=== PATIENT | female | born 1960 | race Caucasian/White ===

== ENCOUNTER → 2023-11-24 12:13 | Outpatient (REF) | payer BC, SELFPAY | LOC: WDC 12:13 | PROVIDERS: ATTENDING PHYSICIAN Family Medicine | DX: Z12.31 Encounter for screening mammogram for malignant neoplasm of breast (principal) | CPT/HCPCS: 77063; 77067 ==

== ENCOUNTER → 2023-12-28 12:03 | Outpatient (REF) | payer BC, SELFPAY | LOC: MRI 3T 12:03 | PROVIDERS: ATTENDING PHYSICIAN Family Medicine | DX: G43.809 Other migraine, not intractable, without status migrainosus (principal) | CPT/HCPCS: 70551 ==

== ENCOUNTER 2024-01-07 00:26 | Inpatient (IN) | payer BC, SELFPAY ==
[2024-01-06 19:11] VITALS: BP 122/72
--- NOTE | 2024-01-06 19:59 | ED.GENMED ---
History of Present Illness
General
Chief Complaint: Abdominal Symptoms
Source: patient
Exam Limitations: none
Time Seen by Provider: 01/06/24 19:34
History of Present Illness
History of Present Illness:
This is a 63 year old female that comes in with c/o diarrhea and abd pain. States that she started last night with diarrhea. States that she know thinks she has a UTI. States that she has abd pain and a migraine. States that she did take some
Pyridium. States that she has her normal migraine headache and feels lightheaded. States that she has urinary burning and frequency. staets that she was constipated and they gave her an emema and since that time she has had diarrhea. Denies
any fever, chills, chest pain, SOB, nausea, vomiting.
Past History
Past History
ED Past Medical History: HTN, Hypercholesterolemia, Psychiatric (Anxiety, depression) and Other (Kidney stones, Migraines, UTI, )
ED Past Surgical History: Gynecological (Hysterectomy), Orthopedic (Knee arthroscopies, Left ankle plates and screws), Urological (Lithotripsy with stent) and Other (Gastric band surgery 10/31, Rhizotomy, )
Social History
Tobacco: Non-smoker
Alcohol: None
Personal:
Living: with family
Employment: Employed
Family History
Family History: Other (Noncontributory)
Review of Systems
Review of Systems
All Other Systems: ROS reviewed and negative except as documented in HPI and ROS
Constitutional: Reports no symptoms; Denies fever or chills
EENT: Reports no symptoms
Respiratory: Reports no symptoms; Denies cough or trouble breathing
Cardiac: Reports no symptoms; Denies chest pain
ABD/GI: Reports abdominal pain and diarrhea; Denies nausea or vomiting
: Reports dysuria, frequency and urgency
Musculoskeletal: Reports no symptoms
Skin: Reports no symptoms
Neurological: Reports headache; Denies dizzy
Psychiatric: Reports no symptoms
Phy Exam
General Physical Exam
General Presentation: mild distress
General age: appears stated age
General Skin: warm and dry
General Habitus: normal
General Mental: alert
General Hydration: appears well hydrated
ENT Exam
ENT Exam: TM's normal, pharynx normal and neck supple
Eye Exam
Eye Exam: EOMI
Cardiovascular Exam
Cardiovascular Exam: regular rate/rhythm, no edema, no murmur and normal peripheral pulses
Pulmonary Exam
Pulmonary Exam: lungs clear, no respiratory distress, no rales, chest non tender, no crackles, no rhonchi, no wheezing and no cough
Gastrointestinal Exam
Gastrointestinal Exam: normal bowel sounds, soft, no organomegaly, no pulsatile mass, non distended and tender (Generalized tenderness with palpation)
Musculoskeletal Exam
Musculoskeletal Exam: full ROM and no edema
Skin Exam
Skin Exam: normal color, warm/dry, no rash and no petechia
Psychiatric Exam
Psychiatric Exam: normal mood/affect
Course
Orders/Labs/Results
Orders:
Orders
01/06/24 19:58
STOOL [C difficile Antigen & Toxins] Urgent
JANE Source: Feces/Stool
Specimen Description:
Stool Culture Urgent
JANE Source: Feces/Stool
Specimen Description:
Stool For WBC Urgent
JANE Source: Feces/Stool
Specimen Description:
0.9% Sodium Chloride 1000 ml [Nss] 1,000 ml IV BOLUS
Ketorolac [Toradol] 30 mg IV NOW STA
01/06/24 20:02
Acetaminophen 1000MG/100Ml [Ofirmev] 1,000 mg in 100 ml IV ONCE
Acetaminophen IV Indication:: ED Narcotic Naive Pt-ONCE
01/06/24 20:26
Complete Blood Count/With Diff Urgent
Comprehensive Metabolic Panel Urgent
01/06/24 20:33
Ondansetron Injectable [Zofran] 4 mg .ROUTE .[facility]
01/06/24 20:36
Ondansetron Injectable [Zofran] 4 mg IV NOW STA
01/06/24 21:07
CT Abd/pel (oral only)-[facility] Only Urgent
Comment:
Reason For Exam: Generalized abd pain
Iohexol [Omnipaque] See Protocol PO NOW STA
01/06/24 21:45
HYDROmorphone [Dilaudid] 0.5 mg IV NOW STA
01/06/24 22:06
Urinalysis Reflex To Culture Urgent
Date Specimen was Collected: 01/06/24
Time Specimen was Collected: 22:03
Urine Microscopic Reflex Cult Urgent
Urine Culture Urgent
JANE Source: U
Specimen Description:
Date Specimen was Collected: 01/06/24
Time Specimen was Collected: 22:03
Abnormal Lab Results
01/06/24 01/06/24
20:26 22:06
MCH 31.9 H pg
(27.0-31.0)
Absolute Neuts (auto) 7.9 H 10^3/uL
(1.4-6.5)
Absolute Lymphs (auto) 0.6 L 10^3/uL
(1.2-3.4)
Absolute Monos (auto) 0.8 H 10^3/uL
(0.1-0.6)
Neutrophils % 82.7 H %
(42.2-75.2)
Lymphocytes % 6.6 L %
(20.5-51.1)
Sodium 130 L mmol/L
(135-145)
Potassium 5.3 H mmol/L
(3.5-5.1)
Chloride 96 L mmol/L
(98-107)
Carbon Dioxide 21 L mmol/L
(22-30)
BUN 34 H mg/dl
(7-17)
Creatinine 2.1 H mg/dL
(0.6-1.0)
Glucose 147 H mg/dl
(70-99)
Calcium 10.8 H mg/dl
(8.4-10.2)
AST 37 H U/L
(14-36)
Alkaline Phosphatase 131 H U/L
(38-126)
Urine Nitrite (Reflex) Positive A
(Negative)
Urine Bilirubin 2+ A
(Negative)
Urine Urobilinogen 2+ A
(Neg - 1+)
Urine Bacteria (Reflex) Many A
(Negative)
01/06/24 20:26
01/06/24 20:26
Sodium slightly low. hyperkalemia, Chloride low. carbon dioxide low. acute renal insufficiency, Hyperglycemia, Calcium slightly elevated. Alk phos elevated, Urine positive for infection.
Vital Signs
Initial and Last Documented VS:
Initial Vital Signs
Temp Pulse Resp BP Pulse Ox
98.2 F 118 22 122/72 97
01/06/24 19:11 01/06/24 19:11 01/06/24 19:11 01/06/24 19:11 01/06/24 19:11
Last Documented Vital Signs
Temp Pulse Resp BP Pulse Ox
98.2 F 108 20 145/71 94
01/06/24 19:11 01/06/24 22:40 01/06/24 22:40 01/06/24 22:40 01/06/24 22:40
MDM/Problems Addressed
Differential Diagnosis Includes:
Colitis,
MDM/Problems Addressed:
This is a 63 year old female that comes in with c/o diarrhea and UTI. States that she started with diarrhea last night after she had an Enema and she has not stopped. States that she also feels she has a UTI from the diarrhea. States that she has a
migraine.
Will check labs, Give IV fluids, CT abd and medicate for pain.
Back into see patient. Explained that her Blood work shows acute renal insufficiency and that her CT shows she has colitis. Urine is most likely also showing infection. Patient states that she is still having abd pain. Will start on IV antibiotics
and admit patient. Hospitalist notified.
Chronic conditions affecting care:
NA
Acute Exacerbation and/or Progression of Chronic Illness:
NA
*Radiology
Radiology exam reviewed: radiology read reviewed (CT Night hawk- Diffuse colonic wall thickening, compatible with Underlying colitis. NO bowel obstruction. Distended gallbladder without secondary signs of choleystitis. Incidentals. Small ascites.
Gastric banding which appears in appropriate position. NO obstrauctive uropathy. No hepatic or ) and all reviewed NAD by ED Provider (CT cont- or pancreatic mass. No abdominal aortic aneurysm. No acute osseous abnormality. NO acute abnormality
within the visualized lungs. Mild distal esophageal wall thickening. )
*Pulse Oximetry
Patient hypoxic: no
*EKG
Interpreted by ED Provider?: NA
Rate: EKG- N/A
*Stallion Keeper Interpretation
Rate: Stallion Keeper- N/A
*Critical Care Note
Total Time (30-74mins, 75-104mins- exclusive of procedures): Not Applicable
ED Attending Note
-
Portions of this chart may have been created with voice recognition software.� Occasional wrong word or��sound alike� substitutions may have occurred due to the inherent limitations of voice recognition software.
Discharge Plan
Departure
Patient Disposition: Admit
Date of Disposition: 01/06/24
Time of Disposition: 23:58
Admit to: Med/Surg
Presentation/result/management discussed w/ accepting MD/DO: Hospitalist
Patient with high blood pressure during this ER visit?: Yes
Condition: Good
Covid-19: Not Applicable
Discharge Problem:
Abdominal pain, Colitis, Possible UTI
Prescriptions:
No Action
tizanidine 4 MG tablet
16 mg PO HS
risperidone 1 MG tablet
2 mg PO DAILY
amlodipine 5 MG tablet
5 mg PO DAILY
diphenhydramine HCl [Banophen] 25 MG capsule
50 mg PO HS
mirabegron [Myrbetriq] 50 MG tablet extended release 24 hr
50 mg PO DAILY
lamotrigine [Lamictal] 150 MG tablet
150 mg PO DAILY
risperidone 2 MG tablet
4 mg PO HS
lorazepam 0.5 MG tablet
1 mg PO HS
Patient Comments:
patient picked up on 12/25/20 #90
zolpidem 5 MG tablet
5 mg PO HS
Patient Comments:
pdmp picked up on 01/08/21 #30 for 30 days
lamotrigine 100 MG tablet
100 mg PO DAILY
venlafaxine 225 MG tablet extended release 24hr
225 mg PO DAILY
Demerol 100 MG tablet
50 mg PO Q6HPRN PRN (Reason: migraines)
Patient Comments:
pdmp picked on 12/20/2020# 68 for 17 days
zaleplon 10 MG capsule
10 mg PO HS
Patient Comments:
pdmp hop picker on 01/15/2021# 30 for 30 days
metaxalone [Skelaxin] 800 MG tablet
800 mg PO TIDPRN PRN (Reason: muscle pain)
Emgality Syringe
1 dose IM MONTHLY
hydrocodone-acetaminophen 1 TABLET tablet
1 tab PO Q4HPRN PRN (Reason: pain)
Rx Instructions:
5mg tab
Referrals:
UNKNOWN - PT DOES,NOT KNOW [Unknown Provider] -
Interventions
Interventions:
*Risk Screen - Suicide Last Done: 01/06/24 19:11
*General Assessment Last Done: 01/06/24 20:11
*Neglect/Abuse Screening Last Done: 01/06/24 19:11
*ED COVID-19 Vaccine History Last Done: 01/06/24 20:11
IE-Ptrase-Tsohwmrclt Assessment Last Done: 01/06/24 20:13
ED-Female Genitourinary Assessment Last Done: 01/06/24 20:13
ED- Neurological Assessment Last Done: 01/06/24 20:13
Discharge Date and Time
Print Language: GABONESE
[2024-01-06 20:10] VITALS: BMI 24.7
[2024-01-06] MEDS: NSS 1000 IV (20:34)
[2024-01-06 20:35] LABS: Hematocrit 39.3 % (37.0-47.0); Hemoglobin 13.8 g/dL (12.0-16.0); Mean Corp Hgb Conc. 35.1 g/dL (33.0-37.0); Mean Corpuscular Hgb 31.9 pg (27.0-31.0); Mean Corpuscular Volume 90.8 fL (81.0-99.0); Mean Platelet Volume 9.7 fL (7.4-10.4); Platelet Count 286 10^3/uL (130-400); Red Blood Cell Count 4.33 10^6/uL (4.20-5.40); Red Cell Dist. Width 13.1 % (11.5-14.5); White Blood Cell Count 9.5 10^3/uL (4.8-10.8)
[2024-01-06] MEDS: TORADOL 30 MG IV (20:35)
[2024-01-06] MEDS: OFIRMEV 100 IV (20:35)
[2024-01-06] MEDS: ZOFRAN 4 MG IV (20:36)
[2024-01-06 20:53] LABS: % Basophils 0.6 % (0-2); % Eosinophils 1.4 % (0-6); % Immature Granulocytes 0.2 % (0-0.5); % Lymphocytes 6.6 % (20.5-51.1); % Monocytes 8.5 % (1.7-9.3); % Neutrophils 82.7 % (42.2-75.2); Absolute Basophils 0.1 10^3/uL (0-0.2); Absolute Eosinophils 0.1 10^3/uL (0-0.7); Absolute Lymphocytes 0.6 10^3/uL (1.2-3.4); Absolute Monocytes 0.8 10^3/uL (0.1-0.6); Absolute Neutrophils 7.9 10^3/uL (1.4-6.5); Nucleated Red Blood Cells % 0 %
[2024-01-06 20:54] LABS: ALT (SGPT) 23 U/L (0-35); AST (SGOT) 37 U/L (14-36); Albumin 4.3 g/dl (3.5-5.0); Alkaline Phosphatase 131 U/L (38-126); Blood Urea Nitrogen 34 mg/dl (7-17); Calcium 10.8 mg/dl (8.4-10.2); Carbon Dioxide 21 mmol/L (22-30); Chloride 96 mmol/L (98-107); Estimated Creatinine Clearance 25 ml/min; Glucose 147 mg/dl (70-99); Potassium 5.3 mmol/L (3.5-5.1); Sodium 130 mmol/L (135-145); Total Bilirubin 0.7 mg/dl (0.2-1.3); Total Protein 6.7 g/dl (6.3-8.2); eGFR 26.31
[2024-01-06] MEDS: OMNIPAQUE 50 ML PO (21:19)
[2024-01-06 21:22] VITALS: BP 145/71
[2024-01-06] MEDS: DILAUDID 0.5 MG IV (21:56)
[2024-01-06 22:03] VITALS: BP 145/71
[2024-01-06 22:13] LABS: Urine Albumin Trace (Neg - Trace); Urine Bilirubin 2+ (Negative); Urine Character Clear (Clear); Urine Color Orange; Urine Glucose Negative (Negative); Urine Ketone Negative (Negative); Urine Leukocyte Negative (Negative); Urine Nitrite Positive (Negative); Urine Occult Blood Negative (Negative); Urine Urobilinogen 2+ (Neg - 1+)
[2024-01-06 22:22] LABS: Urine Bacteria Many (Negative); Urine Red Blood Cell 0-2 /HPF (0-2)
[2024-01-06 22:23] LABS: Urine Hyaline Cast 0-2 /LPF (0-2)
[2024-01-06 22:40] VITALS: BP 145/71
[2024-01-07] MEDS: DILAUDID 1 MG IV ×6 (00:04→19:27)
[2024-01-07] MEDS: ZOSYN 50 IV ×5 (00:05→23:58)
[2024-01-07 00:17] VITALS: BP 106/68
--- NOTE | 2024-01-07 00:22 | HPS.HSE ---
Family Physician
-
Family Physician: Karan Menjivar Jr.
Chief Complaint
-
abdominal pain, Urinary sxa, dirrhea
History of Present Illness
63F HX HX HTN, CKD pw diarrhea and abd pain associated with migraine
Associated urinary Sx with dysuria
ROS
constipated and they gave her an emema and since that time she has had diarrhea.
Denies any fever, chills, chest pain, SOB, nausea, vomiting.
Medical History
Past Medical History
Past Medical History: Reports Other
Additional Past Medical History:
HTN, Hypercholesterolemia, Psychiatric (Anxiety, depression) and Other (Kidney stones, Migraines, UTI, ) CKD3
Past Surgical History: Reports Other
Additional Past Surgical History:
Gynecological (Hysterectomy), Orthopedic (Knee arthroscopies, Left ankle plates and screws), Urological (Lithotripsy with stent) and Other (Gastric band surgery 10/31, Rhizotomy, )
Social History
Tobacco: Non-smoker
Drug: None
Family History
Family History: Not pertinent
Allergies / Home Medications
Allergies reflects when Allergies were last updated in [facility].
Home Medications with original date entered in [facility]
Allergy/Medication List:
Allergies
Allergy/AdvReac Type Severity Reaction Status Date / Time
CAIO Inhibitors Allergy Anaphylaxis Verified 01/06/24 19:14
latex Allergy WELTS Verified 01/06/24 19:14
Home Medications
risperidone 1 mg tablet 2 mg PO DAILY 06/28/14
tizanidine 4 mg tablet 16 mg PO HS 06/28/14
amlodipine 5 mg tablet 5 mg PO DAILY 10/06/17
diphenhydramine HCl 25 mg capsule (Banophen) 50 mg PO HS 10/06/17
mirabegron 50 mg tablet,extended release 24 hr (Myrbetriq) 50 mg PO DAILY 10/06/17
lamotrigine 100 mg tablet 100 mg PO DAILY 10/27/19
lamotrigine 150 mg tablet (Lamictal) 150 mg PO DAILY 10/27/19
lorazepam 0.5 mg tablet 1 mg PO HS anxiety 10/27/19
meperidine 100 mg tablet (Demerol) 50 mg PO Q6HPRN PRN migraines 10/27/19
metaxalone 800 mg tablet (Skelaxin) 800 mg PO TIDPRN PRN muscle pain 10/27/19
risperidone 2 mg tablet 4 mg PO HS 10/27/19
venlafaxine 225 mg tablet,extended release 24 hr 225 mg PO DAILY 10/27/19
zaleplon 10 mg capsule 10 mg PO HS Sleep 10/27/19
zolpidem 5 mg tablet 5 mg PO HS Sleep 10/27/19
Emgality Syringe 1 dose IM MONTHLY 01/06/24
hydrocodone 5 mg-acetaminophen 325 mg tablet 1 tab PO Q4HPRN PRN pain 01/06/24
Review of Systems
-
Constitutional: Reports No Symptoms
EENT: Reports No Symptoms
Respiratory: Reports No Symptoms
Cardiac: Reports No Symptoms
Abdomen/GI: Reports See HPI, Abdominal Pain and Diarrhea
: Reports No Symptoms
Musculoskeletal: Reports No Symptoms
Skin: Reports No Symptoms
Neurological: Reports No Symptoms
Endocrine: Reports No Symptoms
Hematologic/Lymphatic: Reports No Symptoms
Psych: Reports No Symptoms
Physical Exam
Vital Signs
Vital Signs
Temp Pulse Resp BP Pulse Ox
98.2 F 105 20 106/68 96
01/06/24 19:11 01/07/24 00:17 01/07/24 00:17 01/07/24 00:17 01/07/24 00:17
Physical Exam
General: Well Developed, Well Nourished and No Apparent Distress
HEENT: NormoCephalic, Moist mucous membranes and Atraumatic
Respiratory: Clear
Cardiac: S1/S2 and Regular Rhythm; No Murmur or Rub
GI: Soft, Non Distended, Normal Bowel Sounds and Tender (diffusely tender , Non guarded ); No Organomegaly
Rectal: Deferred by Provider
Musculoskeletal: No Clubbing, No Cyanosis and No Edema
Skin: No Rash
Neuro: Nonfocal/grossly intact
Psych: Calm and Intact Judgment/Insight
Laboratory Results
-
01/06/24 20:26
01/06/24 20:26
Laboratory Results
Total Bilirubin 0.7 mg/dl (0.2-1.3) 01/06/24 20:26
AST 37 U/L (14-36) H 01/06/24 20:26
ALT 23 U/L (0-35) 01/06/24 20:26
Alkaline Phosphatase 131 U/L (38-126) H 01/06/24 20:26
Data Reviewed
-
CT Scan: Report Reviewed by me
Lab Data: Labs Reviewed by me
Impression/Plan
-
Reviewed VS: ST 108 BP 145/71
Data
unremarkable CBC
Na 130
K 5.3
Cl 96
BUN 21
Cr 2.1 - baseline 0.9
CT AP:
- Diffuse colonic wall thickening, compatible with Underlying colitis.
- NO bowel obstruction.
- Distended gallbladder without secondary signs of choleystitis.
- Incidentals. Small ascites. Gastric banding which appears in appropriate position.
- NO obstructive uropathy.
- No hepatic or pancreatic mass.
- No abdominal aortic aneurysm.
- No acute osseous abnormality.
- NO acute abnormality within the visualized lungs. Mild distal esophageal wall thickening. )
ASSESSMENT AND PLAN:
CT POS for Colitis NOS
Acute abdominal pain with diarrhea s/p Enema
HX Hemmorhoids
- IVF
- Empiric Zosyn
- stool Cx
- Narcotic Analgesia PRN
TORY on CKD stage 3, unclear etiology of the CKD
Hyperkalemia
- IVF and trend Cr and K
Chr Dx
Essential Hypertension.
Hyperlipidemia.
Anxiety and depression.
Insomnia
- cont all OP med Pending Rx reconciliation
DVT Px: SQH
Code: Full
IP MS
[2024-01-07 01:40] VITALS: BP 110/67; BMI 24.0
[2024-01-07] MEDS: NSS 1000 IV ×3 (02:00→20:55)
[2024-01-07] MEDS: ZOFRAN 4 MG IV (02:30)
[2024-01-07] MEDS: DILAUDID 0.5 MG IV ×2 (02:30→12:15)
--- NOTE | 2024-01-07 02:59 | DOWNTIME ---
There was a [employer] Client Building Maintenance Supervisor Downtime on 01/07/2024 from 0100 to 01/07/2024 at 0252. Downtime documentation of patient's care, including medication administrations, has been reconciled in the electronic record per guidelines. Refer to the
patient's paper chart under the miscellaneous tab to see printed paper medication records and downtime forms.
[2024-01-07] MEDS: NSS IV (03:12)
--- NOTE | 2024-01-07 03:16 | DOWNTIME ---
There was a [employer] Client Brake Operator Heavy Duty Downtime on 01/07/2024 from 0100 to 01/07/2024 at 0252. Downtime documentation of patient's care, including medication administrations, has been reconciled in the electronic record per guidelines. Refer to the
patient's paper chart under the miscellaneous tab to see printed paper medication records and downtime forms.
--- NOTE | 2024-01-07 03:51 | PTCARENOTE ---
Patient arrived via stretcher around 01:45 with dx of Colitis, NOS. AAOx3. Pleasant and cooperative with care. Oriented to unit. [facility] [place] within reach. Educated that she must use [place] for assistance. Patient acknowledged and agreed on using
call [place] for assistance.
[2024-01-07 07:30] VITALS: BP 81/52
[2024-01-07] MEDS: RISPERDAL 2 MG PO (09:08)
[2024-01-07] MEDS: LAMICTAL 150 MG PO (09:08)
[2024-01-07] MEDS: LAMICTAL 100 MG PO (09:11)
[2024-01-07] MEDS: DETROL LA 4 MG PO (09:12)
[2024-01-07] MEDS: EFFEXOR XR 225 MG PO (09:12)
[2024-01-07] MEDS: HEPARIN 5000 UNITS SC ×2 (09:13→19:25)
[2024-01-07 09:16] LABS: Hematocrit 32.8 % (37.0-47.0); Hemoglobin 11.2 g/dL (12.0-16.0); Mean Corp Hgb Conc. 34.1 g/dL (33.0-37.0); Mean Corpuscular Hgb 32.5 pg (27.0-31.0); Mean Corpuscular Volume 95.1 fL (81.0-99.0); Mean Platelet Volume 9.8 fL (7.4-10.4); Platelet Count 235 10^3/uL (130-400); Red Blood Cell Count 3.45 10^6/uL (4.20-5.40); Red Cell Dist. Width 13.2 % (11.5-14.5); White Blood Cell Count 5.3 10^3/uL (4.8-10.8)
--- NOTE | 2024-01-07 09:29 | CON.GI ---
Addendum entered and electronically signed by Kolton Orona MD 01/07/24 12:11:
I saw and examined the patient.
The ECOLOGY PROFESSOR or PA's note was reviewed and I agree with the note.
Comment: 63yo female presents with sudden onset severe abd pain x 1 day. She was constipated and took enema resulting in diarrhea with some blood She has been on ozempic but held it for the last 5 weeks while travelling to [place]. CT shows
pancolitis. WBC normal but Cr elevated 2.1 and lactate 2.4.
On exam she is diffusely tender with guarding
REC:
NPO
Cont IV abx- zosyn
Recheck BMP and lactate this PM to trend
If she worsens, would consult Surgery
Ischemic bowel is a possibility, but unusual to cause pancolitis. Will follow closely
Original Note:
Consultation
-
Date/Time Consultation Requested: 01/07/24 003
Date/Time Consultation Performed: 01/07/24929
Requesting Provider: Hao Fuentes MD
Performing Provider: CALLIE Leahy, Kolton Orona MD
Reason for Consultation: abdominal pain/pancolitis
Medical History
Chief Complaint / HPI
Chief Complaint: abdominal pain, diarrhea, rectal bleeding
History of Present Illness:
Pt is a 63yo with hx HTN, anxiety, depression, gastric lap band surgery, hysterectomy, renal stones, migraines with new Emgality, wt loss with recent Ozempic use now presents with abdominal pain. On admission Ct with oral contrast only with
concern for colonic wall thickening-pancolitis and noted distended GB without stones. Labs stable with some drop of hbg 13.8 to 11.2 after admission and Na 130, K 5.3, creat 2.1, calcium 10.8, bili 0.7, AST 37, ALT 23, alk phos 131. She was also
noted with tachycardia and hypotension on admission. In reviewing with patient noted with travel to [place] December 07 til December 21. She was find on return but admits to onset of abdominal pain 2 days prior to admission. Pain was severe and
constant 10/10 with noted diarrhea and red blood in stools. She denies any recent abx but started Ozempic 3 months ago and Emgality 4 months ago. She also admits to frequent NSAID use for migraines.
Pt denies hx colitis in past. Usual stool patern with BM every several days. She denies dysphagia, GERD, vomiting, or black stools. hx colonoscopy [address] Kan non bleeding internal hemorrhoids colon normal.
Past Medical History
Past Medical History: HTN, Psychiatric (anxiety/depression) and Other (renal stones, migraines, UTI)
Past Surgical History: Gynecological (hysterectomy), Urological (lithotripsy and stent ) and Other (gastric band surgery , Rhizotomy)
Social History
Tobacco: Non-Smoker
Alcohol: None
Drug: None
Personal:
Living: With Family
Employment: Employed
Family History
Family History: Other (no family hx colon CA or polyps, no family hx IBD)
Allergies / Home Medications
Allergy/AdvReac Type Severity Reaction Status Date / Time
CAIO Inhibitors Allergy Anaphylaxis Verified 01/06/24 19:14
latex Allergy WELTS Verified 01/06/24 19:14
�Medication �Instructions �Recorded
risperidone 1 mg tablet 2 mg PO DAILY Mental Health/Anxiety 06/28/14
tizanidine 4 mg tablet 16 mg PO HS Muscle Spasms 06/28/14
amlodipine 5 mg tablet 5 mg PO DAILY Blood Pressure 10/06/17
diphenhydramine HCl 25 mg capsule 50 mg PO HS anti-histamine 10/06/17
(Banophen)
mirabegron 50 mg tablet,extended 50 mg PO DAILY Urinary Issue 10/06/17
release 24 hr (Myrbetriq)
lamotrigine 100 mg tablet 100 mg PO DAILY Seizures 10/27/19
lamotrigine 150 mg tablet 150 mg PO DAILY Seizures 10/27/19
(Lamictal)
lorazepam 0.5 mg tablet 1 mg PO HS anxiety 10/27/19
meperidine 100 mg tablet (Demerol) 50 mg PO Q6HPRN PRN migraines 10/27/19
metaxalone 800 mg tablet (Skelaxin) 800 mg PO TIDPRN PRN muscle pain 10/27/19
risperidone 2 mg tablet 4 mg PO HS Mental Health/Anxiety 10/27/19
venlafaxine 225 mg tablet,extended 225 mg PO DAILY Depression 10/27/19
release 24 hr
zaleplon 10 mg capsule 10 mg PO HS Sleep 10/27/19
zolpidem 5 mg tablet 5 mg PO HS Sleep 10/27/19
Emgality Syringe 1 dose IM MONTHLY MIGRAINE 01/06/24
hydrocodone 5 mg-acetaminophen 325 1 tab PO Q4HPRN PRN pain 01/06/24
mg tablet
Review of Systems
-
History Source: Patient
Constitutional: Reports Weight Loss ( 20 lb with Ozempic use)
EENT: Reports No Symptoms
Respiratory: Reports No Symptoms
Cardiac: Reports No Symptoms
Abdomen/GI: Reports Abdominal Pain, Diarrhea and Bloody Stools
: Reports Other (? current UTI)
Musculoskeletal: Reports No Symptoms
Skin: Reports No Symptoms
Neurological: Reports Weakness
Endocrine: Reports No Symptoms
Hematologic/Lymphatic: Reports Bleeding
Vital Signs
Temp Pulse Resp BP Pulse Ox
98.4 F 100 16 92/57 92
01/07/24 07:30 01/07/24 09:19 01/07/24 07:30 01/07/24 09:19 01/07/24 07:30
Physical Exam
Exam
General: Well Developed, Well Nourished and No Apparent Distress
HEENT: Normocephalic, Anicteric and Moist Mucous Membranes
Respiratory: Clear
Cardiac: Other (tachy)
GI: Soft, Tender (diffuse with some guarding) and Distended
Musculoskeletal: No Clubbing and No Cyanosis
Skin: Warm and Dry
Neuro: Awake, Alert and AO x 3
Psych: Calm
Results
WBC 5.3 10^3/uL (4.8-10.8) 01/07/24 08:44
Hgb 11.2 g/dL (12.0-16.0) L 01/07/24 08:44
Hct 32.8 % (37.0-47.0) L 01/07/24 08:44
MCV 95.1 fL (81.0-99.0) 01/07/24 08:44
Plt Count 235 10^3/uL (130-400) 01/07/24 08:44
Absolute Neuts (auto) 7.9 10^3/uL (1.4-6.5) H 01/06/24 20:26
Sodium 130 mmol/L (135-145) L 01/06/24 20:26
Potassium 5.3 mmol/L (3.5-5.1) H 01/06/24 20:26
Chloride 96 mmol/L (98-107) L 01/06/24 20:26
Carbon Dioxide 21 mmol/L (22-30) L 01/06/24 20:26
BUN 34 mg/dl (7-17) H 01/06/24 20:26
Creatinine 2.1 mg/dL (0.6-1.0) H 01/06/24 20:26
Calcium 10.8 mg/dl (8.4-10.2) H 01/06/24 20:26
Total Bilirubin 0.7 mg/dl (0.2-1.3) 01/06/24 20:26
AST 37 U/L (14-36) H 01/06/24 20:26
ALT 23 U/L (0-35) 01/06/24 20:26
Alkaline Phosphatase 131 U/L (38-126) H 01/06/24 20:26
Diagnostic Image Results:
CT A/P oral only
1. Diffuse colonic wall thickening likely related to an infectious or inflammatory pancolitis. Overall somewhat limited evaluation in the absence of intravenous contrast.
2. Distended gallbladder without radiopaque gallstones by CT. A follow-up abdominal ultrasound could be considered if clinically indicated.
Prior GI Procedures:
EGD: none
Colonoscopy: 2016 [facility], otherwise normal
Assessment / Plan
-
Pt is a 63yo with hx HTN, anxiety, depression, gastric lap band surgery, hysterectomy, renal stones, migraines with new Emgality, wt loss with recent Ozempic use now presents with abdominal pain. On admission Ct with oral contrast only with
concern for colonic wall thickening-pancolitis and noted distended GB without stones. Labs stable with some drop of hbg 13.8 to 11.2 after admission and Na 130, K 5.3, creat 2.1, calcium 10.8, bili 0.7, AST 37, ALT 23, alk phos 131. She was also
noted with tachycardia and hypotension on admission. In reviewing with patient noted with travel to [place] December 07 til December 21. She was find on return but admits to onset of abdominal pain 2 days prior to admission. Pain was severe and
constant 10/10 with noted diarrhea and red blood in stools. She denies any recent abx but started Ozempic 3 months ago and Emgality 4 months ago. She also admits to frequent NSAID use for migraines.
-abdominal pain/diarrhea/rectal bleeding with pancolitis
-tachycardia/hypotension on admission
-TORY
-hyponatremia
-recent travel to [place] December 07- December 21
-recent wt loss with Ozempic use
-migraine with new Emgality 4month ago and frequent NSAID use
-hx renal stones
-gastric lap band
-hysterectomy
-HTN
-anxiety/depression
PLAN:
Etiology of pancolitis unclear -- infectious, ischemic, vs other - no colitis listed with side effects with newly started Ozempic or Emgality but Ozempic noted with TORY
concern with worsening TORY after admission with tachycardia and hypotension
add lactic acid level
NPO
serial exams
maintain perfusion
await stool studies with diarrhea add giardia/cypto
if not improving consider colorectal surgical evaluation with degree of pain on exam, tachycardia, hypotension
cont abx
consider renal eval with worsening TORY
discussed NSAID avoidance with risk of kidney issue and PUD
-
-
Thank you for consultation and allowing me to participate in the patient's care. Please call the reduction plant supervisor GI physician during the after hours with any questions or concerns.
[2024-01-07 09:54] LABS: Blood Urea Nitrogen 45 mg/dl (7-17); Carbon Dioxide 21 mmol/L (22-30); Chloride 100 mmol/L (98-107); Estimated Creatinine Clearance 20 ml/min; Glucose 99 mg/dl (70-99); Potassium 4.1 mmol/L (3.5-5.1); Sodium 130 mmol/L (135-145); eGFR 20.36
[2024-01-07 11:42] LABS: Lactic Acid 2.4 mmol/L (0.7-2.0)
[2024-01-07 15:06] VITALS: BP 93/58
--- NOTE | 2024-01-07 16:09 | W.PN.HOSP.TC ---
Today's Communication/Plan
-
All discussed with the patient and her at bedside and expressed understanding
CODE STATUS full code
DVT prophylaxis heparin subcu will monitor for bleeding closely
Discussed with the nurse
Assessment / Plan
Assessment / Plan
Physical exam:
General: Awake, alert and oriented x3, not in distress and holds appropriate conversation.
HEENT: No active discharge, ecchymosis or bruising, moist lips, tongue and mucous membrane.
Eyes: No discharge or red conjunctiva, no nystagmus, pupils are reactive and equal
Neck:Supple, no JVD no bruit no goiter.
Respiratory: Normal AP contour and diameter, normal chest wall movement, normal respiratory effort, no respiratory distress,
Lungs: Good air entry bilaterally, no wheezing or rhonchi, no rales or crackles
Heart: S1, S2 regular, normal rate, no added sound.
Gastrointestinal: Positive bowel sounds, soft, distended and tympanic, mild generalized tenderness with guarding but no rigidity or organomegaly
Extremities: No pitting edema, good peripheral pulses, good range of motion
Skin: Warm and dry, no ulceration, normal color.
Neurological: Awake, alert and oriented x3, no facial droop and moves extremities for speech clear and comprehensive, good muscle tone,
Psychiatric: Normal mood, normal thought and judgment, normal affect,
63-year-old female with history of hypertension, been taking Ozempic lately presented to the hospital with abdominal pain with diarrhea, CT scan showed colitis, infectious versus other causes need to be considered, doubt or ischemic colitis but need
to be considered.
Generalized abdominal pain: Possibly related to colitis, infectious versus other cause like inflammatory or ischemic need to be considered.
As discussed with GI. Keep n.p.o. since abdominal still distended had diarrhea
Increase IV fluid to 125 mL/h
Lactic acid check was 2.4 repeat is pending
Check lipase
Continue Zosyn
Pain and nausea medication.
Stool for C. difficile and cultures been negative so far.
Schedule GI if not improving will consider colorectal surgery eval.
Low threshold to upgrade to higher level of care
Acute kidney injury: Multifactorial including dehydration, hypotension, NSAID intake.
Worsening, Initially was 2.1 and this morning is 2.6
Repeat is pending if continued to get worse we will consult nephrology as discussed with the patient
Hyponatremia: Likely secondary to recurrent diarrhea and poor oral intake, present on admission
Recheck
IV fluid
Hyperkalemia: Potassium on admission was 5.3
Improved
Recheck
Hypertension:
Pressure on the low side, hold amlodipine
Crease IV fluid
Continue to monitor
Hemoglobin dropped, on admission was 13.8 and today is 11.2 baseline is around 11-12. Likely hemodilution versus hemoconcentration earlier.
Migraine: Continue lamotrigine.
Anxiety: Stable continue lorazepam at bedtime.
Anticipated Discharge: > 48 hours
Subjective/Interval History
-
Date of Service: January 07, 2024
Seen and examined, awake and alert, at the bedside, still complaining of abdominal pain emesis feels bloated and had 3-4 episodes of diarrhea with occasionally a red tinge, denies any clots in the stool or any hematemesis or nausea or
vomiting, no fever or chills or cough or congestion, still NPO. Abdominal distended. Passes gas,
Denies sick contact or recent travel or antibiotic intake.
Objective Data
-
Labs:
Laboratory Results
01/07/24 01/07/24
08:44 17:00
WBC 5.3
Hgb 11.2 L
Hct 32.8 L
Plt Count 235
Sodium 130 L Pending
Potassium 4.1 Pending
Chloride 100 Pending
Carbon Dioxide 21 L Pending
BUN 45 H Pending
Creatinine 2.6 H Pending
Glucose 99 Pending
Calcium 9.0 D Pending
Vital Signs:
Vital Signs
Temp Pulse Resp BP Pulse Ox
98.9 F 105 16 93/58 94
01/07/24 15:06 01/07/24 15:06 01/07/24 15:06 01/07/24 15:06 01/07/24 15:06
I&O
01/06/24 01/07/24 01/08/24
07:59 07:59 07:59
Intake Total 240 / 240
Balance 240 / 240
Review of Systems
-
All other systems: Reviewed and negative
--- NOTE | 2024-01-07 16:38 | CM ---
discovery manager reviewed patient's chart and met with patient and patient lives with spouse in a 2 story home, patient is independent with adl's and ambulation, no dme, patient drives.
Pharmacy: [facility]
PCP: Dr. Menjivar
Plan; Home when stable, no needs.
[2024-01-07 17:48] LABS: Lactic Acid 1.7 mmol/L (0.7-2.0)
[2024-01-07 17:52] LABS: Blood Urea Nitrogen 46 mg/dl (7-17); Calcium 8.5 mg/dl (8.4-10.2); Carbon Dioxide 19 mmol/L (22-30); Chloride 101 mmol/L (98-107); Estimated Creatinine Clearance 23 ml/min; Glucose 87 mg/dl (70-99); Lipase 32 U/L (23-300); Potassium 5.1 mmol/L (3.5-5.1); Sodium 132 mmol/L (135-145); eGFR 23.59
[2024-01-07] MEDS: ATIVAN 1 MG PO (21:02)
[2024-01-07] MEDS: AMBIEN 5 MG PO (21:02)
[2024-01-07] MEDS: ZANAFLEX 16 MG PO (21:03)
[2024-01-07] MEDS: RISPERDAL 4 MG PO (21:03)
[2024-01-07] MEDS: NON-FORMULARY ITEM 10 MG PO (21:03)
[2024-01-07 23:02] VITALS: BP 101/63
--- NOTE | 2024-01-08 00:10 | PTCARENOTE ---
Patient AAOX3. Patient had recent fall at home due to lightheadedness with no loss of consciousness and no injury per patient. Patient educated by RN on fall prevention and recommendation of bed alarm for safety. Patient refused bed alarm despite
education. Patient agreed to and as of current time has been ringing for assistance. With every round, when patient is awake, RN and PCT reinforce how she must use call [place] for assistance. Patient has made no attempts to get up on own.
[2024-01-08] MEDS: DILAUDID 1 MG IV ×3 (01:50→21:02)
[2024-01-08] MEDS: NSS 1000 IV ×3 (05:19→23:17)
[2024-01-08] MEDS: ZOSYN 50 IV ×4 (05:19→23:16)
[2024-01-08 07:30] VITALS: BP 90/52
[2024-01-08] MEDS: EFFEXOR XR 225 MG PO (07:57)
[2024-01-08] MEDS: DETROL LA 4 MG PO (07:58)
[2024-01-08] MEDS: RISPERDAL 2 MG PO (07:58)
[2024-01-08] MEDS: LAMICTAL 150 MG PO (07:59)
[2024-01-08] MEDS: HEPARIN 5000 UNITS SC (08:04)
[2024-01-08] MEDS: LAMICTAL 100 MG PO (08:04)
[2024-01-08 08:09] LABS: Hematocrit 27.2 % (37.0-47.0); Hemoglobin 9.3 g/dL (12.0-16.0); Mean Corp Hgb Conc. 34.2 g/dL (33.0-37.0); Mean Corpuscular Hgb 32.7 pg (27.0-31.0); Mean Corpuscular Volume 95.8 fL (81.0-99.0); Mean Platelet Volume 9.6 fL (7.4-10.4); Platelet Count 193 10^3/uL (130-400); Red Blood Cell Count 2.84 10^6/uL (4.20-5.40); Red Cell Dist. Width 13.3 % (11.5-14.5)
[2024-01-08 08:18] LABS: Lactic Acid 0.8 mmol/L (0.7-2.0)
[2024-01-08 08:50] LABS: ALT (SGPT) 14 U/L (0-35); AST (SGOT) 31 U/L (14-36); Albumin 2.4 g/dl (3.5-5.0); Alkaline Phosphatase 81 U/L (38-126); Blood Urea Nitrogen 43 mg/dl (7-17); Calcium 7.8 mg/dl (8.4-10.2); Carbon Dioxide 17 mmol/L (22-30); Chloride 107 mmol/L (98-107); Estimated Creatinine Clearance 27 ml/min; Glucose 57 mg/dl (70-99); Magnesium 3.4 mg/dl (1.6-2.3); Sodium 132 mmol/L (135-145); Total Bilirubin 0.5 mg/dl (0.2-1.3); Total Protein 4.6 g/dl (6.3-8.2)
[2024-01-08 08:59] LABS: Absolute Neutrophils -Man Diff 5.3 10^3/uL (1.4-6.5); Band Neutrophils 17 % (0-3); Lymphocytes 16 % (20-51); Monocytes 8 % (2-9); Platelets Checked Yes; Segmented Neutrophils 59 % (42-75)
[2024-01-08 09:00] LABS: Anisocytosis Slight; Normal RBC Morphology No; Ovalocytes Slight; Total Cells Counted 100
--- NOTE | 2024-01-08 09:45 | W.PN.GI.CBS2 ---
Addendum entered and electronically signed by Kolton Orona MD 01/08/24 14:17:
I saw and examined the patient.
The ENVIRONMENTAL OFFICER or PA's note was reviewed and I agree with the note.
Comment: Pt feeling better this afternoon. Asking to start clears
ABD soft, much less tender, no guarding
REC:
OK to try clears
Follow CBC, BMP closely
Lactate improved
C diff negative. E coli negative. Await rest of stool cultures
Probable infectious colitis, ischemia less likely. Recent ozempic may be contributing
Original Note:
Today's Communication / Plan
-
Continue abx. NPO with ice chips. Serial abdominal exams. Monitor for fevers. Ensure adequate perfusion. Monitor BP closely.
Assessment / Plan
-
The pt is a pleasant 63yo female with a PMH significant for HTN, anxiety, depression, prior gastric lap band surgery, hysterectomy, renal stones, migraines with new Emgality, wt loss with recent Ozempic use, who presented to the ER with complaints
of abdominal pain and diarrhea with blood. CT imaging with oral contrast only showed findings consistent with pancolitis and noted distended GB without stones. Labs stable with some drop of hbg 13.8 to 11.2 after admission and Na 130, K 5.3, creat
2.1, calcium 10.8, bili 0.7, AST 37, ALT 23, alk phos 131. She had subsequent tachycardia and hypotension on admission. Lactic acid elevated initially but normalized. She was placed on IV Zosyn and IV fluids and made NPO for GI evaluation. Prior
colon[place] [address] Kan which was normal aside from hemorrhoids. She had recent travel to [place] December 07 til December 21 but without symptoms after return. On admission she admitted to frequent NSAID use for migraines.
Problem list:
-abdominal pain/diarrhea/rectal bleeding with pancolitis
-tachycardia/hypotension on admission
-TORY
-hyponatremia
-recent travel to [place] December 07- December 21
-mild acidosis
-lactic acidosis, resolved
Other pertinent medical hx:
-recent wt loss with Ozempic use
-migraine with new Emgality 4month ago and frequent NSAID use
-hx renal stones
-gastric lap band
-hysterectomy
-HTN
-anxiety/depression
Recommendations:
-Etiology of pancolitis unclear. Possibly infectious v ischemic v inflammatory v other. She has been hypotensive here, may favor ischemic nature v infection (many WBC seen in stool).
---CT imaging show pancolitis. Started on IV zosyn. Very tender on exam with slight improvement per pt.
-For now follow stool studies (Cdiff, giardia, crypto negative, Many WBC seen, culture is pending)
-Continue NPO for now, OK for ice chips, if improving advance to clear liquids
-IV Abx with Zosyn
-Monitor for fevers
-Ensure adequate perfusion. Monitor BP closely
-Continue with serial abdominal exams
-Consider CRS evaluation if she is worsening (stable for now)
-Monitor renal function, defer to hospitalist
-Further management pending clinical course
Subjective
Subjective
Date of Service: January 08, 2024
The pt was seen and examined at the bedside. She continues with significant abdominal tenderness in the lower abdomen. She feels somewhat improved from yesterday in regards to the pain. She feels more distended today. Labs reviewed, improved Cr to
2.0 but with slightly worsening acidosis (Bicarb 17, lactic acid normal). No BM today. She is not passing gas. Her BP was mildly low this am 90/52.
Objective
Data Reviewed
Laboratory Data:
Laboratory Results
01/08/24 07:55
01/08/24 07:55
Laboratory Results
Magnesium 3.4 mg/dl (1.6-2.3) H 01/08/24 07:55
Total Bilirubin 0.5 mg/dl (0.2-1.3) 01/08/24 07:55
AST 31 U/L (14-36) 01/08/24 07:55
ALT 14 U/L (0-35) 01/08/24 07:55
Alkaline Phosphatase 81 U/L (38-126) 01/08/24 07:55
Lipase 32 U/L (23-300) 01/07/24 17:29
Vital Signs and I&O:
Vital Signs
Temp Pulse Resp BP Pulse Ox
98.6 F 92 14 90/52 97
01/08/24 07:30 01/08/24 07:30 01/08/24 07:30 01/08/24 07:30 01/08/24 07:55
I&O
01/07/24 01/08/24 01/09/24
06:59 06:59 06:59
Intake Total 240 / 240 1959
Balance 240 / 240 1959
Physical Exam
Physical Exam
HEENT: Anicteric
Cardiology: S1 and S2 (RRR)
Pulmonary: Clear
GI: Distended, Tender (diffusely tender) and Other (soft bowel sounds)
Neuro: Non Focal
Pale appearing
--- NOTE | 2024-01-08 11:58 | CM ---
Chart reviewed and plan is to home when stable, no needs.
Plan; Home when stable.
[2024-01-08] MEDS: DILAUDID 0.5 MG IV (12:59)
[2024-01-08 14:05] VITALS: BP 87/57
--- NOTE | 2024-01-08 14:20 | W.PN.HOSP.TC ---
Today's Communication/Plan
-
All discussed with the patient and the at the bedside
Discussed with the nurse
Assessment / Plan
Assessment / Plan
Physical exam:
General: Awake, alert and oriented x3, not in distress and holds appropriate conversation.
HEENT: No active discharge, ecchymosis or bruising, moist lips, tongue and mucous membrane.
Eyes: No discharge or red conjunctiva, no nystagmus, pupils are reactive and equal
Neck:Supple, no JVD no bruit no goiter.
Respiratory: Normal AP contour and diameter, normal chest wall movement, normal respiratory effort, no respiratory distress,
Lungs: Good air entry bilaterally, no wheezing or rhonchi, no rales or crackles
Heart: S1, S2 regular, normal rate, no added sound.
Gastrointestinal: Positive bowel sounds, soft, distended and tympanic, generalized tenderness with simple palpation with guarding but no rigidity or organomegaly
Extremities: No pitting edema, good peripheral pulses, good range of motion
Skin: Warm and dry, no ulceration, normal color.
63-year-old female with history of hypertension, been taking Ozempic lately presented to the hospital with abdominal pain with diarrhea, CT scan showed colitis, infectious versus other causes need to be considered, doubt or ischemic colitis but need
to be considered.
Generalized abdominal pain: Possibly related to colitis, infectious versus other cause like inflammatory or ischemic need to be considered.
Stool workup so far negative
-Multiple white BC in the stool
Look like GI started on a clear liquid diet
Continue IV fluid to 125 mL/h specially leukocytosis
Lactic acid check was 2.4 repeat improved and this morning was 0.8
Lipase has been
Continue Zosyn
Pain and nausea medication.
Stool for C. difficile and cultures been negative so far.
Schedule GI if not improving will consider colorectal surgery eval.
Acute kidney injury: Multifactorial including dehydration, hypotension, NSAID intake.
Worsening, Initially was 2.1 and then 2.6 yesterday and back to 2 today
Repeat is pending if continued to get worse we will consult nephrology as discussed with the patient
Continue IV
Hyponatremia: Likely secondary to recurrent diarrhea and poor oral intake, present on admission
Stable 132 yesterday and today
Recheck
IV fluid
Hyperkalemia: Potassium on admission was 5.3
Improved
Recheck
Hypertension:
Pressure on the low side, hold amlodipine
Crease IV fluid
Continue to monitor
Hemoglobin dropped, on admission was 13.8 and today is 11.2 baseline is around 11-12. Continue to drop from 9.3 today so, no evidence of overt bleeding
Hold anticoagulation and started on SCD
Continue to monitor
May need workup for anemia as an outpatient
Migraine: Continue lamotrigine.
Anxiety: Stable continue lorazepam at bedtime.
Anticipated Discharge: > 48 hours
Subjective/Interval History
-
Date of Service: January 08, 2024
Seen and examined earlier, awake and alert, feels some improvement denies abdominal pain today but is internal grinder tender, no more diarrhea, Denies any rectal bleeding or any nausea or vomiting or fever or chill, no urinary symptoms, no chest pain or
shortness of breath.
Her at the bedside.
Objective Data
-
Labs:
Laboratory Results
01/08/24
07:55
WBC 7.0
Hgb 9.3 L
Hct 27.2 L
Plt Count 193
Sodium 132 L
Potassium 5.0
Chloride 107
Carbon Dioxide 17 L
BUN 43 H
Creatinine 2.0 H
Glucose 57 L
Calcium 7.8 L
Total Bilirubin 0.5
AST 31
ALT 14
Alkaline Phosphatase 81
Vital Signs:
Vital Signs
Temp Pulse Resp BP Pulse Ox
98.6 F 87 16 87/57 99
01/08/24 07:30 01/08/24 14:05 01/08/24 14:05 01/08/24 14:05 01/08/24 14:05
I&O
01/07/24 01/08/24 01/09/24
07:59 07:59 07:59
Intake Total 240 / 240 1959
Balance 240 / 240 1959
Review of Systems
-
All other systems: Reviewed and negative
[2024-01-08 15:41] VITALS: BP 97/57
[2024-01-08] MEDS: NON-FORMULARY ITEM 10 MG PO (21:01)
[2024-01-08] MEDS: ZANAFLEX 16 MG PO (21:02)
[2024-01-08] MEDS: ATIVAN 1 MG PO (21:02)
[2024-01-08] MEDS: RISPERDAL 4 MG PO (21:02)
[2024-01-08] MEDS: AMBIEN 5 MG PO (21:02)
[2024-01-08 23:03] VITALS: BP 109/80
[2024-01-09 01:42] VITALS: BP 107/77
--- NOTE | 2024-01-09 01:42 | PTCARENOTE ---
Patient wandering in hallway with confused conversation and slurred speech. Patient assisted back into bed, vital signs taken and as followed; Temp 98.4 orally HR 78 BP 107/77 respirations 18 O2 saturation 94%. BG resulted at 118. NIHSS performed,
score of 0. BAR BACK made aware - orders for telemetry placed, labs sent, and frequency of PRN Dilaudid changed. Bed alarm placed for safety.
~310 Patient shouting in room, upon assessment patient resting in bed but confused on whereabouts. Provided reorientation, patient denied recollection of wandering the hallways earlier but now able to answer orientation questions appropriately.
Requested more pain medication at this time.
[2024-01-09 01:53] LABS: Glucose - Point of Care 118 mg/dl (70-99)
[2024-01-09 03:09] LABS: Hematocrit 23.3 % (37.0-47.0); Hemoglobin 8.1 g/dL (12.0-16.0); Mean Corp Hgb Conc. 34.8 g/dL (33.0-37.0); Mean Corpuscular Hgb 32.1 pg (27.0-31.0); Mean Corpuscular Volume 92.5 fL (81.0-99.0); Mean Platelet Volume 9.6 fL (7.4-10.4); Platelet Count 237 10^3/uL (130-400); Red Blood Cell Count 2.52 10^6/uL (4.20-5.40); Red Cell Dist. Width 13.6 % (11.5-14.5); White Blood Cell Count 8.8 10^3/uL (4.8-10.8)
[2024-01-09 03:12] LABS: Blood Urea Nitrogen 34 mg/dl (7-17); Carbon Dioxide 16 mmol/L (22-30); Chloride 108 mmol/L (98-107); Estimated Creatinine Clearance 33 ml/min; Glucose 107 mg/dl (70-99); Magnesium 3.2 mg/dl (1.6-2.3); Potassium 4.4 mmol/L (3.5-5.1); Sodium 136 mmol/L (135-145); eGFR 36.47
[2024-01-09 05:04] LABS: Absolute Neutrophils -Man Diff 7.2 10^3/uL (1.4-6.5); Atypical Lymphocytes 1 %; Band Neutrophils 13 % (0-3); Lymphocytes 10 % (20-51); Metamyelocytes 1 % (-); Monocytes 6 % (2-9); Segmented Neutrophils 69 % (42-75)
[2024-01-09 05:05] LABS: Ovalocytes 1+; Total Cells Counted 100; Toxic Granulation 1+
[2024-01-09 05:06] LABS: Polychromasia Occasional; Tear Drop Red Blood Cells Occasional
[2024-01-09 05:07] LABS: Target Cells Occasional
[2024-01-09] MEDS: ZOSYN 50 IV ×4 (05:32→23:30)
[2024-01-09 06:39] LABS: Normal RBC Morphology No; Platelets Checked Yes
[2024-01-09 07:00] VITALS: BP 107/66
[2024-01-09] MEDS: DILAUDID 1 MG IV ×5 (07:57→22:22)
[2024-01-09] MEDS: EFFEXOR XR 225 MG PO (07:58)
[2024-01-09] MEDS: DETROL LA 4 MG PO (07:58)
[2024-01-09] MEDS: RISPERDAL 2 MG PO (07:58)
[2024-01-09] MEDS: LAMICTAL 100 MG PO (08:00)
[2024-01-09] MEDS: LAMICTAL 150 MG PO (08:00)
[2024-01-09 11:13] VITALS: BP 115/63
--- NOTE | 2024-01-09 11:27 | CM ---
Chart reviewed and plan is to home with spouse when stable.
Plan; Home with spouse when stable.
--- NOTE | 2024-01-09 11:34 | W.PN.GI.CBS2 ---
Addendum entered and electronically signed by CALLIE Babb 01/09/24 16:55:
abd film with ileus small and large bowel, developing obstruction not excluded decrease to sips clears and monitor series exams.
Addendum entered and electronically signed by Anupama Raphael MD 01/09/24 12:29:
I saw and examined the patient.
The OWNER SPA DIRECTOR or PA's note was reviewed and I agree with the note.
Comment:
Pt with some pain but overall stated to me she was better. noted that she had change in MS last night
abd: soft, tender
impression:
colitis with negative stool studies
abd pain with lactate normalized with improving renal function
continue antibiotics
monitor mental status and abd exam
consider surgery if worsens
Original Note:
Today's Communication / Plan
-
-Etiology of pancolitis unclear. Possibly infectious v ischemic v inflammatory v other. She has been hypotensive here, may favor ischemic nature v infection (many WBC seen in stool).
some confusion overnight ? medication related with multiple meds at night including Dilaudid
still with increased pain, distention and some high pitched Bowel sound
will check follow up obstruction series
repeat CBC, chemistry pending
-stool studies neg, Many WBC's
-clears -- with distention would not advance further
-IV Abx with Zosyn
-Monitor for fevers
-Ensure adequate perfusion. Monitor BP closely
-Continue with serial abdominal exams
-Consider CRS evaluation if worsening status
-Monitor renal function, defer to hospitalist-- slow improvement
-Further management pending clinical course
reviewed with nursing staff
Assessment / Plan
-
The pt is a pleasant 63yo female with a PMH significant for HTN, anxiety, depression, prior gastric lap band surgery, hysterectomy, renal stones, migraines with new Emgality, wt loss with recent Ozempic use, who presented to the ER with complaints
of abdominal pain and diarrhea with blood. CT imaging with oral contrast only showed findings consistent with pancolitis and noted distended GB without stones. Labs stable with some drop of hbg 13.8 to 11.2 after admission and Na 130, K 5.3, creat
2.1, calcium 10.8, bili 0.7, AST 37, ALT 23, alk phos 131. She had subsequent tachycardia and hypotension on admission. Lactic acid elevated initially but normalized. She was placed on IV Zosyn and IV fluids and made NPO for GI evaluation. Prior
colonoscopy [place] [address] Kan which was normal aside from hemorrhoids. She had recent travel to [place] December 07 til December 21 but without symptoms after return. On admission she admitted to frequent NSAID use for migraines.
Problem list:
-abdominal pain/diarrhea/rectal bleeding with pancolitis
-tachycardia/hypotension on admission
-ecoli UTI
-confusion
-TORY on admission
-hyponatremia
-recent travel to [place] December 07- December 21
-mild acidosis
-lactic acidosis, resolved
Other pertinent medical hx:
-recent wt loss with Ozempic use
-migraine with new Emgality 4month ago and frequent NSAID use
-hx renal stones
-gastric lap band
-hysterectomy
-HTN
-anxiety/depression
Recommendations:
-Etiology of pancolitis unclear. Possibly infectious v ischemic v inflammatory v other. She has been hypotensive here, may favor ischemic nature v infection (many WBC seen in stool).
some confusion overnight ? medication related with multiple meds at night including Dilaudid
still with increased pain, distention and some high pitched Bowel sound
will check follow up obstruction series
repeat CBC, chemistry pending
-stool studies neg, Many WBC's
-clears -- with distention would not advance further
-IV Abx with Zosyn
-Monitor for fevers
-Ensure adequate perfusion. Monitor BP closely
-Continue with serial abdominal exams
-Consider CRS evaluation if worsening status
-Monitor renal function, defer to hospitalist-- slow improvement
-Further management pending clinical course
reviewed with nursing staff
Subjective
Subjective
Date of Service: January 09, 2024
on clear diet, 01/07 brown loose stool, still with abdominal pain was 10/10 on admission down to 8/10 yesterday and now 9/10, some confusion overnight
Objective
Data Reviewed
Laboratory Data:
Laboratory Results
Magnesium 3.2 mg/dl (1.6-2.3) H 01/09/24 02:45
Total Bilirubin 0.5 mg/dl (0.2-1.3) 01/08/24 07:55
AST 31 U/L (14-36) 01/08/24 07:55
ALT 14 U/L (0-35) 01/08/24 07:55
Alkaline Phosphatase 81 U/L (38-126) 01/08/24 07:55
Lipase 32 U/L (23-300) 01/07/24 17:29
Vital Signs and I&O:
Vital Signs
Temp Pulse Resp BP Pulse Ox
98.2 F 90 18 115/63 95
01/09/24 11:13 01/09/24 11:13 01/09/24 11:13 01/09/24 11:13 01/09/24 11:13
I&O
01/08/24 01/09/24 01/10/24
06:59 06:59 06:59
Intake Total 1959 720 / 720
Balance 1959 720 / 720
Physical Exam
Physical Exam
HEENT: Anicteric and Moist mucous membranes
Cardiology: Normal Sinus Rhythm
Pulmonary: Clear
GI: Soft, Distended and Tender (diffuse with some high pitched Bowel sounds and guarding on exam )
Extremities: No Edema
Neuro: Non Focal
[2024-01-09] MEDS: NSS IV (11:36)
--- NOTE | 2024-01-09 12:24 | W.PN.HOSP.TC ---
Today's Communication/Plan
-
All discussed with the patient and her at the bedside
Discussed with the nurse
Assessment / Plan
Assessment / Plan
Physical exam:
General: Awake, alert and oriented x3, not in distress and holds appropriate conversation.
HEENT: No active discharge, ecchymosis or bruising, moist lips, tongue and mucous membrane.
Eyes: No discharge or red conjunctiva, no nystagmus, pupils are reactive and equal
Neck:Supple, no JVD no bruit no goiter.
Respiratory: Normal AP contour and diameter, normal chest wall movement, normal respiratory effort, no respiratory distress,
Lungs: Good air entry bilaterally, no wheezing or rhonchi, no rales or crackles
Heart: S1, S2 regular, normal rate, no added sound.
Gastrointestinal: Positive bowel sounds, soft, distended and tympanic, generalized tenderness with simple palpation but better than before, with guarding but no rigidity or organomegaly
Extremities: No pitting edema, good peripheral pulses, good range of motion
Skin: Warm and dry, no ulceration, normal color.
63-year-old female with history of hypertension, been taking Ozempic lately presented to the hospital with abdominal pain with diarrhea, CT scan showed colitis, infectious versus other causes need to be considered, doubt or ischemic colitis but need
to be considered.
Generalized abdominal pain: Possibly related to colitis, infectious versus other cause like inflammatory or ischemic need to be considered.
Stool workup so far negative
-Multiple wBC in the stool
Tolerating clear liquid diet, advance as tolerated
Decrease IV fluids to 80 mL/h for next 24 hours
Lactic acid check was 2.4 repeat improved and this morning was 0.8
Lipase is normal
Obstructive series order by GI, as abdomin still distended and tympanic
Continue Zosyn
Pain and nausea medication.
Stool for C. difficile and cultures been negative so far.
if not improving will consider colorectal surgery eval.
Acute kidney injury: Multifactorial including dehydration, hypotension, NSAID intake.
Worsening, Initially was 2.1 and then 2.6 yesterday and back to 2 yesterday and today is 1.6
Repeat is pending if continued to get worse we will consult nephrology as discussed with the patient
Continue IV fluid
Hyponatremia: Likely secondary to recurrent diarrhea and poor oral intake, present on admission
Stable 132 yesterday and today
Recheck
IV fluid
Hyperkalemia: Potassium on admission was 5.3
Improved
Recheck
Hypertension:
Pressure on the low side, hold amlodipine
Crease IV fluid
Continue to monitor
Hemoglobin dropped, on admission was 13.8 and today is 11.2 baseline is around 11-12. Continue to drop from 9.3 yesterday then today is 8.1 and been rechecked, no evidence of overt bleeding
Hold anticoagulation and SCD
Continue to monitor
May need workup for anemia as an outpatient
Diet and abdominal bleed,
Migraine: Continue lamotrigine.
Anxiety: Stable continue lorazepam at bedtime.
Still symptomatic and not ready for discharge
Anticipated Discharge: > 48 hours
Subjective/Interval History
-
Date of Service: January 09, 2024
Seen and examined earlier, at the bedside, she is awake, alert and oriented x 3, feels better and abdominal pain especially when she is at rest only 3 producible or she started walking around on her palpation, passes gas without any nausea
or vomiting, did not move her bowel yet today.
Last night had some confusion episode like she had diarrhea and have some sleepwalking, she takes multiple psych medication also given Dilaudid prior to the event.
No bleeding event, denied dysuria or hematuria fresh rectal bleeding send hemoglobin is trending down.
Pression renal function is improving
Objective Data
-
Labs:
Laboratory Results
01/09/24 01/09/24
02:45 12:00
WBC 8.8 Pending
Hgb 8.1 L Pending
Hct 23.3 L Pending
Plt Count 237 D Pending
Sodium 136 Pending
Potassium 4.4 Pending
Chloride 108 H Pending
Carbon Dioxide 16 L Pending
BUN 34 H Pending
Creatinine 1.6 H Pending
Glucose 107 H Pending
Calcium 8.0 L Pending
Vital Signs:
Vital Signs
Temp Pulse Resp BP Pulse Ox
98.2 F 90 18 115/63 96
01/09/24 11:13 01/09/24 11:13 01/09/24 11:13 01/09/24 11:13 01/09/24 11:31
I&O
01/08/24 01/09/24 01/10/24
07:59 07:59 07:59
Intake Total 1959 720 / 720
Balance 1959 720 / 720
Review of Systems
-
All other systems: Reviewed and negative
[2024-01-09 13:28] LABS: Hematocrit 26.7 % (37.0-47.0); Hemoglobin 9.3 g/dL (12.0-16.0); Mean Corp Hgb Conc. 34.8 g/dL (33.0-37.0); Mean Corpuscular Hgb 32.7 pg (27.0-31.0); Mean Platelet Volume 9.7 fL (7.4-10.4); Platelet Count 239 10^3/uL (130-400); Red Blood Cell Count 2.84 10^6/uL (4.20-5.40); Red Cell Dist. Width 13.6 % (11.5-14.5); White Blood Cell Count 9.8 10^3/uL (4.8-10.8)
[2024-01-09 14:05] LABS: Blood Urea Nitrogen 28 mg/dl (7-17); Calcium 8.4 mg/dl (8.4-10.2); Carbon Dioxide 17 mmol/L (22-30); Chloride 107 mmol/L (98-107); Estimated Creatinine Clearance 38 ml/min; Glucose 110 mg/dl (70-99); Potassium 4.1 mmol/L (3.5-5.1); Sodium 135 mmol/L (135-145)
[2024-01-09 15:37] VITALS: BP 141/77
[2024-01-09] MEDS: NSS 1000 IV (15:38)
--- NOTE | 2024-01-09 17:30 | PTCARENOTE ---
1715 Pt transferred from room 433 via bed. Pt alert and oriented x 3. IV fluids infusing. Noted orders, continue to monitor pt.
[2024-01-09 19:00] VITALS: BP 157/91
[2024-01-09] MEDS: NON-FORMULARY ITEM 10 MG PO (20:57)
[2024-01-09] MEDS: ATIVAN 1 MG PO (20:57)
[2024-01-09] MEDS: RISPERDAL 4 MG PO (22:25)
[2024-01-09 23:00] VITALS: BP 153/92
[2024-01-09] MEDS: AMBIEN 5 MG PO (23:28)
[2024-01-09] MEDS: ZANAFLEX 16 MG PO (23:28)
[2024-01-10 03:00] VITALS: BP 115/71
[2024-01-10] MEDS: ZOSYN 50 IV ×3 (05:08→17:13)
[2024-01-10] MEDS: NSS 1000 IV (05:12)
[2024-01-10 07:00] VITALS: BP 119/68
[2024-01-10 07:39] LABS: Blood Urea Nitrogen 17 mg/dl (7-17); Calcium 8.4 mg/dl (8.4-10.2); Carbon Dioxide 23 mmol/L (22-30); Chloride 107 mmol/L (98-107); Estimated Creatinine Clearance 44 ml/min; Glucose 124 mg/dl (70-99); Potassium 4.2 mmol/L (3.5-5.1); Sodium 138 mmol/L (135-145)
[2024-01-10] MEDS: DILAUDID 1 MG IV ×5 (07:59→20:19)
[2024-01-10 08:00] LABS: Hematocrit 25.5 % (37.0-47.0); Hemoglobin 8.8 g/dL (12.0-16.0); Mean Corp Hgb Conc. 34.5 g/dL (33.0-37.0); Mean Corpuscular Hgb 32.1 pg (27.0-31.0); Mean Corpuscular Volume 93.1 fL (81.0-99.0); Mean Platelet Volume 9.4 fL (7.4-10.4); Platelet Count 246 10^3/uL (130-400); Red Blood Cell Count 2.74 10^6/uL (4.20-5.40); Red Cell Dist. Width 14.1 % (11.5-14.5); White Blood Cell Count 9.3 10^3/uL (4.8-10.8)
[2024-01-10 09:23] LABS: % Basophils 0.9 % (0-2); % Eosinophils 1.4 % (0-6); % Immature Granulocytes 1.4 % (0-0.5); % Monocytes 12.5 % (1.7-9.3); % Neutrophils 68.8 % (42.2-75.2); Absolute Basophils 0.1 10^3/uL (0-0.2); Absolute Eosinophils 0.1 10^3/uL (0-0.7); Absolute Immature Granulocytes 0.1 10^3/uL (0-0.05); Absolute Lymphocytes 1.4 10^3/uL (1.2-3.4); Absolute Monocytes 1.2 10^3/uL (0.1-0.6); Absolute Neutrophils 6.4 10^3/uL (1.4-6.5); Nucleated Red Blood Cells % 0.2 %
[2024-01-10] MEDS: EFFEXOR XR 225 MG PO (10:42)
[2024-01-10] MEDS: DETROL LA 4 MG PO (10:42)
[2024-01-10] MEDS: LAMICTAL 100 MG PO (10:43)
[2024-01-10] MEDS: RISPERDAL 2 MG PO (10:43)
[2024-01-10] MEDS: LAMICTAL 150 MG PO (10:43)
[2024-01-10 11:00] VITALS: BP 119/69
--- NOTE | 2024-01-10 14:14 | W.PN.HOSP.TC ---
Addendum entered and electronically signed by Tavares Rothman MD 01/10/24 16:17:
Discussed with the surgery recommends a repeat CT abdomen pelvis better with the contrast to understand the process better.
Patient came in with TORY but creatinine recovered well ; improved 1.2.
Feel benefit of CT with IV contrast more than risk. Will add HCO3 fluid pre and post CT study.
Original Note:
Today's Communication/Plan
-
Repeat abdominal x-ray .
Consult surgery
Assessment / Plan
Assessment / Plan
63-year-old female with history of hypertension, been taking Ozempic lately presented to the hospital with abdominal pain with diarrhea, CT scan showed colitis, infectious versus other causes need to be considered, doubt or ischemic colitis but need
to be considered.
Generalized abdominal pain: related to colitis
Acute pancolitis- infectious versus other cause like inflammatory or ischemic need to be considered.
Stool workup so far negative
-Multiple WBC in the stool
Lactic acid check was 2.4 repeat improved and was 0.8
Lipase is normal
Continue Zosyn
Pain and nausea medication.
Remains symptomatic with abdominal pain and distention but no diarrhea.
GI following.
Abdominal distension -suspected sec to ileus . Remains distended. Suspect possible colitis . Doubt obstruction -Will consult surgery. Rpt abdo xray.
Acute kidney injury: Multifactorial including dehydration, hypotension, NSAID intake.
Worsening, Initially was 2.1 and then 2.6 yesterday and back to 2 yesterday and today is 1.2
Continue IV fluid
Hyponatremia: Likely secondary to recurrent diarrhea and poor oral intake, present on admission
Normalized
Hyperkalemia: Potassium on admission was 5.3
Resolved.
Recheck
Hypertension:
Pressure on the low side, hold amlodipine
Continue to monitor
Hemoglobin dropped, on admission was 13.8 and today is 11.2 baseline is around 11-12. Continue to drop from 9.3 yesterday then today is 8.8 , no evidence of overt bleeding
Hold anticoagulation and SCD
Continue to monitor
Migraine: Continue lamotrigine.
Anxiety: Stable continue lorazepam at bedtime.
DW at bedside.
DW RN.
Total time spent on today's encounter was 52 minutes which included time spent in counseling the patient/family regarding diagnosis and treatment plan as listed above, goals of care, and symptom management. Case was discussed with nursing staff,
specialists . All labs and imaging personally reviewed by me. Remainder the time spent in detailed review of previous records, lab data, imaging, and other medical provider documentation.
Anticipated Discharge: > 48 hours
Subjective/Interval History
-
Date of Service: January 10, 2024
Worsening abdominal pain.
Abdomen remains distended.
Passing gas but no bowel movements.
No appetite.
Objective Data
-
Labs:
Laboratory Results
01/10/24
06:34
WBC 9.3
Hgb 8.8 L
Hct 25.5 L
Plt Count 246
Sodium 138
Potassium 4.2
Chloride 107
Carbon Dioxide 23
BUN 17
Creatinine 1.2 H
Glucose 124 H
Calcium 8.4
Vital Signs:
Vital Signs
Temp Pulse Resp BP Pulse Ox
97.8 F 87 18 119/69 97
01/10/24 11:00 01/10/24 11:00 01/10/24 11:00 01/10/24 11:00 01/10/24 07:00
I&O
01/09/24 01/10/24 01/11/24
06:59 06:59 06:59
Intake Total 720 / 720 1450 / 1450 900 / 900
Balance 720 / 720 1450 / 1450 900 / 900
Review of Systems
-
Constitutional: Denies Fever
EENT: Denies Sore Throat
Respiratory: Denies Trouble Breathing
Cardiac: Denies Chest Pain
Neuro: Denies Dizzy
Physical Exam
-
General: No Apparent Distress
HEENT: Moist Mucous Membranes
Cardiac: Regular Rhythm and S1/S2
GI: Soft, Tender (all quadrants ; no guarding) and Distended; Negative Normal Bowel Sounds (hypoactive)
Neuro: AO x 3
Psych: Calm
Data Reviewed
-
Labs: Labs Reviewed by me
--- NOTE | 2024-01-10 15:22 | W.PN.GI.CBS2 ---
Today's Communication / Plan
-
ruq u/s
Assessment / Plan
-
The pt is a pleasant 63yo female with a PMH significant for HTN, anxiety, depression, prior gastric lap band surgery, hysterectomy, renal stones, migraines with new Emgality, wt loss with recent Ozempic use, who presented to the ER with complaints
of abdominal pain and diarrhea with blood. CT imaging with oral contrast only showed findings consistent with pancolitis and noted distended GB without stones. Labs stable with some drop of hbg 13.8 to 11.2 after admission and Na 130, K 5.3, creat
2.1, calcium 10.8, bili 0.7, AST 37, ALT 23, alk phos 131. She had subsequent tachycardia and hypotension on admission. Lactic acid elevated initially but normalized. She was placed on IV Zosyn and IV fluids and made NPO for GI evaluation. Prior
colonoscopy [place] [address] Kan which was normal aside from hemorrhoids. She had recent travel to [place] December 07 til December 21 but without symptoms after return. On admission she admitted to frequent NSAID use for migraines.
Problem list:
-abdominal pain/diarrhea/rectal bleeding with pancolitis
-tachycardia/hypotension on admission
-ecoli UTI
-confusion
-TORY on admission
-hyponatremia
-recent travel to [place] December 07- December 21
-mild acidosis
-lactic acidosis, resolved
Other pertinent medical hx:
-recent wt loss with Ozempic use
-migraine with new Emgality 4month ago and frequent NSAID use
-hx renal stones
-gastric lap band
-hysterectomy
-HTN
-anxiety/depression
Recommendations:
-continue antibiotics
- NPO
- source of ileus both sb/colon unclear but would get ruq u/s as gallbladder distended on initial ct
- renal function improving
- encouraged the patient to ambulate
Subjective
Subjective
Date of Service: January 10, 2024
Pt with improvement in abd pain. still distended. no vomiting. has been npo because of diffuse ileus
Objective
Data Reviewed
Laboratory Data:
Laboratory Results
01/10/24 06:34
01/10/24 06:34
Laboratory Results
Magnesium 3.2 mg/dl (1.6-2.3) H 01/09/24 02:45
Total Bilirubin 0.5 mg/dl (0.2-1.3) 01/08/24 07:55
AST 31 U/L (14-36) 01/08/24 07:55
ALT 14 U/L (0-35) 01/08/24 07:55
Alkaline Phosphatase 81 U/L (38-126) 01/08/24 07:55
Lipase 32 U/L (23-300) 01/07/24 17:29
Vital Signs and I&O:
Vital Signs
Temp Pulse Resp BP Pulse Ox
97.8 F 87 18 119/69 94
01/10/24 11:00 01/10/24 11:00 01/10/24 11:00 01/10/24 11:00 01/10/24 09:30
I&O
01/09/24 01/10/24 01/11/24
06:59 06:59 06:59
Intake Total 720 / 720 1450 / 1450 900 / 900
Balance 720 / 720 1450 / 1450 900 / 900
Physical Exam
Physical Exam
GI: Distended, Tender (mild tenderness) and Other (decreased bowel sounds, )
--- NOTE | 2024-01-10 15:26 | CM ---
CM reviewed chart, per chart, plan for repeat abdominal x-ray, surgery consult. CM will continue to follow for all discharge planning needs.
Plan; home no needs, when medically stable.
--- NOTE | 2024-01-10 16:01 | CON.GS ---
Addendum entered and electronically signed by Chin Kathleen MD 01/10/24 19:08:
I saw and examined the patient independently.
The Insulation Foreman's note was reviewed and I agree with the note, assessment and plan except where noted below.
Comment: This is a 63-year-old female with a history of a vaginal hysterectomy, lap band (deflated, but still in place) procedure with some weight recidivism now on Ozempic for about 6 weeks with about 40 pound weight loss, recent travel from [place]
who presented 4 days ago with severe abdominal pain, bloating and bloody diarrhea. Initial scans concerning for small and large bowel ileus as well as pancolitis. Stool studies negative positive UTI, TROY improved still significant abdominal pain
and significantly tender to palpation particularly in the right upper quadrant but fairly diffusely as well.
Unclear etiology of her abdominal pain. Ischemic versus infectious colitis versus ileus secondary to other infection
Recommend a CT abdomen pelvis with p.o. and IV contrast.
N.p.o., IV fluids
Continue antibiotics
Blood cultures
Will continue to follow with serial abdominal exams
Original Note:
Medical History
-
Chief Complaint: abdominal pain
History of Present Illness:
63 yo female with a h/o migraines, hysterectomy, lap band with initial weight loss then regain of 40lbs (band currently deflated) who was on Ozempic for about 6 weeks with weight loss of [id number], now off this medication for the past 5 weeks with
recent travel to [place] with return 12/22/23 who presented 4 days ago after she developed severe abdominal pain with bloating and bloody diarrhea. She notes pain was 10/10 at that time which has lessened to a 9/10 but is still quite severe. She has
been passing some flatus and has had intermittent diarrhea with blood noted. She denies nausea or vomiting. She felt chills at home but has not had a fever. The abdomen is quite tender to all 4 quadrants on exam with distention present. The right
side is slightly more tender than the left. She notes no improvement in bloating/distention since presentation.
Past Medical History
Past Medical History: HTN, Psychiatric (anxiety/depression) and Other (migraines)
Past Surgical History: Bariatric (Lap band 15 years ago, subsequently deflated), Gynecological (Hysterectomy BSO ), Urological (ureteroscopy for stones) and Other (rhizotomy)
Social History
Tobacco: Non-Smoker
Alcohol: None
Drug: None
Personal:
Living: With Family
Family History
Family History: Reviewed & Not Pertinent
Allergies / Home Medications
Allergy/AdvReac Type Severity Reaction Status Date / Time
CAIO Inhibitors Allergy Anaphylaxis Verified 01/06/24 19:14
latex Allergy WELTS Verified 01/06/24 19:14
�Medication �Instructions �Recorded �Confirmed �Type
risperidone 1 mg tablet 2 mg PO DAILY Mental Health/Anxiety 06/28/14 01/06/24 History
tizanidine 4 mg tablet 16 mg PO HS Muscle Spasms 06/28/14 01/06/24 History
amlodipine 5 mg tablet 5 mg PO DAILY Blood Pressure 10/06/17 01/06/24 History
diphenhydramine HCl 25 mg capsule 50 mg PO HS anti-histamine 10/06/17 01/06/24 History
(Banophen)
mirabegron 50 mg tablet,extended 50 mg PO DAILY Urinary Issue 10/06/17 01/06/24 History
release 24 hr (Myrbetriq)
lamotrigine 100 mg tablet 100 mg PO DAILY Seizures 10/27/19 01/06/24 History
lamotrigine 150 mg tablet 150 mg PO DAILY Seizures 10/27/19 01/06/24 History
(Lamictal)
lorazepam 0.5 mg tablet 1 mg PO HS anxiety 10/27/19 01/06/24 History
meperidine 100 mg tablet (Demerol) 50 mg PO Q6HPRN PRN migraines 10/27/19 01/06/24 History
metaxalone 800 mg tablet (Skelaxin) 800 mg PO TIDPRN PRN muscle pain 10/27/19 01/06/24 History
risperidone 2 mg tablet 4 mg PO HS Mental Health/Anxiety 10/27/19 01/06/24 History
venlafaxine 225 mg tablet,extended 225 mg PO DAILY Depression 10/27/19 01/06/24 History
release 24 hr
zaleplon 10 mg capsule 10 mg PO HS Sleep 10/27/19 01/06/24 History
zolpidem 5 mg tablet 5 mg PO HS Sleep 10/27/19 01/06/24 History
Emgality Syringe 1 dose IM MONTHLY MIGRAINE 01/06/24 01/06/24 History
hydrocodone 5 mg-acetaminophen 325 1 tab PO Q4HPRN PRN pain 01/06/24 01/06/24 History
mg tablet
Review of Systems
-
History Source: Patient
All other systems: Negative unless noted
A 10 point review of systems was completed, and was negative except as per HPI.
Physical Exam
Vital Signs
Temp Pulse Resp BP Pulse Ox
99.5 F 87 18 119/69 94
01/10/24 15:00 01/10/24 11:00 01/10/24 11:00 01/10/24 11:00 01/10/24 09:30
Body Mass Index (BMI) 24.0
Lab Results
01/10/24 06:34
01/10/24 06:34
WBC 9.3 10^3/uL (4.8-10.8) 01/10/24 06:34
Hgb 8.8 g/dL (12.0-16.0) L 01/10/24 06:34
Hct 25.5 % (37.0-47.0) L 01/10/24 06:34
Plt Count 246 10^3/uL (130-400) 01/10/24 06:34
Abs Immat Gran (auto) 0.1 10^3/uL (0-0.05) H 01/10/24 06:34
Neutrophils % 68.8 % (42.2-75.2) 01/10/24 06:34
Physical Exam
General: Well Developed and Well Nourished
HEENT: Moist Mucous Membranes
Respiratory: Non Labored Respirations
GI: Soft, Tender (throughout r>L), Distended and Other (involuntary guarding)
Skin: Warm and Dry
Neuro: Awake, Alert and AO x 3
Psych: Calm
Data Reviewed
-
Radiology: Image Personally Visualized and interpreted, Report Reviewed by me, Discussed with Physician and Discussed with Patient
CT Scan: Image Personally Visualized and interpreted, Report Reviewed by me, Discussed with Physician and Discussed with Patient
Labs: Labs Reviewed by me, Discussed with Physician and Discussed with Patient
Old Records: Reviewed
Assessment / Plan
-
63 yo female with a h/o migraines, hysterectomy, lap band with initial weight loss then regain of 40lbs. was on Ozempic for about 6 weeks with loss of 40lbs, now off this medication for the past 5 weeks who presented 4 days ago after she developed
severe abdominal pain with bloating and bloody diarrhea. Pain and distention persist. Initial CT with oral contrast only demonstrating pancolitis of unclear etiology with f/u XR today demonstrating small and large bowel distention. Not obstructed as
she has had +flatus and some diarrhea, ?reactive ileus.
Stool studies thus far negative. +Ecoli UTI noted and on antibiotics. No leukocytosis or fevers.
TORY present on admission with improvement with IVF hydration. Currently NPO.
AFVSS.
--Would check CT with IV and PO contrast
--Continue NPO until improvement
--Trend labs/exams
--Check blood cultures
--Gastroenterology following as well for management
[2024-01-10] MEDS: OMNIPAQUE 50 ML PO (17:08)
[2024-01-10] MEDS: SODIUM BICARBONATE 1150 MEQ IV (17:54)
[2024-01-10 19:00] VITALS: BP 156/93
[2024-01-10] MEDS: ATIVAN 1 MG PO (20:17)
[2024-01-10] MEDS: NON-FORMULARY ITEM 10 MG PO (22:28)
[2024-01-10] MEDS: RISPERDAL 4 MG PO (22:28)
[2024-01-10 23:00] VITALS: BP 164/91
[2024-01-11] MEDS: ZANAFLEX 16 MG PO ×2 (00:07→22:20)
[2024-01-11] MEDS: AMBIEN 5 MG PO ×2 (00:07→22:21)
[2024-01-11] MEDS: ZOSYN 50 IV ×5 (00:08→23:58)
[2024-01-11] MEDS: NSS 1000 IV ×2 (01:44→15:42)
[2024-01-11 03:00] VITALS: BP 148/85
[2024-01-11] MEDS: DILAUDID 1 MG IV ×6 (03:41→21:10)
[2024-01-11] MEDS: SODIUM BICARBONATE IV (07:08)
[2024-01-11 07:15] VITALS: BP 133/76
[2024-01-11] MEDS: DETROL LA 4 MG PO (08:21)
[2024-01-11] MEDS: EFFEXOR XR 225 MG PO (08:21)
[2024-01-11] MEDS: LAMICTAL 100 MG PO (08:22)
[2024-01-11] MEDS: LAMICTAL 150 MG PO (08:22)
[2024-01-11] MEDS: RISPERDAL 2 MG PO (08:23)
[2024-01-11 10:30] LABS: Hematocrit 24.8 % (37.0-47.0); Hemoglobin 8.7 g/dL (12.0-16.0); Mean Corp Hgb Conc. 35.1 g/dL (33.0-37.0); Mean Corpuscular Hgb 31.9 pg (27.0-31.0); Mean Corpuscular Volume 90.8 fL (81.0-99.0); Mean Platelet Volume 9.4 fL (7.4-10.4); Platelet Count 270 10^3/uL (130-400); Red Blood Cell Count 2.73 10^6/uL (4.20-5.40); Red Cell Dist. Width 14.3 % (11.5-14.5); White Blood Cell Count 8.7 10^3/uL (4.8-10.8)
[2024-01-11 10:40] LABS: ALT (SGPT) 10 U/L (0-35); AST (SGOT) 23 U/L (14-36); Albumin 2.4 g/dl (3.5-5.0); Alkaline Phosphatase 88 U/L (38-126); Blood Urea Nitrogen 9 mg/dl (7-17); Calcium 8.3 mg/dl (8.4-10.2); Carbon Dioxide 23 mmol/L (22-30); Chloride 105 mmol/L (98-107); Direct Bilirubin 0.3 mg/dl (0.0-0.4); Estimated Creatinine Clearance 53 ml/min; Glucose 89 mg/dl (70-99); Potassium 3.7 mmol/L (3.5-5.1); Sodium 139 mmol/L (135-145); Total Bilirubin 0.5 mg/dl (0.2-1.3); Total Protein 4.6 g/dl (6.3-8.2); eGFR > 60.00
[2024-01-11 11:20] VITALS: BP 140/75
--- NOTE | 2024-01-11 11:42 | W.PN.GS2 ---
Today's Communication / Plan
-
Continue expectant management for now.
Assessment / Plan
-
This is a 63-year-old female with a surgical history of a vaginal hysterectomy, lap band procedure who presented with abdominal pain of unclear etiology. CT scan concerning for colitis of again unclear etiology.
Repeat CT scan from yesterday shows a dilated transverse colon and descending colon up to the level of the sigmoid where it somewhat decompressed over the pelvic brim however contrast gets through this area easily into the rectum effectively ruling
out obstruction.
N.p.o., IV fluids, IV antibiotics
Will discuss with GI possible flexible sigmoidoscopy and rectal tube decompression as this might be an [place]'s/large bowel ileus picture.
Colorectal surgery will follow starting Friday.
Time Spent
Total Time Spent with Patient (in minutes): 20
Subjective Data
-
Date of Service: January 11, 2024
Interval Events:
No acute events overnight. Pain slightly improved. Denies Nausea/Vomiting, +bowel function. Tolerating diet.
Objective Data
-
Intake and Output
01/10/24 01/11/24 01/12/24
06:59 06:59 06:59
Intake Total 1450 / 1450 1900 / 1900 1040 / 1040
Balance 1450 / 1450 1900 / 1900 1040 / 1040
Intake:
Oral fluids 1200 / 1200 240 / 240
IV fluids (Total) 200 / 200 1700 / 1700 800 / 800
IV piggybacks 50 / 50 200 / 200
Other:
Number of approximated MODERATE 3 2 2
amounts of urine
Vital Signs
Temp Pulse Resp BP Pulse Ox
97.9 F 81 16 140/75 96
01/11/24 11:20 01/11/24 11:20 01/11/24 11:20 01/11/24 11:20 01/11/24 11:20
Lab Results
01/11/24 09:33
01/11/24 09:
Calcium 8.3 mg/dl (8.4-10.2) L 01/11/24 09:
Magnesium 3.2 mg/dl (1.6-2.3) H 01/09/24 02:45
Total Bilirubin 0.5 mg/dl (0.2-1.3) 01/11/24:
Direct Bilirubin 0.3 mg/dl (0.0-0.4) 01/11/24:
AST 23 U/L (14-36) 01/11/24 09:33
ALT 10 U/L (0-35) 01/11/24 09:33
Alkaline Phosphatase 88 U/L (38-126) 01/11/24 09:33
Total Protein 4.6 g/dl (6.3-8.2) L 01/11/24 09:33
Albumin 2.4 g/dl (3.5-5.0) L 01/11/24 09:33
Physical Exam
-
GENERAL/NEURO: Awake, Alert, no distress
CHEST: Unlabored breathing on RA
ABDOMEN: Soft, somewhat diffusely tender, distended
[2024-01-11] MEDS: ROXICODONE 5 MG PO ×2 (13:19→19:33)
--- NOTE | 2024-01-11 13:32 | W.PN.HOSP.TC ---
Today's Communication/Plan
-
Continue with n.p.o. and IV fluids. Continue with antibiotics.
Continue with pain medication.
ICS.
Assessment / Plan
Assessment / Plan
63-year-old female with history of hypertension, been taking Ozempic lately presented to the hospital with abdominal pain with diarrhea, CT scan showed colitis, infectious versus other causes need to be considered, doubt or ischemic colitis but need
to be considered.
Generalized abdominal pain: related to colitis
Acute pancolitis- infectious versus other cause like inflammatory or ischemic need to be considered.
Stool workup so far negative
-Multiple WBC in the stool
Lactic acid check was 2.4 repeat improved and was 0.8
Lipase is normal
Continue Zosyn
cw Pain and nausea medication.
Remains symptomatic with abdominal pain and distention but no diarrhea.
GI following.
Abdominal distension -suspected sec to ileus . Suspect possible colitis . Doubt obstruction . Appt surgery input . Repeat CT A/P with contrast shows Findings compatible with colitis, contiguous involvement from the superior right colon through the
rectum. There is interval increase in gaseous distention of the colon, particularly the transverse colon, measurements given above. No evidence for free intraperitoneal air. No evidence for pneumatosis.
Dilated air and fluid-filled loops of small bowel, most likely an adynamic ileus. No pneumoatosis coli. No free air/obstruction.
US shows distended gallbladder without stones or biliary obstruction.
CW symptomatic tx.
NPO
Acute kidney injury: Multifactorial including dehydration, hypotension, NSAID intake.
Worsening, Initially was 2.1 and then 2.6 yesterday and back to 2 yesterday and today is 1.0
Continue IV fluid
Hyponatremia: Likely secondary to recurrent diarrhea and poor oral intake, present on admission
Normalized
Hyperkalemia: Potassium on admission was 5.3
Resolved.
Hypertension:
Pressure on the low side, hold amlodipine
Continue to monitor
Hemoglobin dropped, on admission was 13.8 and today is 11.2 baseline is around 11-12. Continue to drop from 9.3 yesterday then today is 8.7 , no evidence of overt bleeding
Hold anticoagulation and SCD
Continue to monitor
Migraine: Continue lamotrigine.
Anxiety: Stable continue lorazepam at bedtime.
DW at bedside.
DW RN.
Anticipated Discharge: > 48 hours
Subjective/Interval History
-
Date of Service: January 11, 2024
Pt with continued abdo pain needing IV pain meds.
No N/V .
Feels bloated.
Passing gas and had BM apparently.
No fever or chills.
Objective Data
-
Labs:
Laboratory Results
01/11/24
09:33
WBC 8.7
Hgb 8.7 L
Hct 24.8 L
Plt Count 270
Sodium 139
Potassium 3.7
Chloride 105
Carbon Dioxide 23
BUN 9
Creatinine 1.0
Glucose 89
Calcium 8.3 L
Total Bilirubin 0.5
AST 23
ALT 10
Alkaline Phosphatase 88
Vital Signs:
Vital Signs
Temp Pulse Resp BP Pulse Ox
97.9 F 81 16 140/75 96
01/11/24 11:20 01/11/24 11:20 01/11/24 11:20 01/11/24 11:20 01/11/24 11:20
I&O
01/10/24 01/11/24 01/12/24
06:59 06:59 06:59
Intake Total 1450 / 1450 1900 / 1900 1040 / 1040
Balance 1450 / 1450 1900 / 1900 1040 / 1040
Review of Systems
-
Constitutional: Denies Fever
Respiratory: Denies Trouble Breathing
Cardiac: Denies Chest Pain
Neuro: Denies Dizzy
Physical Exam
-
General: No Apparent Distress
HEENT: Moist Mucous Membranes
Respiratory: Clear to Auscultation
Cardiac: Regular Rhythm and S1/S2
GI: Soft, Normal Bowel Sounds, Tender (but no rebound or guarding; in all quadrants) and Distended (mild - no worse than yesterday)
Neuro: AO x 3
Psych: Calm; Negative Confused
Data Reviewed
-
CT Scan: Report Reviewed by me (ct a/p with contrast)
Labs: Labs Reviewed by me
--- NOTE | 2024-01-11 14:02 | W.PN.GI.CBS2 ---
Today's Communication / Plan
-
xray tomorrow am and possible flex sig
Assessment / Plan
-
The pt is a pleasant 63yo female with a PMH significant for HTN, anxiety, depression, prior gastric lap band surgery, hysterectomy, renal stones, migraines with new Emgality, wt loss with recent Ozempic use, who presented to the ER with complaints
of abdominal pain and diarrhea with blood. CT imaging with oral contrast only showed findings consistent with pancolitis and noted distended GB without stones. Labs stable with some drop of hbg 13.8 to 11.2 after admission and Na 130, K 5.3, creat
2.1, calcium 10.8, bili 0.7, AST 37, ALT 23, alk phos 131. She had subsequent tachycardia and hypotension on admission. Lactic acid elevated initially but normalized. She was placed on IV Zosyn and IV fluids and made NPO for GI evaluation. Prior
colonoscopy [place] [address] Kan which was normal aside from hemorrhoids. She had recent travel to [place] December 07 til December 21 but without symptoms after return. On admission she admitted to frequent NSAID use for migraines.
Problem list:
-abdominal pain/diarrhea/rectal bleeding with pancolitis
-tachycardia/hypotension on admission
-ecoli UTI
-confusion
-TORY on admission
-hyponatremia
-recent travel to [place] December 07- December 21
-mild acidosis
-lactic acidosis, resolved
Other pertinent medical hx:
-recent wt loss with Ozempic use
-migraine with new Emgality 4month ago and frequent NSAID use
-hx renal stones
-gastric lap band
-hysterectomy
-HTN
-anxiety/depression
Recommendations:
-continue antibiotics
- NPO
- diffuse colitis with on going SB ileus without marked improvement, will get xray in the am and if not improved will do flex sig (can do unprepped)
d/w pt and who agree
- ruq u/s without cholecystitis to explaiin ileus
- renal function improving
- encouraged the patient to ambulate
Subjective
Subjective
Date of Service: January 11, 2024
Pt with more pain in the morning and then felt somewhat better after having some loose bms. No vomiting
Objective
Data Reviewed
Laboratory Data:
Laboratory Results
01/11/24 09:33
01/11/24 09:33
Laboratory Results
Magnesium 3.2 mg/dl (1.6-2.3) H 01/09/24 02:45
Total Bilirubin 0.5 mg/dl (0.2-1.3) 01/11/24 09:33
AST 23 U/L (14-36) 01/11/24 09:33
ALT 10 U/L (0-35) 01/11/24 09:33
Alkaline Phosphatase 88 U/L (38-126) 01/11/24 09:33
Lipase 32 U/L (23-300) 01/07/24 17:29
Vital Signs and I&O:
Vital Signs
Temp Pulse Resp BP Pulse Ox
97.9 F 81 16 140/75 96
01/11/24 11:20 01/11/24 11:20 01/11/24 11:20 01/11/24 11:20 01/11/24 11:20
I&O
01/10/24 01/11/24 01/12/24
06:59 06:59 06:59
Intake Total 1450 / 1450 1900 / 1900 1040 / 1040
Balance 1450 / 1450 1900 / 1900 1040 / 1040
Physical Exam
Physical Exam
GI: Distended and Tender (not severe)
Neuro: Non Focal
[2024-01-11 15:10] VITALS: BP 147/77
[2024-01-11] MEDS: TYLENOL 650 MG PO (15:41)
[2024-01-11 19:59] VITALS: BP 143/70
[2024-01-11] MEDS: ATIVAN 1 MG PO (22:20)
[2024-01-11] MEDS: RISPERDAL 4 MG PO (22:21)
[2024-01-11] MEDS: NON-FORMULARY ITEM 1 MG PO (22:26)
[2024-01-11 23:00] VITALS: BP 151/87
[2024-01-12] VITALS (7 sets, daily range): BP systolic 127–148; BP diastolic 51–90; BMI 24.0
[2024-01-12] MEDS: NSS 1000 IV ×3 (03:43→11:55)
[2024-01-12] MEDS: DILAUDID 1 MG IV ×4 (05:14→20:38)
[2024-01-12] MEDS: ZOSYN 50 IV ×4 (05:14→23:39)
--- NOTE | 2024-01-12 07:31 | W.PN.GI.CBS2 ---
Addendum entered and electronically signed by Anupama Raphael MD 01/12/24 13:36:
I saw and examined the patient.
The COMPENSATION ASSOCIATE or PA's note was reviewed and I agree with the note.
Comment:
Since yesterday pt feels much better, much less distended, less pain, starting to pass some stool
abd: less distended, bs present
xray: improved dilation of bowel loops
impression:
ileus
colitis
plan:
clear liquid diet
will hold off on flex sig
continue antibiotics
eventual colonoscopy
Original Note:
Today's Communication / Plan
-
less pain and improved exam, distention improving with + stools WBC's normalized, no fever, some tachycardia last PM now improved, BP stable
-continue antibiotics
-stool studies neg
-for repeat abd X ray this am
-if abd X ray improved consider clear diet and holding on flex as improved exam
-will need OP follow up and full colonoscopy 6-8 week when improved
-appreciate surgical input
-AM labs pending
-encouraged the patient to ambulate
Assessment / Plan
-
The pt is a pleasant 63yo female with a PMH significant for HTN, anxiety, depression, prior gastric lap band surgery, hysterectomy, renal stones, migraines with new Emgality, wt loss with recent Ozempic use, who presented to the ER with complaints
of abdominal pain and diarrhea with blood. CT imaging with oral contrast only showed findings consistent with pancolitis and noted distended GB without stones. Labs stable with some drop of hbg 13.8 to 11.2 after admission and Na 130, K 5.3, creat
2.1, calcium 10.8, bili 0.7, AST 37, ALT 23, alk phos 131. She had subsequent tachycardia and hypotension on admission. Lactic acid elevated initially but normalized. She was placed on IV Zosyn and IV fluids and made NPO for GI evaluation. Prior
colonoscopy in [address] Kan which was normal aside from hemorrhoids. She had recent travel to [place] December 07 til December 21 but without symptoms after return. On admission she admitted to frequent NSAID use for migraines.
01/05 CT s/p with oral contrast only showed findings consistent with pancolitis and noted distended GB without stones
01/08 obstruction series -probable small and lg bowel ileus developing obstruction note excluded, chest
01/09 CT Abd/pel W Iv And Oral Contr Small bilateral pleural effusions, Adjacent compressive atelectasis, colitis, right colon through rectum, gaseous distention of colon, no free air or pneumatotis, dilated fluid filled SB loops with ileus,
dilated air and fluid-filled loops small bowel, mostly adynamic ileus, distended GB with with stones, no biliary ductal dilation, 2 nephrothlith upper right kidney, mod SQ edema
01/10- US abdomen Small bilateral pleural effusions. Nonvisualization of the common bile duct and pancreas.
Problem list:
-abdominal pain/diarrhea/rectal bleeding with pancolitis
-small and large bowel ileus
-tachycardia/hypotension on admission
-ecoli UTI
-confusion
-TORY on admission -- improving
-hyponatremia
-recent travel to [place] December 07- December 21
-mild acidosis
-lactic acidosis, resolved
Other pertinent medical hx:
-recent wt loss with Ozempic use
-migraine with new Emgality 4month ago and frequent NSAID use
-hx renal stones
-gastric lap band
-hysterectomy
-HTN
-anxiety/depression
Recommendations:
less pain and improved exam, distention improving with + stools WBC's normalized, no fever, some tachycardia last PM now improved, BP stable
-continue antibiotics
-stool studies neg
-for repeat abd X ray this am
-if abd X ray improved consider clear diet and holding on flex as improved exam
-will need OP follow up and full colonoscopy 6-8 week when improved
-appreciate surgical input
-AM labs pending
-encouraged the patient to ambulate
Subjective
Subjective
Date of Service: January 12, 2024
01/09 brown stool and gas, NPO . feeling better less distention
Objective
Data Reviewed
Laboratory Data:
Laboratory Results
Magnesium 3.2 mg/dl (1.6-2.3) H 01/09/24 02:45
Total Bilirubin 0.5 mg/dl (0.2-1.3) 01/11/24 09:33
AST 23 U/L (14-36) 01/11/24 09:33
ALT 10 U/L (0-35) 01/11/24 09:33
Alkaline Phosphatase 88 U/L (38-126) 01/11/24 09:33
Lipase 32 U/L (23-300) 01/07/24 17:29
Vital Signs and I&O:
Vital Signs
Temp Pulse Resp BP Pulse Ox
98.3 F 88 20 132/77 95
01/12/24 03:00 01/12/24 03:00 01/12/24 03:00 01/12/24 03:00 01/12/24 03:00
I&O
01/11/24 01/12/24 01/13/24
06:59 06:59 06:59
Intake Total 0 / 0 3060 / 3060
Balance 1900 / 1900 3060 / 3060
Physical Exam
Physical Exam
HEENT: Anicteric and Moist mucous membranes
Cardiology: Normal Sinus Rhythm
Pulmonary: Clear
GI: Soft, Distended (but improved from prior admission), Tender (mild without guarding or rebound ) and Normal Bowel Sounds
Extremities: No Edema
Neuro: Non Focal
[2024-01-12 08:00] LABS: Hematocrit 25.9 % (37.0-47.0); Hemoglobin 8.7 g/dL (12.0-16.0); Mean Corp Hgb Conc. 33.6 g/dL (33.0-37.0); Mean Corpuscular Hgb 31.1 pg (27.0-31.0); Mean Corpuscular Volume 92.5 fL (81.0-99.0); Mean Platelet Volume 9.1 fL (7.4-10.4); Platelet Count 297 10^3/uL (130-400); Red Cell Dist. Width 14.2 % (11.5-14.5); White Blood Cell Count 10.3 10^3/uL (4.8-10.8)
[2024-01-12] MEDS: EFFEXOR XR 225 MG PO (08:06)
[2024-01-12] MEDS: ROXICODONE 5 MG PO ×3 (08:06→18:00)
[2024-01-12] MEDS: LAMICTAL 150 MG PO (08:07)
[2024-01-12] MEDS: LAMICTAL 100 MG PO (08:07)
[2024-01-12] MEDS: DETROL LA 4 MG PO (08:07)
[2024-01-12] MEDS: RISPERDAL 2 MG PO (08:08)
[2024-01-12 09:21] LABS: Blood Urea Nitrogen 9 mg/dl (7-17); Calcium 8.2 mg/dl (8.4-10.2); Carbon Dioxide 19 mmol/L (22-30); Chloride 106 mmol/L (98-107); Estimated Creatinine Clearance 53 ml/min; Glucose 53 mg/dl (70-99); Potassium 3.7 mmol/L (3.5-5.1); Sodium 138 mmol/L (135-145); eGFR > 60.00
--- NOTE | 2024-01-12 10:43 | W.PN.CRS1 ---
Today's Communication / Plan
-
as below
Assessment/Plan
-
63-year-old female with PMH of elevated BMI (s/p lap band now deflated, on Ozempic but has not had any doses for the last 5 weeks), HTN, anxiety/depression, migraines who presents with abdominal pain associated with bloody diarrhea which started
01/05. She was recently in [place] for a trip. Her last colonoscopy was in [address] Kan, which was reported as normal. WBC normal, CT scan without IV contrast concerning for pancolitis. Stool studies, including C. difficile, were negative.
Working diagnosis was infectious/inflammatory versus ischemic colitis, was treated with IV antibiotics and bowel rest. She was also noted to have an TORY and placed on IV fluids. Patient with persistent abdominal pain and distention, so a surgical
consult was obtained on 01/09, with repeat CT scan showing pancolitis with transverse now dilated to 6 cm.
Afebrile, HR 80s to 100s, normotensive
WBC 10.3 from 8.7, Hb 8.7 from 8.7
�Pancolitis associated with bloody diarrhea; concern for infectious versus inflammatory versus ischemic versus other
� Stool studies have been negative, no leukocytosis; infectious seems less likely
� Ischemic colitis possible, but also seems less likely due to her age and lack of risk factors
� Inflammatory bowel is higher on my differential; will send CRP and fecal calprotectin
� Appreciate GI; undergoing flex sig with biopsies; can consider sending for CMV; she may need steroids if marked inflammation noted
� No acute surgical intervention currently indicated; there has been progression on the CT with increase in dilation of the transverse colon, concerning for toxic megacolon; however, patient not clinically acting like toxic megacolon
� Continue n.p.o., diet per GI
� Continue IV Zosyn; urine culture on 01/05 positive for E. coli; blood cultures negative stool cultures negative
� Continue pain control with Tylenol, oxycodone, Dilaudid as needed
� Continue home meds
� Recommend starting DVT PPx
� Appreciate hospitalist
Subjective Data
Subjective Data
Date of Service: January 12, 2024
No overnight events.
Pain controlled, somewhat improved since admission.
Denies nausea/vomiting. Still feels bloated. Currently n.p.o. for flex sig today
+flatus +BMs (x 5 liquid stools since for the last 24 hours) +voiding
Pt is OOB.
Objective Data
-
Vital Signs
Temp Pulse Resp BP Pulse Ox
98.0 F 89 18 131/72 95
01/12/24 07:00 01/12/24 07:00 01/12/24 07:00 01/12/24 07:00 01/12/24 07:00
Intake & Output
01/11/24 01/12/24 01/13/24
06:59 06:59 06:59
Intake Total 1900 / 1900 3060 / 3060
Balance 1900 / 1900 3060 / 3060
Intake:
Oral fluids 660 / 660
IV fluids (Total) 1700 / 1700 1500 / 1500
IV piggybacks 200 / 200 900 / 900
Other:
Number of approximated MODERATE 2 6
amounts of urine
Lab Results
01/12/24 07:05
01/12/24 07:05
Physical Exam
-
General: No Acute Distress and AOx3
Abdomen: Soft, Distended (Mildly distended/tympanitic), Tender (Mildly tender diffusely), No Guarding and No Rebound
Skin: Warm and Dry
--- NOTE | 2024-01-12 10:56 | W.PN.CRS1 ---
Today's Communication / Plan
-
await abdominal xray
possible flex sig today
continue IV antibiotics
daily crps
Assessment/Plan
-
Assessment: 63-year-old female with a surgical history of a vaginal hysterectomy, lap band procedure who presented with abdominal pain of unclear etiology. CT scan concerning for colitis of again unclear etiology.
Plan:
-Continue NPO status
-IV fluids/IV antibiotics
-GI awaiting abdominal xray this AM to determine if will flex sig
-Will await results of xray/scope for any furher recommendations
-Trend labs, daily CRPs
-No surgery at this time but discussed possibility if she does not improve or worsens
Subjective Data
Subjective Data
Date of Service: January 12, 2024
Patient states she still has abdominal pain however is improving. She has no nausea or vomiting. She is urinating without difficulty. She has flatus. The pain she describes as basically diffuse in nature and she feels bloated.
Objective Data
-
Vital Signs
Temp Pulse Resp BP Pulse Ox
98.0 F 89 18 131/72 95
01/12/24 07:00 01/12/24 07:00 01/12/24 07:00 01/12/24 07:00 01/12/24 07:00
Intake & Output
01/11/24 01/12/24 01/13/24
06:59 06:59 06:59
Intake Total 1900 / 1900 3060 / 3060
Balance 1900 / 1900 3060 / 3060
Intake:
Oral fluids 660 / 660
IV fluids (Total) 1700 / 1700 1500 / 1500
IV piggybacks 200 / 200 900 / 900
Other:
Number of approximated MODERATE 2 6
amounts of urine
Lab Results
01/12/24 07:05
08/26/24 07:05
Physical Exam
-
General: No Acute Distress
Abdomen: Soft, Distended (Mild) and Tender (Diffuse moderate, more prominent in the umbilical region)
Skin: Warm and Dry
--- NOTE | 2024-01-12 10:57 | W.PN.HOSP.TC ---
Today's Communication/Plan
-
abdominal x-ray
clears
appreciate consultants
Assessment / Plan
Assessment / Plan
63-year-old female with history of hypertension, elevated BMI s/p lap band now deflated, on Ozempic (no doses over past 5 weeks), anxiety, migraines presents to the ER wtih abdominal pain and diarrhea. CT showing pancolitis. Stool studies
negative. Infectious/inflammatory versus ischemic
CT A/P 01/10/24
IMPRESSION: Small bilateral pleural effusions, new since prior CT examination. Adjacent compressive atelectasis.
Findings compatible with colitis, contiguous involvement from the superior right colon through the rectum. There is interval increase in gaseous distention of the colon, particularly the transverse colon, measurements given above. No evidence for
free intraperitoneal air. No evidence for pneumatosis.
Dilated air and fluid-filled loops of small bowel, most likely an adynamic ileus.
Distended gallbladder with no evidence for gallstones. No evidence for biliary ductal dilation.
2 mm nephrolith in the upper right kidney.
Moderate subcutaneous edema, mainly laterally bilaterally.
Acute pancolitis
-stool studies so far negative
-lactic acidosis resolved
-continue IV Zosyn
-IV fluids, symptom control
-appreciate GI and CRS
-discussion was had on flex/sig, may be put on hold given clinical improvement overnight. repeat x-ray and consider trial of clears
-will need outpatient colonoscopy
Acute kidney injury: Multifactorial including dehydration, hypotension, NSAID intake.
-now resolved
-continue IVF
Hyponatremia: Likely secondary to recurrent diarrhea and poor oral intake, present on admission
Normalized
Hyperkalemia: Potassium on admission was 5.3
Resolved.
Hypertension:
Pressure on the low side, hold amlodipine
Continue to monitor
Hypoglycemia
-now on clears
-repeat
Hemoglobin dropped, on admission was 13.8 and today is 11.2 baseline is around 11-12. Continue to drop from 9.3 yesterday then today is 8.7 , no evidence of overt bleeding
-stable, no e/o overt bleeding
-add on iron studies
Migraine: Continue lamotrigine.
Anxiety: Stable continue lorazepam at bedtime.
DW at bedside.
DW RN.
51 minutes spent on patient care
Anticipated Discharge: > 48 hours
Subjective/Interval History
-
Date of Service: January 12, 2024
Objective Data
-
Labs:
Laboratory Results
01/12/24
07:05
WBC 10.3
Hgb 8.7 L
Hct 25.9 L
Plt Count 297
Sodium 138
Potassium 3.7
Chloride 106
Carbon Dioxide 19 L
BUN 9
Creatinine 1.0
Glucose 53 L*
Calcium 8.2 L
Vital Signs:
Vital Signs
Temp Pulse Resp BP Pulse Ox
98.0 F 89 18 131/72 95
01/12/24 07:00 01/12/24 07:00 01/12/24 07:00 01/12/24 07:00 01/12/24 07:00
I&O
01/11/24 01/12/24 01/13/24
06:59 06:59 06:59
Intake Total 190 / 0 3060 / 3060
Balance 1900 / 1900 3060 / 3060
[2024-01-12 11:13] LABS: Glucose - Point of Care 68 mg/dl (70-99)
[2024-01-12 11:52] LABS: Iron 22 ug/dl (37-170)
[2024-01-12 12:01] LABS: Percent Saturation 13 % (20-50); Total Iron Binding Capacity 161 ug/dl (265-497)
[2024-01-12 15:16] LABS: Vitamin B12 > 1000 pg/ml (239-931)
[2024-01-12] MEDS: LOVENOX SC (17:15)
[2024-01-12] MEDS: ATIVAN 1 MG PO (21:58)
[2024-01-12] MEDS: RISPERDAL 4 MG PO (21:58)
[2024-01-12] MEDS: ZANAFLEX 16 MG PO (21:58)
[2024-01-12] MEDS: AMBIEN 5 MG PO (21:58)
[2024-01-12] MEDS: NON-FORMULARY ITEM 10 MG PO (21:59)
[2024-01-13 03:30] VITALS: BP 137/66
[2024-01-13] MEDS: NSS 1000 IV ×3 (05:20→23:07)
[2024-01-13] MEDS: ZOSYN 50 IV ×3 (05:21→17:30)
[2024-01-13] MEDS: DILAUDID 1 MG IV ×4 (06:28→20:09)
[2024-01-13 07:00] VITALS: BP 125/72
[2024-01-13 07:48] LABS: Hematocrit 26.7 % (37.0-47.0); Hemoglobin 9.2 g/dL (12.0-16.0); Mean Corp Hgb Conc. 34.5 g/dL (33.0-37.0); Mean Corpuscular Hgb 31.4 pg (27.0-31.0); Mean Corpuscular Volume 91.1 fL (81.0-99.0); Mean Platelet Volume 8.6 fL (7.4-10.4); Platelet Count 351 10^3/uL (130-400); Red Blood Cell Count 2.93 10^6/uL (4.20-5.40); Red Cell Dist. Width 14.2 % (11.5-14.5)
[2024-01-13] MEDS: LAMICTAL 100 MG PO (08:18)
[2024-01-13] MEDS: ROXICODONE 5 MG PO ×2 (08:19→17:21)
[2024-01-13] MEDS: RISPERDAL 2 MG PO (08:19)
[2024-01-13] MEDS: LAMICTAL 150 MG PO (08:20)
[2024-01-13] MEDS: EFFEXOR XR 225 MG PO (08:20)
[2024-01-13] MEDS: DETROL LA 4 MG PO (08:20)
[2024-01-13 08:27] LABS: Blood Urea Nitrogen 4 mg/dl (7-17); Calcium 8.1 mg/dl (8.4-10.2); Carbon Dioxide 25 mmol/L (22-30); Chloride 106 mmol/L (98-107); Estimated Creatinine Clearance 59 ml/min; Glucose 76 mg/dl (70-99); Potassium 3.5 mmol/L (3.5-5.1); Sodium 138 mmol/L (135-145); eGFR > 60.00
--- NOTE | 2024-01-13 11:02 | W.PN.CRS1 ---
Today's Communication / Plan
-
No plans for OR at this time
Defer workup to GI
Assessment/Plan
-
63-year-old female with PMH of elevated BMI (s/p lap band now deflated, on Ozempic but has not had any doses for the last 5 weeks), HTN, anxiety/depression, migraines who presents with abdominal pain associated with bloody diarrhea which started
01/05. She was recently in [place] for a trip. Her last colonoscopy [place] [address] Kan, which was reported as normal. WBC normal, CT scan without IV contrast concerning for pancolitis. Stool studies, including C. difficile, were negative.
Working diagnosis was infectious/inflammatory versus ischemic colitis, was treated with IV antibiotics and bowel rest. She was also noted to have an TORY and placed on IV fluids. Patient with persistent abdominal pain and distention, so a surgical
consult was obtained on 01/09, with repeat CT scan showing pancolitis with transverse now dilated to 6 cm.
Afebrile, HR 80s to 100s, normotensive
WBC 10.0
Pancolitis associated with bloody diarrhea; concern for infectious versus inflammatory versus ischemic versus other
� No acute surgical intervention currently indicated
� Clears per GI
� Continue IV Zosyn; urine culture on 01/05 positive for E. coli; blood cultures negative stool cultures negative
� Continue pain control with Tylenol, oxycodone, Dilaudid as needed
�Will defer workup to gastroenterology, no surgical issues at this time
Subjective Data
Subjective Data
Date of Service: January 13, 2024
Patient states she feels 'okay'. She had clears yesterday which gave her abdominal pain and some bloating. She feels better today. She did not drink anything after her clear diet was started yesterday. She denies nausea or vomiting.
Objective Data
-
Vital Signs
Temp Pulse Resp BP Pulse Ox
98.4 F 84 18 125/72 96
01/13/24 07:00 01/13/24 07:00 01/13/24 07:00 01/13/24 07:00 01/13/24 07:00
Intake & Output
01/12/24 01/13/24 01/14/24
06:59 06:59 06:59
Intake Total 3060 / 3060 1380 / 1380
Balance 3060 / 3060 1380 / 1380
Intake:
Oral fluids 660 / 660 480 / 480
IV fluids (Total) 1500 / 1500 800 / 800
IV piggybacks 900 / 900 100 / 100
Other:
Number of approximated MODERATE 6 1
amounts of urine
Lab Results
01/13/24 07:11
01/13/24 07:11
Physical Exam
-
General: No Acute Distress and AOx3
Abdomen: Soft and Tender (Around umbilical area, mild to moderate)
Skin: Warm and Dry
--- NOTE | 2024-01-13 11:20 | W.PN.HOSP.TC ---
Today's Communication/Plan
-
see plan
Assessment / Plan
Assessment / Plan
63-year-old female with history of hypertension, elevated BMI s/p lap band now deflated, on Ozempic (no doses over past 5 weeks), anxiety, migraines presents to the ER wtih abdominal pain and diarrhea. CT showing pancolitis. Stool studies
negative. Infectious/inflammatory versus ischemic
CT A/P 01/10/24
IMPRESSION: Small bilateral pleural effusions, new since prior CT examination. Adjacent compressive atelectasis.
Findings compatible with colitis, contiguous involvement from the superior right colon through the rectum. There is interval increase in gaseous distention of the colon, particularly the transverse colon, measurements given above. No evidence for
free intraperitoneal air. No evidence for pneumatosis.
Dilated air and fluid-filled loops of small bowel, most likely an adynamic ileus.
Distended gallbladder with no evidence for gallstones. No evidence for biliary ductal dilation.
2 mm nephrolith in the upper right kidney.
Moderate subcutaneous edema, mainly laterally bilaterally.
Acute pancolitis
-stool studies so far negative
-lactic acidosis resolved
-continue IV Zosyn
-IV fluids, symptom control
-appreciate GI and CRS
-discussion was had on flex/sig, may be put on hold given clinical improvement overnight. patient had difficulty tolerating clears 01/11 with increased distension; better this morning
-will need outpatient colonoscopy
-F/U further GI recs
Acute kidney injury: Multifactorial including dehydration, hypotension, NSAID intake.
-now resolved
-continue IVF
Hyponatremia: Likely secondary to recurrent diarrhea and poor oral intake, present on admission
Normalized
Hyperkalemia: Potassium on admission was 5.3
Resolved.
Hypertension:
Pressure on the low side, hold amlodipine
Continue to monitor
Hypoglycemia
-now on clears
-repeat
Hemoglobin dropped, on admission was 13.8 and today is 11.2 baseline is around 11-12. Continue to drop from 9.3 yesterday then today is 8.7 , no evidence of overt bleeding
-stable, no e/o overt bleeding
-add on iron studies --> mixed IRENE and anemia inflammation
Migraine: Continue lamotrigine.
Anxiety: Stable continue lorazepam at bedtime.
DVT PPx - lovenox subQ resumed as Hg stable and patient high risk
FULL CODE
51 minutes spent on patient care
Anticipated Discharge: > 48 hours
Subjective/Interval History
-
Date of Service: January 13, 2024
tolerating clears better today than yesterday
still having diarrhea
Objective Data
-
Labs:
Laboratory Results
01/13/24
07:11
WBC 10.0
Hgb 9.2 L
Hct 26.7 L
Plt Count 351
Sodium 138
Potassium 3.5
Chloride 106
Carbon Dioxide 25
BUN 4 L
Creatinine 0.9
Glucose 76
Calcium 8.1 L
Vital Signs:
Vital Signs
Temp Pulse Resp BP Pulse Ox
98.4 F 84 18 125/72 96
01/13/24 07:00 01/13/24 07:00 01/13/24 07:00 01/13/24 07:00 01/13/24 07:00
I&O
01/12/24 01/13/24 01/14/24
06:59 06:59 06:59
Intake Total 3060 / 3060 1380 / 1380
Balance 3060 / 3060 1380 / 1380
Review of Systems
-
History Source: Patient
All other systems: Reviewed and negative
Physical Exam
-
General: No Apparent Distress
HEENT: Moist Mucous Membranes
Respiratory: Clear to Auscultation
Cardiac: Regular Rhythm and S1/S2
GI: Soft, Normal Bowel Sounds, Tender (but no rebound or guarding; in all quadrants) and Distended (mild - no worse than yesterday)
Neuro: AO x 3
Psych: Calm; Negative Confused
Data Reviewed
-
Diagnostic Radiology: Report Reviewed by me
Labs: Labs Reviewed by me
[2024-01-13 13:33] LABS: Magnesium 1.8 mg/dl (1.6-2.3)
--- NOTE | 2024-01-13 13:40 | CM ---
Patient seen at bedside with spous.
Cont IV's, clear liq diet
CM to continue to follow.
PLAN: Discharge when stable. No anticipated needs. to transport.
[2024-01-13 15:00] VITALS: BP 127/63
--- NOTE | 2024-01-13 17:03 | W.PN.GI.CBS2 ---
Today's Communication / Plan
-
Flex sigm tomorrow
AXR done today with improving ileus
Assessment / Plan
-
The pt is a pleasant 63yo female with a PMH significant for HTN, anxiety, depression, prior gastric lap band surgery, hysterectomy, renal stones, migraines with new Emgality, wt loss with recent Ozempic use, who presented to the ER with complaints
of abdominal pain and diarrhea with blood. CT imaging with oral contrast only showed findings consistent with pancolitis and noted distended GB without stones. Labs stable with some drop of hbg 13.8 to 11.2 after admission and Na 130, K 5.3, creat
2.1, calcium 10.8, bili 0.7, AST 37, ALT 23, alk phos 131. She had subsequent tachycardia and hypotension on admission. Lactic acid elevated initially but normalized. She was placed on IV Zosyn and IV fluids and made NPO for GI evaluation. Prior
colon[place] [address] Kan which was normal aside from hemorrhoids. She had recent travel to [place] December 07 til December 21 but without symptoms after return. On admission she admitted to frequent NSAID use for migraines.
01/05 CT s/p with oral contrast only showed findings consistent with pancolitis and noted distended GB without stones
01/08 obstruction series -probable small and lg bowel ileus developing obstruction note excluded, chest
01/09 CT Abd/pel W Iv And Oral Contr Small bilateral pleural effusions, Adjacent compressive atelectasis, colitis, right colon through rectum, gaseous distention of colon, no free air or pneumatotis, dilated fluid filled SB loops with ileus,
dilated air and fluid-filled loops small bowel, mostly adynamic ileus, distended GB with with stones, no biliary ductal dilation, 2 nephrothlith upper right kidney, mod SQ edema
01/10- US abdomen Small bilateral pleural effusions. Nonvisualization of the common bile duct and pancreas.
Problem list:
-abdominal pain/diarrhea/rectal bleeding with pancolitis
-small and large bowel ileus
-tachycardia/hypotension on admission
-ecoli UTI
-confusion
-TORY on admission -- improving
-hyponatremia
-recent travel to [place] December 07- December 21
-lactic acidosis, resolved
-recent wt loss with Ozempic use
-migraine with new Emgality 4month ago and frequent NSAID use
-hx renal stones
-gastric lap band
-hysterectomy
-HTN
-anxiety/depression
Recommendations:
- AXR with improving ileus
- Stool studies neg
- Recommend flex sigm with bx given persistence of diarrhea
- NPO at [place] for procedure tomorrow. enemas ordered
- Avoid ozempic in future
Above d/w family
Subjective
Subjective
Date of Service: January 13, 2024
She is eating CLD but still having 7-8 out of 10 pain. Use of IV pain meds less frequent. Still c/o diarrhea
Objective
Data Reviewed
Laboratory Data:
Laboratory Results
01/13/24 07:11
01/13/24 07:11
Laboratory Results
Magnesium 1.8 mg/dl (1.6-2.3) 01/13/24 07:11
Total Bilirubin 0.5 mg/dl (0.2-1.3) 01/11/24 09:33
AST 23 U/L (14-36) 01/11/24 09:33
ALT 10 U/L (0-35) 01/11/24 09:33
Alkaline Phosphatase 88 U/L (38-126) 01/11/24 09:33
Lipase 32 U/L (23-300) 01/07/24 17:29
Vital Signs and I&O:
Vital Signs
Temp Pulse Resp BP Pulse Ox
98.0 F 57 18 127/63 96
01/13/24 15:00 01/13/24 15:00 01/13/24 15:00 01/13/24 15:00 01/13/24 15:00
I&O
01/12/24 01/13/24 01/14/24
06:59 06:59 06:59
Intake Total 3060 / 3060 1380 / 1380
Balance 3060 / 3060 1380 / 1380
Physical Exam
Physical Exam
GEN: No acute distress, conversant, pleasant
HEENT: anicteric, extraocular movements intact, clear oropharynx without exudates
GI: soft, mildly-distended, diffusely tender to palpation, normal active bowel sounds, no hepatosplenomegaly
EXT: warm, well perfused, no edema bilaterally
NEURO: AAOx3, non-focal
[2024-01-13] MEDS: LOVENOX SC (17:29)
[2024-01-13 19:30] VITALS: BP 157/83
[2024-01-13] MEDS: RISPERDAL 4 MG PO (22:13)
[2024-01-13] MEDS: ZANAFLEX 16 MG PO (22:13)
[2024-01-13] MEDS: ATIVAN 1 MG PO (22:14)
[2024-01-13] MEDS: AMBIEN 5 MG PO (22:14)
[2024-01-13] MEDS: NON-FORMULARY ITEM 10 MG PO (23:06)
[2024-01-13 23:30] VITALS: BP 124/72
[2024-01-14] VITALS (8 sets, daily range): BP systolic 128–158; BP diastolic 65–88
[2024-01-14] MEDS: ZOSYN 50 IV ×4 (00:01→17:06)
[2024-01-14] MEDS: DILAUDID 1 MG IV ×5 (02:49→20:16)
[2024-01-14 07:04] LABS: Hematocrit 25.8 % (37.0-47.0); Hemoglobin 9.1 g/dL (12.0-16.0); Mean Corp Hgb Conc. 35.3 g/dL (33.0-37.0); Mean Corpuscular Hgb 32.5 pg (27.0-31.0); Mean Corpuscular Volume 92.1 fL (81.0-99.0); Mean Platelet Volume 8.9 fL (7.4-10.4); Platelet Count 359 10^3/uL (130-400); White Blood Cell Count 10.4 10^3/uL (4.8-10.8)
[2024-01-14 07:25] LABS: Blood Urea Nitrogen < 2 mg/dl (7-17); Calcium 8.1 mg/dl (8.4-10.2); Carbon Dioxide 27 mmol/L (22-30); Chloride 106 mmol/L (98-107); Estimated Creatinine Clearance 66 ml/min; Glucose 94 mg/dl (70-99); Magnesium 1.6 mg/dl (1.6-2.3); Potassium 3.2 mmol/L (3.5-5.1); Sodium 140 mmol/L (135-145); eGFR > 60.00
[2024-01-14] MEDS: KCL 40 MEQ PO ×2 (08:20→20:13)
[2024-01-14] MEDS: ROXICODONE 5 MG PO ×2 (08:20→14:53)
[2024-01-14] MEDS: LAMICTAL 100 MG PO (08:21)
[2024-01-14] MEDS: LAMICTAL 150 MG PO (08:21)
--- NOTE | 2024-01-14 10:50 | W.PN.HOSP.TC ---
Today's Communication/Plan
-
Follow-up sigmoidoscopy pathology
Continue IV Zosyn empirically
Follow-up repeat C. difficile
Assessment / Plan
Assessment / Plan
#Acute pancolitis -- DDx include C. difficile, other infectious source, IBD
-Stool studies so far, including initial C. difficile test, were negative; was previously on Ozempic with possible association
-No recent known travel though it increase her risk for obscure infections like T. cruzi or other parasitic infections
-Stool cultures, Cryptosporidium and Giardia testing have all been negative thus far; no stool WBC or lactoferrin ordered
-Flex sig today showed findings consistent with pseudomembranous colitis, signs of ulcerations and erythema
-Biopsies were taken during flex sig today, expect results over the next few days which should help identify etiology
-Gastroenterology is following, recommends holding off on vancomycin PO for now, resume low residue diet
Plan
-Follow-up repeat C. difficile testing
-Consider oral vancomycin regimen positive C. difficile
-Continue with IV Zosyn empirically for now
-Follow-up biopsy results from sigmoidoscopy
-Monitor on full diet
-Trend CBC and inflammatory markers
#Hypokalemia
-Secondary to diarrhea, provided potassium chloride supplementation
-Will monitor BMP and replete as needed
#Anemia
-Presented with hemoglobin 13.8, has down trended to near 9.0
-She does have some signs of GI bleeding, pink color diarrhea reported by her overnight
-Iron studies were showing signs of chronic disease as well as iron deficiency
-Will continue to trend CBC, consider iron supplementation
#Hypertension
-No known history of hypertensive systemic disease
-Home medications include amlodipine, currently held for soft BP
#Migraines
-Chronic, well-controlled on lamotrigine
#Resolved Hospital problems
-TORY; resolved with IV fluids
-Hyponatremia; normalized with improved intake
-Hyperkalemia secondary to TORY; normalized with IVF
-Hypoglycemia; resolved with improved oral intake
#Anxiety
-Stable, continue lorazepam at bedtime.
#Asymptomatic bacteriuria
-Urine culture returned positive for E. coli, remains on IV Zosyn for empiric coverage of colitis
DVT prophylaxis: Lovenox subcu
Diet: Low residue
CODE STATUS: Full code
Anticipated Discharge: 24 - 48 hours
Subjective/Interval History
-
Date of Service: January 14, 2024
Patient was seen and examined at the bedside. No acute events reported overnight.
She states she feels better than previous days though still has significant diarrhea, often of large volume. She states that she thinks there may have been a reddish tinge to it today and cannot rule out any bleeding.
She denies chest pain, shortness of breath, fevers or chills, nausea or vomiting, other signs of abnormal bleeding or bruising, paresthesias or weakness, urinary issues.
Objective Data
-
Labs:
Laboratory Results
01/14/24
06:16
WBC 10.4
Hgb 9.1 L
Hct 25.8 L
Plt Count 359
Sodium 140
Potassium 3.2 L
Chloride 106
Carbon Dioxide 27
BUN < 2 L
Creatinine 0.8
Glucose 94
Calcium 8.1 L
Vital Signs:
Vital Signs
Temp Pulse Resp BP Pulse Ox
98.3 F 83 21 137/78 94
01/14/24 10:47 01/14/24 10:45 01/14/24 10:45 01/14/24 10:45 01/14/24 10:45
I&O
01/13/24 01/14/24 01/15/24
06:59 06:59 06:59
Intake Total 1380 / 1380 1300 / 1300
Balance 1380 / 1380 1300 / 1300
Review of Systems
-
History Source: Patient
All other systems: Reviewed and negative
Physical Exam
-
General: Well Nourished, No Apparent Distress and Comfortable
HEENT: Normocephalic, Atraumatic, Moist Mucous Membranes and Anicteric
Respiratory: Clear to Auscultation and Non Labored Respirations; Negative Wheezes, Rales or Rhonchi
Cardiac: Regular Rhythm and S1/S2; Negative Murmur, Rub or Gallop
GI: Soft, Nondistended, Normal Bowel Sounds and Tender (Worst periumbilically, no peritoneal signs)
Musculoskeletal: No Clubbing, No Cyanosis and No Edema
Skin: Warm and Dry; Negative Rash
Neuro: AO x 3, Nonfocal/Grossly Intact and Central Nerve's Intact
Data Reviewed
-
Labs: Labs Reviewed by me and Discussed with Patient
--- NOTE | 2024-01-14 11:53 | CM ---
Advanced diet t Low residual.
Pt declined need for VN at sd.
Family will drive her home.
PLAN Home no needs
[2024-01-14] MEDS: EFFEXOR XR 225 MG PO (12:01)
[2024-01-14] MEDS: DETROL LA 4 MG PO (12:01)
[2024-01-14] MEDS: RISPERDAL 2 MG PO (12:02)
[2024-01-14] MEDS: LOVENOX 40 MG SC (17:08)
[2024-01-14] MEDS: ATIVAN 1 MG PO (21:13)
[2024-01-14] MEDS: NON-FORMULARY ITEM 10 MG PO (21:13)
[2024-01-14] MEDS: AMBIEN 5 MG PO (21:13)
[2024-01-14] MEDS: RISPERDAL 4 MG PO (21:13)
[2024-01-14] MEDS: ZANAFLEX 16 MG PO (21:13)
[2024-01-14] MEDS: NSS IV (21:40)
[2024-01-15] MEDS: ZOSYN 50 IV ×3 (00:21→10:58)
[2024-01-15] MEDS: ROXICODONE 5 MG PO ×2 (00:23→08:55)
[2024-01-15] MEDS: DILAUDID 1 MG IV ×3 (01:36→10:57)
[2024-01-15 07:39] VITALS: BP 138/76
[2024-01-15] MEDS: LAMICTAL 150 MG PO (08:01)
[2024-01-15] MEDS: RISPERDAL 2 MG PO (08:01)
[2024-01-15] MEDS: EFFEXOR XR 225 MG PO (08:02)
[2024-01-15] MEDS: LAMICTAL 100 MG PO (08:02)
[2024-01-15] MEDS: DETROL LA 4 MG PO (08:02)
[2024-01-15 08:18] LABS: % Basophils 0.4 % (0-2); % Eosinophils 3.7 % (0-6); % Immature Granulocytes 0.9 % (0-0.5); % Lymphocytes 30.7 % (20.5-51.1); % Monocytes 7.8 % (1.7-9.3); % Neutrophils 56.5 % (42.2-75.2); Absolute Eosinophils 0.3 10^3/uL (0-0.7); Absolute Immature Granulocytes 0.1 10^3/uL (0-0.05); Absolute Lymphocytes 2.6 10^3/uL (1.2-3.4); Absolute Monocytes 0.7 10^3/uL (0.1-0.6); Absolute Neutrophils 4.8 10^3/uL (1.4-6.5); Hematocrit 25.5 % (37.0-47.0); Hemoglobin 8.7 g/dL (12.0-16.0); Mean Corp Hgb Conc. 34.1 g/dL (33.0-37.0); Mean Corpuscular Volume 93.8 fL (81.0-99.0); Mean Platelet Volume 9.1 fL (7.4-10.4); Nucleated Red Blood Cells % 0 %; Platelet Count 396 10^3/uL (130-400); Red Blood Cell Count 2.72 10^6/uL (4.20-5.40); Red Cell Dist. Width 14.2 % (11.5-14.5); White Blood Cell Count 8.5 10^3/uL (4.8-10.8)
[2024-01-15 08:27] LABS: Erythrocyte Sed Rate 52 mm/hour (0-20)
[2024-01-15 09:17] LABS: Blood Urea Nitrogen 5 mg/dl (7-17); Calcium 8.2 mg/dl (8.4-10.2); Carbon Dioxide 30 mmol/L (22-30); Chloride 103 mmol/L (98-107); Estimated Creatinine Clearance 66 ml/min; Glucose 89 mg/dl (70-99); Potassium 3.7 mmol/L (3.5-5.1); Sodium 138 mmol/L (135-145); eGFR > 60.00
--- NOTE | 2024-01-15 10:04 | W.PN.GI.CBS2 ---
Addendum entered and electronically signed by May Shah Do, MD 01/27/24 10:20:
CDI inquiry Addendum
Patient had Active Colitis with Abscess/ulceration during hospitalization and seen on flex sigmoidoscopy
Original Note:
Today's Communication / Plan
-
Tolerating diet, abd pain improved
Await path from flex sigm 01/13
Ok from GI perspective for hosp d/c today. Please call with questions
Assessment / Plan
-
The pt is a pleasant 63yo female with a PMH significant for HTN, anxiety, depression, prior gastric lap band surgery, hysterectomy, renal stones, migraines with new Emgality, wt loss with recent Ozempic use, who presented to the ER with complaints
of abdominal pain and diarrhea with blood. CT imaging with oral contrast only showed findings consistent with pancolitis and noted distended GB without stones. Labs stable with some drop of hbg 13.8 to 11.2 after admission and Na 130, K 5.3, creat
2.1, calcium 10.8, bili 0.7, AST 37, ALT 23, alk phos 131. She had subsequent tachycardia and hypotension on admission. Lactic acid elevated initially but normalized. She was placed on IV Zosyn and IV fluids and made NPO for GI evaluation. Prior
colonoscopy [place] [address] Kan which was normal aside from hemorrhoids. She had recent travel to [place] December 07 til December 21 but without symptoms after return. On admission she admitted to frequent NSAID use for migraines.
01/05 CT s/p with oral contrast only showed findings consistent with pancolitis and noted distended GB without stones
01/08 obstruction series -probable small and lg bowel ileus developing obstruction note excluded, chest
01/09 CT Abd/pel W Iv And Oral Contr Small bilateral pleural effusions, Adjacent compressive atelectasis, colitis, right colon through rectum, gaseous distention of colon, no free air or pneumatotis, dilated fluid filled SB loops with ileus,
dilated air and fluid-filled loops small bowel, mostly adynamic ileus, distended GB with with stones, no biliary ductal dilation, 2 nephrothlith upper right kidney, mod SQ edema
01/10- US abdomen Small bilateral pleural effusions. Nonvisualization of the common bile duct and pancreas.
01/13- Flex sigm colitis from sigmoid to DC bx pending
Problem list:
-abdominal pain/diarrhea/rectal bleeding with pancolitis
Cdiff negative x2
-small and large bowel ileus
-tachycardia/hypotension on admission
-ecoli UTI
-confusion
-TORY on admission -- improving
-hyponatremia
-recent travel to [place] December 07- December 21
-lactic acidosis, resolved
-recent wt loss with Ozempic use
-migraine with new Emgality 4month ago and frequent NSAID use
-hx renal stones
-gastric lap band
-hysterectomy
-HTN
-anxiety/depression
Recommendations:
- AXR with improving ileus
- Flex sigm 01/13 with severe colitis s/p random bx
- Await pathology, will call her with results
- Tolerating low residue diet
- Avoid ozempic in future
At this juncture ok from GI perspective for hosp d/c. To FU with GI outpatient basis
Will sign off please call for questions.
Subjective
Subjective
Date of Service: January 15, 2024
She is tolerating diet. Denies nausea/vomiting. Abd pain improved to 5 out of 10.
Objective
Data Reviewed
Laboratory Data:
Laboratory Results
01/15/24 06:31
01/15/24 06:31
Laboratory Results
Magnesium 1.6 mg/dl (1.6-2.3) 01/14/24 06:16
Total Bilirubin 0.5 mg/dl (0.2-1.3) 01/11/24 09:33
AST 23 U/L (14-36) 01/11/24 09:33
ALT 10 U/L (0-35) 01/11/24 09:33
Alkaline Phosphatase 88 U/L (38-126) 01/11/24 09:33
Lipase 32 U/L (23-300) 01/07/24 17:29
Vital Signs and I&O:
Vital Signs
Temp Pulse Resp BP Pulse Ox
98.7 F 84 20 138/76 93
01/15/24 07:39 01/15/24 07:39 01/15/24 07:39 01/15/24 07:39 01/15/24 07:39
I&O
01/14/24 01/15/24 01/16/24
06:59 06:59 06:59
Intake Total 1300 / 1300 1240 / 1240
Balance 1300 / 1300 1240 / 1240
Physical Exam
Physical Exam
GEN: No acute distress, conversant, pleasant sitting up in bed
HEENT: anicteric, extraocular movements intact, clear oropharynx without exudates
GI: soft, obese mildly-distended, not tender to palpation, normal active bowel sounds, no hepatosplenomegaly
EXT: warm, well perfused, trace edema bilaterally
NEURO: AAOx3, non-focal
--- NOTE | 2024-01-15 12:08 | CM ---
Patiet seen bedside with spouse.
Patient denies home care needs.
paer patient possible d/c home today.
patient has transportation.
Plan:home no needs.
--- NOTE | 2024-01-15 12:44 | W.PN.HOSP.TC ---
Today's Communication/Plan
-
Discharge
Follow-up with GI in office to review biopsy results
Assessment / Plan
Assessment / Plan
#Acute pancolitis -- DDx include C. difficile, other infectious source, IBD
-Stool studies so far, including initial C. difficile test, were negative; was previously on Ozempic with possible association
-No recent known travel though it increase her risk for obscure infections like T. cruzi or other parasitic infections
-Stool cultures, Cryptosporidium and Giardia testing have all been negative thus far; no stool WBC or lactoferrin ordered
-Flex sig today showed findings consistent with pseudomembranous colitis, signs of ulcerations and erythema
-Biopsies were taken during flex sig today, expect results over the next few days which should help identify etiology
-Gastroenterology is following, recommends holding off on vancomycin PO for now, resume low residue diet
-C. difficile testing was negative x 2, status post sigmoidoscopy with biopsy, results pending
-Plan to discharge with follow-up with outpatient gastroenterology, on low residue diet
#Hypokalemia
-Secondary to diarrhea, provided potassium chloride supplementation
-Will monitor BMP and replete as needed
#Anemia
-Presented with hemoglobin 13.8, has down trended to near 9.0
-She does have some signs of GI bleeding, pink color diarrhea reported by her overnight
-Iron studies were showing signs of chronic disease as well as iron deficiency
-Will continue to trend CBC, consider iron supplementation
#Hypertension
-No known history of hypertensive systemic disease
-Home medications include amlodipine, currently held for soft BP
#Migraines
-Chronic, well-controlled on lamotrigine
#Resolved Hospital problems
-TORY; resolved with IV fluids
-Hyponatremia; normalized with improved intake
-Hyperkalemia secondary to TORY; normalized with IVF
-Hypoglycemia; resolved with improved oral intake
#Anxiety
-Stable, continue lorazepam at bedtime.
#Asymptomatic bacteriuria
-Urine culture returned positive for E. coli, remains on IV Zosyn for empiric coverage of colitis
-No abx to be given at DC
DVT prophylaxis: Lovenox subcu
Diet: Low residue
CODE STATUS: Full code
Anticipated Discharge: Today
Subjective/Interval History
-
Date of Service: January 15, 2024
Seen and examined at bedside today. No acute events overnight.
She states she feels well, no acute complaints including chest pain, shortness of breath, fevers or chills, abdomen pain, nausea or vomiting, abnormal bleeding or bruising, paresthesias or weakness. She says she still has consistent diarrhea though
no signs of bleeding or melena.
Remains hemodynamically stable, and on room air.
Objective Data
-
Labs:
Laboratory Results
01/15/24
06:31
WBC 8.5
Hgb 8.7 L
Hct 25.5 L
Plt Count 396
Sodium 138
Potassium 3.7
Chloride 103
Carbon Dioxide 30
BUN 5 L
Creatinine 0.8
Glucose 89
Calcium 8.2 L
Vital Signs:
Vital Signs
Temp Pulse Resp BP Pulse Ox
98.7 F 84 20 138/76 93
01/15/24 07:39 01/15/24 07:39 01/15/24 07:39 01/15/24 07:39 01/15/24 07:39
I&O
01/14/24 01/15/24 01/16/24
06:59 06:59 06:59
Intake Total 1300 / 1300 1240 / 1240
Balance 1300 / 1300 1240 / 1240
Review of Systems
-
History Source: Patient
All other systems: Reviewed and negative
Physical Exam
-
General: Well Nourished, No Apparent Distress and Comfortable
HEENT: Normocephalic, Atraumatic and Moist Mucous Membranes
Respiratory: Clear to Auscultation and Non Labored Respirations
Cardiac: Regular Rhythm and S1/S2; Negative Murmur, Rub or Gallop
GI: Soft, Nontender, Nondistended and Normal Bowel Sounds (Hyperactive bowel sounds)
Musculoskeletal: No Clubbing, No Cyanosis and No Edema
Skin: Warm and Dry; Negative Rash
Neuro: AO x 3, Nonfocal/Grossly Intact and Central Nerve's Intact
Data Reviewed
-
Labs: Labs Reviewed by me, Discussed with Patient and Discussed with Family
--- NOTE | 2024-01-15 12:56 | W.DCSUMMARY ---
Discharge Summary
Discharge Data
Date of Admission: 01/07/24
Date of Discharge: 01/15/24
-
Pending Results: Yes
Additional Pending Results:
Pathology report from biopsy taken in hospital, sigmoidoscopy on 01/14/2024
Hospital Course
63-year-old female with CKD, hypertension, anxiety and depression, that presented to the emergency department with a complaint of diarrhea and abdominal pain. CT A/P on arrival showed diffuse colon wall thickening consistent with underlying
colitis. Initial differential including infectious versus inflammatory versus hemic source. Inflammatory markers were high. Stool studies showed high concentration. Stool cultures and testing for C. difficile, cryptococcus, and Giardia were all
unyielding. Was empirically treated with IV Zosyn throughout the hospital stay. Repeat CT scan on the day for redemonstrated findings of pancolitis. Monitored demonstrated stable on abdominal x-rays. Went for sigmoidoscopy on 01/14/2024 with
random biopsy results taken. Concern for a pseudomembranous appearance during sigmoidoscopy, repeat C. difficile testing was negative. Clinically improved on low residue diet. Discharged on 01/15/2024 with plan to follow-up with gastroenterology
in the office to review biopsy results.
Discharge Plan
-
Patient Disposition: Home (Routine Discharge)
Discharge Diagnosis/Procedures: Pancolitis
Bloody diarrhea
Condition: Good
Diet: Low Residue
Additional Diets: See handout for low residue diet guidelines
Activity: As tolerated
Driving Restrictions: No driving for 24 hours
Bathing Restrictions: None
Blood Work: None
Others Tests: None
Activity Restrictions/Additional Instructions:
Schedule follow-up appointment with your primary care doctor and gastroenterology referral. You will review the biopsy results, from your sigmoidoscopy, in the office with a fountain pen nibs inspector
Instructions: Low Fiber Diet
Referrals:
Melissa Engle NP [Specified Professional Personl] - 02/13/24 11:30 am (call if you cannot make this appt)
Karan Menjivar Jr., DO [Family Provider] -
Additional Discharge Medication Instructions: Do not take semaglutide (Ozempic) or other similar agents (GLP-1 agonists)
Prescriptions:
Continued
tizanidine 4 MG tablet
16 mg PO HS
risperidone 1 MG tablet
2 mg PO DAILY
amlodipine 5 MG tablet
5 mg PO DAILY
diphenhydramine HCl [Banophen] 25 MG capsule
50 mg PO HS
mirabegron [Myrbetriq] 50 MG tablet extended release 24 hr
50 mg PO DAILY
lamotrigine [Lamictal] 150 MG tablet
150 mg PO DAILY
risperidone 2 MG tablet
4 mg PO HS
lorazepam 0.5 MG tablet
1 mg PO HS
Patient Comments:
patient picked up on 12/25/20 #90
zolpidem 5 MG tablet
5 mg PO HS
Patient Comments:
pdmp picked up on 01/08/21 #30 for 30 days
lamotrigine 100 MG tablet
100 mg PO DAILY
venlafaxine 225 MG tablet extended release 24hr
225 mg PO DAILY
Demerol 100 MG tablet
50 mg PO Q6HPRN PRN (Reason: migraines)
Patient Comments:
pdmp picked on 12/20/2020# 68 for 17 days
zaleplon 10 MG capsule
10 mg PO HS
Patient Comments:
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
Emgality Syringe
1 dose IM MONTHLY
hydrocodone-acetaminophen 1 TABLET tablet
1 tab PO Q4HPRN PRN (Reason: pain)
Rx Instructions:
5mg tab
Discontinued
metaxalone [Skelaxin] 800 MG tablet
800 mg PO TIDPRN PRN (Reason: muscle pain)
Discharge Orders:
Discharge Patient (As Directed); Ordered 01/15/24
Ordered By: David Saldivar
Discharge Date and Time
Print Language: SERBIAN
[2024-01-15 13:20] VITALS: BP 121/81
--- NOTE | 2024-01-16 14:09 | PN.CDI ---
CDI
- -
CDI:
Physician Documentation Request
Admit Date: 01/07/24 00:26
Dear Doctor Do,
Please review the following and provide your response in the progress notes.
Clinical Indicators:
The diagnosis of Active colitis with crypt abscess formation was included in the signed colon biopsy.
Additional clinical indicators in the chart include:
Pt admitted with colitis/Ileus
Colon Biopsy ,' Active colitis ,severe with crypt abscess formation and focal area of purulent material ,highly suggestive of ulceration. '
Please indicate in your progress notes if you are in agreement that the above diagnosis is valid for this patient:
____ - Active Colitis with Abscess/ulceration is a valid diagnosis (Please include it in your progress notes)
____ - Active Colitis with Abscess/ulceration is not a valid diagnosis for this patient
____ - Other
Use of terms such as suspected, likely, concern for, or probable are acceptable for a diagnosis that is being evaluated, monitored or treated as if it exists and can be coded in the inpatient setting, when documented at the time of discharge.
Thank you,
Sue Torres RN
CDI Specialist
[place] [facility]
Please use your independent medical judgment in providing your response.
[2024-01-18 01:40] LABS: Calprotectin, Fecal 407 ug/g (<=49)
== END 2024-01-15 13:29 | disposition home or self-care (01) | DRG 386 ==
LOC: 4 WEST ACU 00:26
PROVIDERS: Clinical Nurse Specialist Family Health; Internal Medicine; Internal Medicine Gastroenterology; Nurse Practitioner Adult Health; Nurse Practitioner Family; Physician Assistant; Specialist; Student in an Organized Health Care Education/Training Program; Surgery; ADMITTING PHYSICIAN Internal Medicine; ATTENDING PHYSICIAN Internal Medicine; CONSULT PHYSICIAN Internal Medicine Endocrinology, Diabetes & Metabolism; EMERGENCY PHYSICIAN Emergency Medicine; FAMILY PHYSICIAN Family Medicine; OTHER PHYSICIAN Surgery
PROC: 0DBE8ZX Excision of Large Intestine, Via Natural or Artificial Opening Endoscopic, Diagnostic (ICD-10-PCS; 2024-01-07)
DX: K51.514 Left sided colitis with abscess (principal); E87.1 Hypo-osmolality and hyponatremia; N17.9 Acute kidney failure, unspecified; N39.0 Urinary tract infection, site not specified; K56.0 Paralytic ileus; J98.11 Atelectasis; E87.20 Acidosis, unspecified; E78.00 Pure hypercholesterolemia, unspecified; N18.30 Chronic kidney disease, stage 3 unspecified; I12.9 Hypertensive chronic kidney disease with stage 1 through stage 4 chronic kidney disease, or unspecified chronic kidney disease; F32.A Depression, unspecified; F41.9 Anxiety disorder, unspecified; G43.909 Migraine, unspecified, not intractable, without status migrainosus; E87.5 Hyperkalemia; R73.9 Hyperglycemia, unspecified; D63.1 Anemia in chronic kidney disease; D50.9 Iron deficiency anemia, unspecified; G47.00 Insomnia, unspecified; E86.0 Dehydration; I95.9 Hypotension, unspecified; R41.0 Disorientation, unspecified; B96.20 Unspecified Escherichia coli [E. coli] as the cause of diseases classified elsewhere; K64.8 Other hemorrhoids; Z79.84 Long term (current) use of oral hypoglycemic drugs; Z91.040 Latex allergy status; Z98.84 Bariatric surgery status; Z79.899 Other long term (current) drug therapy
CPT/HCPCS: 88305; 74018; 74019; 74022; 74176; 74177; 76700; 80048; 80053; 81003; 81015; 82248; 82607; 82728; 82962; 83540; 83550; 83605; 83690; 83735; 83993; 85025; 85027; 85652; 86140; 87040; 87045; 87046; 87077; 87086; 87186; 87324; 87328; 87329; 87427; 87449; 89055; 96365; 96366; 96375; 99285; Q9967

== ENCOUNTER 2024-01-21 22:47 | Inpatient (IN) | payer BC, SELFPAY ==
[2024-01-21 16:46] VITALS: BP 125/76
[2024-01-21] MEDS: TYLENOL 1000 MG PO (16:55)
--- NOTE | 2024-01-21 17:01 | ED.PDOC.TRB ---
ED Provider Triage
-
Patient seen by provider in Triage?: Seen in Triage
A medical screening examination has been initiated by a qualified medical provider. Based on the assessment performed at this time, it has been determined that an emergent medical condition may exist and the patient has been informed that further
medical evaluation and possible additional diagnostic testing may be needed.
HPI: This is a medical evaluation conducted in person to initiate diagnostic evaluation and provide initial therapeutics. Please see further documentation by the treating clinician.
GENERAL: Alert , in no apparent distress
ENT: No visible abnormalities
LUNGS: No acute respiratory distress
NEUROLOGICAL: Alert and oriented
SKIN: Skin intact. No visible changes.
MUSCULOSKELETAL: Moving extremities normally
PSYCH: Normal and appropriate interaction.
63 y/o F
was recently hosptilized for colitis - received empiric abx but stool cultures and c diff neg
had flex/sig, biopsies;
concern for pseudomembrainous colitis but repeat c diff neg
now with new fever today, continued pain and abd dsitension
no vomiting
abd distended, febrile
nontoxic
no previous bowel surgeries
given poss of inflammatory vs. infecitous vs. ischemic colitis, will w/u with labs, ct.
[2024-01-21] MEDS: OMNIPAQUE 50 ML PO (17:27)
[2024-01-21 17:31] VITALS: BP 124/71
[2024-01-21 17:36] LABS: Lactic Acid 0.7 mmol/L (0.7-2.0)
[2024-01-21 17:37] LABS: Hematocrit 27.2 % (37.0-47.0); Hemoglobin 9.3 g/dL (12.0-16.0); Mean Corp Hgb Conc. 34.2 g/dL (33.0-37.0); Mean Corpuscular Hgb 32.3 pg (27.0-31.0); Mean Corpuscular Volume 94.4 fL (81.0-99.0); Mean Platelet Volume 8.5 fL (7.4-10.4); Platelet Count 680 10^3/uL (130-400); Red Blood Cell Count 2.88 10^6/uL (4.20-5.40); Red Cell Dist. Width 13.4 % (11.5-14.5); White Blood Cell Count 6.3 10^3/uL (4.8-10.8)
--- NOTE | 2024-01-21 17:46 | EDRN ---
Pt returned to [facility] to await a room at this time w/ both cups of omnipaque to drink.
[2024-01-21 17:48] LABS: ALT (SGPT) 23 U/L (0-35); AST (SGOT) 24 U/L (14-36); Albumin 3.2 g/dl (3.5-5.0); Alkaline Phosphatase 128 U/L (38-126); Blood Urea Nitrogen 12 mg/dl (7-17); Calcium 8.8 mg/dl (8.4-10.2); Carbon Dioxide 21 mmol/L (22-30); Glucose 124 mg/dl (70-99); Lipase 78 U/L (23-300); Total Bilirubin 0.3 mg/dl (0.2-1.3); Total Protein 6.1 g/dl (6.3-8.2); eGFR > 60.00
[2024-01-21 17:53] LABS: Chloride 97 mmol/L (98-107); Potassium 4.1 mmol/L (3.5-5.1); Sodium 132 mmol/L (135-145)
[2024-01-21 18:02] LABS: % Basophils 1.1 % (0-2); % Eosinophils 1.4 % (0-6); % Immature Granulocytes 0.6 % (0-0.5); % Lymphocytes 32.8 % (20.5-51.1); % Monocytes 17.5 % (1.7-9.3); % Neutrophils 46.6 % (42.2-75.2); Absolute Basophils 0.1 10^3/uL (0-0.2); Absolute Eosinophils 0.1 10^3/uL (0-0.7); Absolute Lymphocytes 2.1 10^3/uL (1.2-3.4); Absolute Monocytes 1.1 10^3/uL (0.1-0.6); Nucleated Red Blood Cells % 0 %
[2024-01-21 19:39] VITALS: BP 101/62
--- NOTE | 2024-01-21 20:55 | ED.GENMED ---
History of Present Illness
General
Chief Complaint: Abdominal Pain
Time Seen by Provider: 01/21/24 19:32
History of Present Illness
History of Present Illness:
63-year-old female presents to the emergency department for evaluation of worsening abdominal pain. She was admitted at the end of December for the same complaint, at that time was treated for colitis. Underwent biopsy on January 13 that showed
'severe active colitis highly suspicious for ulceration'. She was discharged on January 14. Returns with worsening pain and diarrhea.
Past History
Past History
ED Past Medical History: HTN, Hypercholesterolemia, Psychiatric (Anxiety, depression) and Other (Kidney stones, Migraines, UTI, )
ED Past Surgical History: Gynecological (Hysterectomy), Orthopedic (Knee arthroscopies, Left ankle plates and screws), Urological (Lithotripsy with stent) and Other (Gastric band surgery 10/31, Rhizotomy, )
Social History
Tobacco: Non-smoker
Alcohol: None
Personal:
Living: with family
Employment: Employed
Family History
Family History: Other (Noncontributory)
Review of Systems
Review of Systems
Allergies reviewed?: Yes
All Other Systems: ROS reviewed and negative except as documented in HPI and ROS
Phy Exam
Physical Exam
Physical Exam:
GEN: Well appearing, NAD, WDWN
HEENT: Oral mucosa moist, no scleral icterus
Cardiac: Regular rate
Lung: No respiratory distress, no tachypnea
Abdomen: Moderately tender to palpation all 4 quadrants worse in the lower [place]
MSK: No gross deformity or injuries
Skin: Good color, no pallor or jaundice, no rashes
Neuro: AO x3, moves all extremities freely
Psych: Calm, cooperative
Course
Orders/Labs/Results
Orders:
Orders
01/21/24 16:53
Acetaminophen [Tylenol] 1,000 mg .ROUTE .STK-MED ONE
01/21/24 16:55
Acetaminophen [Tylenol] 1,000 mg PO NOW STA
01/21/24 16:59
Stool Culture Urgent
JANE Source: Feces/Stool
Specimen Description:
01/21/24 17:00
Iohexol [Omnipaque] See Protocol PO NOW STA
01/21/24 17:01
CT Abd/pel W Iv And Oral Contr Urgent
Comment:
Reason For Exam: abd pain, distension, fever; recent colitis
01/21/24 17:11
Complete Blood Count/With Diff Urgent
Comprehensive Metabolic Panel Urgent
Lactic Acid Urgent
Lipase Urgent
Blood Culture Urgent
JANE Source: Blood/Venous
Specimen Description:
01/21/24 20:53
C DIFF [C difficile Antigen & Toxins] Urgent
JANE Source: Feces/Stool
Specimen Description:
01/21/24 21:01
0.9% Sodium Chloride 1000 ml [Nss] 1,000 ml IV BOLUS
01/21/24 21:08
Morphine Sulfate 4 mg IV NOW STA
01/21/24 21:49
0.9% Sodium Chloride 1000 ml [Nss] 1,000 ml IV BOLUS
01/21/24 21:59
Admit/Transfer Patient As Directed
Co-Sign Provider:
Level of Care: Inpatient admission
Assign to:: Medical/Surgical
Physician / Group: Sarita
Diagnosis: pancolitis
Reason for Hospitalization: pancolitis
Expected length of stay greater than two midnights?: Yes
ELOS- Estimated Length of Stay in days: 5
I certify the patient meets the requirements for IP care: Yes
PRN Pain Medication Management As Directed
May give lesser potent ordered pain med per pt: Yes
preference::
Protocol:: Medication orders for pain may be administered in a
manner that supports deferring to patient preference
when the pt is:
- Requesting an ordered lesser potent pain medication.
Least to most potent pain medications are defined
as: acetaminophen < NSAID < tramadol < opioids
(morphine, oxycodone, hydromorphone).
- Requesting a lesser dose of the same medication IF
ORDERED.
- Requesting a less intrusive route of administration
if both routes are prescribed by the provider (PO <
IV).
01/21/24 22:00
Code Status As Directed
Resuscitation Status: Do not resuscitate
Reached after discussion with pt or family/Healthcare POA: Yes
Ertapenem [Invanz] 1,000 mg 0.9% Sodium Chloride [Nss] 50 ml IV Q24H
01/21/24 22:03
DNR Bracelet Application ONCE
01/22/24 00:00
Vancomycin HCl [Firvanq] 125 mg PO Q6
Abnormal Lab Results
01/21/24
17:11
RBC 2.88 L 10^6/uL
(4.20-5.40)
Hgb 9.3 L g/dL
(12.0-16.0)
Hct 27.2 L %
(37.0-47.0)
MCH 32.3 H pg
(27.0-31.0)
Plt Count 680 H D 10^3/uL
(130-400)
Absolute Monos (auto) 1.1 H 10^3/uL
(0.1-0.6)
Immature Gran % 0.6 H %
(0-0.5)
Monocytes % 17.5 H %
(1.7-9.3)
Sodium 132 L mmol/L
(135-145)
Chloride 97 L mmol/L
(98-107)
Carbon Dioxide 21 L mmol/L
(22-30)
Glucose 124 H mg/dl
(70-99)
Alkaline Phosphatase 128 H U/L
(38-126)
Total Protein 6.1 L g/dl
(6.3-8.2)
Albumin 3.2 L g/dl
(3.5-5.0)
01/21/24 17:11
01/21/24 17:11
Vital Signs
Initial and Last Documented VS:
Initial Vital Signs
Temp Pulse Resp BP Pulse Ox
100.9 F H 109 16 125/76 96
01/21/24 16:46 01/21/24 16:46 01/21/24 16:46 01/21/24 16:46 01/21/24 16:46
Last Documented Vital Signs
Temp Pulse Resp BP Pulse Ox
100.9 F H 97 18 110/72 94
01/21/24 16:46 01/21/24 22:15 01/21/24 22:15 01/21/24 22:15 01/21/24 22:15
MDM/Problems Addressed
MDM/Problems Addressed:
Discussed case with gastroenterology, recommended against antibiotics and steroids at this juncture until stool cultures are sent. I also recommend waiting on steroids until GI consultation. Will admit to the hospitalist service for further
management
*Critical Care Note
Total Time (30-74mins, 75-104mins- exclusive of procedures): Not Applicable
ED Attending Note
-
Portions of this chart may have been created with voice recognition software.� Occasional wrong word or��sound alike� substitutions may have occurred due to the inherent limitations of voice recognition software.
Discharge Plan
Departure
Patient Disposition: Admit
Date of Disposition: 01/21/24
Time of Disposition: 21:00
Presentation/result/management discussed w/ accepting MD/DO: Hospitalist
Discharge Problem:
Colitis
Interventions
Interventions:
*Risk Screen - Suicide Last Done: 01/21/24 16:47
*General Assessment Last Done: 01/21/24 17:30
*Neglect/Abuse Screening Last Done: 01/21/24 16:47
ED- Fall Risk Assessment Last Done: 01/21/24 17:30
*ED COVID-19 Vaccine History Last Done: 01/21/24 17:30
*Nursing Disposition Last Done: 01/21/24 22:49
II-Uhfnsr-Psdtxpeyij Assessment Last Done: 01/21/24 19:35
[2024-01-21] MEDS: MORPHINE SULFATE 4 MG IV (21:12)
[2024-01-21] MEDS: NSS 1000 IV ×2 (21:13→22:09)
--- NOTE | 2024-01-21 21:22 | HPS.HSE ---
Family Physician
-
Family Physician: Karan Menjivar Jr.
Chief Complaint
-
Worsening abdominal pain and diarrhea
History of Present Illness
63 y/o F with PMHx:
Essential hypertension
Migraine headaches
Anxiety/Depression
Recent admission for pancolitis
who p/w CC worsening abdominal pain and diarrhea. Patient reports since discharge she has had persistent diarrhea. She denies any mucus in the diarrhea, melena, medic easier. She has had abdominal pain. Denies vomiting. Today she went to her
primary care physician's office and had a fever of 102 �F. She was told to come to the ER. Patient denies any change in her appetite or poor oral intake. She denies chest pain, shortness of breath, headache, neck stiffness, visual disturbances,
rash, dysuria, focal neurological deficit.
Medical History
Past Medical History
Past Medical History: Reports Other (as per HPI)
Past Surgical History: Reports Other (N/A)
Social History
Tobacco: Non-smoker
Alcohol: None
Drug: None
Family History
Family History: Not pertinent
Allergies / Home Medications
Allergies reflects when Allergies were last updated in [facility].
Home Medications with original date entered in [facility]
Allergy/Medication List:
Allergies
Allergy/AdvReac Type Severity Reaction Status Date / Time
CAIO Inhibitors Allergy Anaphylaxis Verified 01/06/24 19:14
latex Allergy WELTS Verified 01/06/24 19:14
Home Medications
risperidone 1 mg tablet 2 mg PO DAILY Mental Health/Anxiety 06/28/14
tizanidine 4 mg tablet 16 mg PO HS Muscle Spasms 06/28/14
amlodipine 5 mg tablet 5 mg PO DAILY Blood Pressure 10/06/17
diphenhydramine HCl 25 mg capsule (Banophen) 50 mg PO HS anti-histamine 10/06/17
mirabegron 50 mg tablet,extended release 24 hr (Myrbetriq) 50 mg PO DAILY Urinary Issue 10/06/17
lamotrigine 100 mg tablet 100 mg PO DAILY Seizures 10/27/19
lamotrigine 150 mg tablet (Lamictal) 150 mg PO DAILY Seizures 10/27/19
lorazepam 0.5 mg tablet 1 mg PO HS anxiety 10/27/19
risperidone 2 mg tablet 4 mg PO HS Mental Health/Anxiety 10/27/19
venlafaxine 225 mg tablet,extended release 24 hr 225 mg PO DAILY Depression 10/27/19
zaleplon 10 mg capsule 10 mg PO HS Sleep 10/27/19
zolpidem 5 mg tablet 5 mg PO HS Sleep 10/27/19
eletriptan 40 mg tablet 40 mg PO DAILYPRN PRN migraine 01/21/24
galcanezumab-gnlm 120 mg/mL subcutaneous pen injector (Emgality Pen) 120 mg SC QMONTH 01/21/24
hydrocodone 5 mg-acetaminophen 325 mg tablet 1 tab PO Q6HPRN PRN severe pain 01/21/24
meperidine 50 mg/5 mL oral solution 50 mg PO Q8HPRN PRN severe pain 01/21/24
valacyclovir 500 mg tablet 500 mg PO DAILYPRN PRN viral infection 01/21/24
Review of Systems
-
History Source: Patient
A 12 point ROS was completed and negative except as noted: Yes
Physical Exam
Vital Signs
Vital Signs
Temp Pulse Resp BP Pulse Ox
100.9 F H 104 20 101/62 94
01/21/24 16:46 01/21/24 19:39 01/21/24 19:39 01/21/24 19:39 01/21/24 19:39
Physical Exam
General: Other (.)
Laboratory Results
-
01/21/24 17:11
01/21/24 17:11
Laboratory Results
Lactic Acid 0.7 mmol/L (0.7-2.0) 01/21/24 17:11
Total Bilirubin 0.3 mg/dl (0.2-1.3) 01/21/24 17:11
AST 24 U/L (14-36) 01/21/24 17:11
ALT 23 U/L (0-35) 01/21/24 17:11
Alkaline Phosphatase 128 U/L (38-126) H 01/21/24 17:11
Lipase 78 U/L (23-300) 01/21/24 17:11
Impression/Plan
-
Gen: NAD, AAOx3.
Eyes: EOMI, PERRLA, no scleral icterus.
Neck: supple.
CV: RRR, +S1/S2, no m/r/g.
Resp: CTAB, no rales, wheezes, or rhonchi.
Abd: +BS, soft, diffuse TTP, mild-mod distention
Skin: No rashes.
Neuro: CN 2-12 intact, non-focal.
Psych: Normal mood and affect.
CT A/P w/IV+PO: Progressive colitis, most pronounced involving the transverse colon. No evidence of pneumatosis. No free air or perforation. No focal collection or abscess. No evidence of bowel obstruction.
Progressive pancolitis, most pronounced in the transverse colon:
-recent hospitalization with sigmoidoscopy with random colon biopsy showing active colitis, severe, with crypt abscess formation and focal areas of purulent material highly suggestive of ulceration
-received abx during prior hospitalization, was not discharged on abx
-Stool studies including C. difficile testing on prior admission were negative
-There was concern that the patient's colitis was possibly due to Ozempic
-currently the pt is febrile and hypotensive. Stool studies ordered but in the meantime antibiotics should not be held in my clinical judgment. Will give Invanz 1g daily. Will also give empiric PO Vanco.
-c/s GI and ID
-pt given 1L NS in ER. Will give another 1L NS followed by NS @ 125cc/hr
Other problems:
Essential hypertension: hold antihypertensives
Migraine headaches: Triptan PRN
Anxiety/Depression: cont Lamictal/Risperdal
DNR - confirmed with the pt in the ER
Lovenox
[2024-01-21 22:15] VITALS: BP 110/72
[2024-01-21] MEDS: INVANZ 60 MG IV (22:41)
[2024-01-21 23:23] VITALS: BMI 24.1
[2024-01-21 23:56] VITALS: BP 140/67
[2024-01-22] MEDS: ATIVAN 1 MG PO ×2 (00:26→21:26)
[2024-01-22] MEDS: NSS 1000 IV ×3 (00:27→16:10)
[2024-01-22] MEDS: RISPERDAL 4 MG PO ×2 (00:27→21:27)
[2024-01-22] MEDS: ZANAFLEX 16 MG PO ×2 (00:27→21:27)
[2024-01-22] MEDS: BENADRYL 50 MG PO ×2 (00:28→21:27)
[2024-01-22] MEDS: MORPHINE SULFATE 2 MG IV (01:54)
[2024-01-22] MEDS: FIRVANQ 125 MG PO ×5 (01:54→23:43)
[2024-01-22 07:45] VITALS: BP 127/64
[2024-01-22] MEDS: MORPHINE SULFATE 1 MG IV (07:49)
[2024-01-22 08:21] LABS: Hematocrit 22.3 % (37.0-47.0); Hemoglobin 7.7 g/dL (12.0-16.0); Mean Corp Hgb Conc. 34.5 g/dL (33.0-37.0); Mean Corpuscular Hgb 32.8 pg (27.0-31.0); Mean Corpuscular Volume 94.9 fL (81.0-99.0); Mean Platelet Volume 8.6 fL (7.4-10.4); Platelet Count 582 10^3/uL (130-400); Red Blood Cell Count 2.35 10^6/uL (4.20-5.40); Red Cell Dist. Width 13.6 % (11.5-14.5)
[2024-01-22 08:45] LABS: Blood Urea Nitrogen 10 mg/dl (7-17); Carbon Dioxide 22 mmol/L (22-30); Chloride 103 mmol/L (98-107); Estimated Creatinine Clearance 66 ml/min; Glucose 114 mg/dl (70-99); Potassium 4.7 mmol/L (3.5-5.1); Sodium 136 mmol/L (135-145); eGFR > 60.00
--- NOTE | 2024-01-22 08:45 | VATNOTE ---
During routine assessment, noted that IV catheter was not fully advanced. Approximately 0.25' not advanced. Pt refusing IV restart at this time. Pt educated on the signs and symptoms of infiltrated and to call immediately if she experiences any.
Verbalizes understanding.
[2024-01-22] MEDS: LAMICTAL 250 MG PO (08:53)
[2024-01-22] MEDS: EFFEXOR XR 150 MG PO (08:53)
[2024-01-22] MEDS: RISPERDAL 2 MG PO (08:53)
[2024-01-22] MEDS: DETROL LA 4 MG PO (08:53)
[2024-01-22] MEDS: EFFEXOR XR 75 MG PO (08:53)
[2024-01-22 09:28] LABS: Hepatitis C Antibody Negative (Negative)
--- NOTE | 2024-01-22 10:51 | CON.ID ---
Consultation
-
Date/Time Consultation Requested: 01/21/24 22:58
Date/Time Consultation Performed: 01/22/24 10:51
Requesting Provider: Dr Stein
Performing Provider: Dr Weems
Reason for Consultation: pancolitis
Chief Complaint / Past History
Chief Complaint
Worsening abdominal pain and diarrhea
History of Present Illness
Ms Breen is a 63 year old female with history of gastric band 10/2014, BMI currently 24, migraines who first presented here 01/06 (about 2 weeks ago) for diarrhea, abdominal pain and migraine. Reports intentional weight loss with ozempic (taken
for 3 months) which was stopped 5 weeks before that presentation (now 7 weeks). Reports she initially had constipation and took an enema then with diarrhea with some blood and new, severe abdominal pain x24 hours. No black stools or vomiting.
Previous colonoscopy 2015 was normal. No previous history of colitis. Also with frequent NSAID use for migraines. Course was notable for hgb dropt from 13.8 to 11.2 on admission, TORY with Cr 2.1, tachycardia and hypotesnion. CT a/p with
pancolitis and ileus, distended gallbladder without stones. She underwent flex sig findings suggestive of pseudomembranous colitis, signs of ulcerations and erythema - second C diff sample was sent and remained negative, biopsie taken and
consistent with chronic colitis. ALso noted to have asymptomatic bacteriuria, patient was on empiric zosyn for colitis. Patient was discharged with a low residual diet. Followed up with PCP for worsening abdominal pain and diarrhea. no vomiting,
no blood or mucus in the stool. In the office she had a fever to 102 and was referred to the ER.
She had daily valacyclovir ordered PRN
Since arrival here tmax 100.9, bp stable, wbc 6.3 on arrival and 6.0 today, hgb 7.7, plt 582, no left shift, cr 0.8, na 136, lactic acid 0.7, t bili 0.3, ast 24, alt 23, alk phos 128, CT a/p progression of transverse colitis, single blood culture
was sent and no growth to date, patient is currently on ertapenem and oral vancomycin.
Past History
Additional Past Medical History:
HTN, Psychiatric (anxiety/depression) and Other (renal stones, migraines, UTI)
Additional Past Surgical History:
Gynecological (hysterectomy), Urological (lithotripsy and stent ) and Other (gastric band surgery , Rhizotomy)
Allergy History:
CAIO Inhibitors Allergy (Verified 01/06/24 19:14)
Anaphylaxis
latex Allergy (Verified 01/06/24 19:14)
WELTS
Medications Reviewed: Yes
Social History
Tobacco: Non-Smoker
Alcohol: None
Drug: None
Family History
Family History: Not Pertinent
Review of Systems
Review of Systems
General: Negative Fever or Chills
All systems: All other systems were reviewed and were negative
Vital Signs
Temp Pulse Resp BP Pulse Ox
98.9 F 65 20 127/64 96
01/22/24 07:45 01/22/24 07:45 01/22/24 07:45 01/22/24 07:45 01/22/24 07:45
Physical Exam
Physical Exam
Constitutional: No Acute Distress and Chronically Ill
Cardiovascular: Regular Rate and S1/S2; Negative Murmur or Rub
Pulmonary: Clear and Symmetric; Negative Wheezes, Rales or Rhonchi
Gastrointestinal: Soft, Non Tender, Non Distended and Normal Bowel Sounds
Skin: Warm and Dry; Negative Rash or Jaundice
Lab / Diagnostic Study Results
01/22/24 07:19
01/22/24 07:19
Abs Immat Gran (auto) 0.0 10^3/uL (0-0.05) 01/21/24 17:11
Absolute Neuts (auto) 3.0 10^3/uL (1.4-6.5) 01/21/24 17:11
Absolute Lymphs (auto) 2.1 10^3/uL (1.2-3.4) 01/21/24 17:11
Absolute Monos (auto) 1.1 10^3/uL (0.1-0.6) H 01/21/24 17:11
Absolute Basos (auto) 0.1 10^3/uL (0-0.2) 01/21/24 17:11
Immature Gran % 0.6 % (0-0.5) H 01/21/24 17:11
Neutrophils % 46.6 % (42.2-75.2) 01/21/24 17:11
Lymphocytes % 32.8 % (20.5-51.1) 01/21/24 17:11
Monocytes % 17.5 % (1.7-9.3) H 01/21/24 17:11
Eosinophils % 1.4 % (0-6) 01/21/24 17:11
Basophils % 1.1 % (0-2) 01/21/24 17:11
Lactic Acid 0.7 mmol/L (0.7-2.0) 01/21/24 17:11
Microbiology Results
Micro:
01/21/24 17:11 Blood Culture - Pending
Blood/Venous
Assessment / Plan
Pancolitis
Persistent diarrhea - 2 weeks
Fever
- progressing transverse colitis based on CT scan; initially pancolitis which is not typically ischemic
- C Diff negative 01/13 and 01/06; I would repeat once given progression, no need for isolation at this time in my opinion
- giardia and crypto negative 01/06; stool culture negative 01/06
- single blood culture was sent, low yield, I do not recommend further blood cultures at this time
- note recent travel to [place]
- with time course of >2 weeks typical causes of prolonged diarrhea in immunocompetent patients (giardia, crypto) already ruled out; suspect inflammatory cause. No objection to steroids (systemic or enteral) from ID perspective
- stopped ertapenem, unlikely to have significant benefit and there are risks of continuing (dysbiosis, eventual development of c diff etc)
- will follow up tb screen, hep b per gi
- continue oral vanc pending repeat C diff screen today
- last dose of ozempic was 7 weeks ago; agree that would not resume it
- follow clinically
--- NOTE | 2024-01-22 10:53 | CON.GI ---
Addendum entered and electronically signed by Channing Walsh MD 01/22/24 17:28:
I saw and examined the patient.
The PA's note was reviewed and I agree with the note.
Comment:
The patient is a 63 year old female who recently p/w severe pancolitis returning with the same.
Impression / Rec:
1. Colitis - on previous admission had CT which showed pancolitis with -ve stool studies. CRP elevated to 80.50, ESR 52, and fecal orville 407. Flex sig on 01/10 showed erythematous ulcerated mucosa in desc/sig colon, rectum spared; bx with severe
active colitis w/ crypt abscess, mild/mod architectural distortion compatible with chronic colitis. She was d/c'ed home but returned with fever and abdo pain/diarrhea. Repeat CT showed thickening of transv colon extending from hep flx to splenic
flx. Febrile at 102 on admission, no leukocytosis. No BM since admission. Flx sig result/bx result are suggestive of ? IBD/Crohn's colitis, but she had multiple episodes of fever (at home/in ER). Repeat stool studies/blood cx are pending.
Already started on empirical PO vanco. Will need to consider starting/trial of steroids.
Addendum entered and electronically signed by CALLIE Babb 01/22/24 13:15:
will add hepatitis B and TB testing
Original Note:
Consultation
-
Date/Time Consultation Requested: 01/22/240
Date/Time Consultation Performed: 01/23/24 1045
Requesting Provider: Woody Stein MD
Performing Provider: CALLIE Conde, Nico Snell MD
Reason for Consultation: colitis
Medical History
Chief Complaint / HPI
Chief Complaint: abdominal pain, fever, distention
History of Present Illness:
Pt is a 63yo with hx HTN, anxiety, depression, gastric lap band surgery, hysterectomy, renal stones, migraines with new Emgality, wt loss with recent Ozempic use with recent admission 01/06-29 with severe pancolitis with no hx prior bowel issues but
recent travel to [place] at end of November to December. On that admission Ct with oral contrast only with concern for colonic wall thickening-pancolitis and noted distended GB without stones. She was initially noted with tachycardia, hypotension with
guarding on exam with distention, TORY, and consultation with colorectal surgery with concern for infectious, vs ischemic vs IBD. Stool studies neg. She was noted with CRP up to 80.50 with drop to 56.9, ESR 52 and fecal orville 407. She completed
flex sig 01/10 with fair prep with non bleeding hemorrhoids, erythematous yellow ulcerated mucosa bx with severe active colitis with change of possible chronic colitis. She admits to slow improvement but still symptoms on discharge but wanted to go
home. She had recent follow up with PCP and directed back to ER for eval as continued pain, fever and diarrhea. Repeat CT with Progressive colitis, most pronounced involving the transverse colon. No evidence of pneumatosis. No free air or
perforation. No focal collection or abscess. No evidence of bowel obstruction. hx NSAID use for migraines.
She admits pain was 9/10 first admission now 7/10. She had 10 + BM daily prior to admission without blood. She admits to fever up to 102, but denies dysphagia, GERD, nausea, vomiting, wt loss since illness but noted prior to Ozempic or
constipation. hx full Colonoscopy: 2015 [facility], otherwise normal.
Past Medical History
Past Medical History: HTN, Psychiatric (anxiety/depression) and Other (renal stones, migraines, UTI)
Past Surgical History: Gynecological (hysterectomy), Urological (lithotripsy and stent ) and Other (gastric band surgery , Rhizotomy)
Social History
Tobacco: Non-Smoker
Alcohol: None
Drug: None
Personal:
Living: With Family
Employment: Employed
Family History
Family History: Other (no family hx colon CA or polyps, no family hx IBD)
Allergies / Home Medications
Allergy/AdvReac Type Severity Reaction Status Date / Time
CAIO Inhibitors Allergy Anaphylaxis Verified 01/06/24 19:14
latex Allergy WELTS Verified 01/06/24 19:14
�Medication �Instructions �Recorded
risperidone 1 mg tablet 2 mg PO DAILY Mental Health/Anxiety 06/28/14
tizanidine 4 mg tablet 16 mg PO HS Muscle Spasms 06/28/14
amlodipine 5 mg tablet 5 mg PO DAILY Blood Pressure 10/06/17
diphenhydramine HCl 25 mg capsule 50 mg PO HS anti-histamine 10/06/17
(Banophen)
mirabegron 50 mg tablet,extended 50 mg PO DAILY Urinary Issue 10/06/17
release 24 hr (Myrbetriq)
lamotrigine 100 mg tablet 100 mg PO DAILY Seizures 10/27/19
lamotrigine 150 mg tablet 150 mg PO DAILY Seizures 10/27/19
(Lamictal)
lorazepam 0.5 mg tablet 1 mg PO HS anxiety 10/27/19
risperidone 2 mg tablet 4 mg PO HS Mental Health/Anxiety 10/27/19
venlafaxine 225 mg tablet,extended 225 mg PO DAILY Depression 10/27/19
release 24 hr
zaleplon 10 mg capsule 10 mg PO HS Sleep 10/27/19
zolpidem 5 mg tablet 5 mg PO HS Sleep 10/27/19
eletriptan 40 mg tablet 40 mg PO DAILYPRN PRN migraine 01/21/24
galcanezumab-gnlm 120 mg/mL 120 mg SC QMONTH 01/21/24
subcutaneous pen injector
(Emgality Pen)
hydrocodone 5 mg-acetaminophen 325 1 tab PO Q6HPRN PRN severe pain 01/21/24
mg tablet
meperidine 50 mg/5 mL oral solution 50 mg PO Q8HPRN PRN severe pain 01/21/24
valacyclovir 500 mg tablet 500 mg PO DAILYPRN PRN viral 01/21/24
infection
Review of Systems
-
History Source: Patient
Constitutional: Reports Weight Loss ( 20 lb with Ozempic use)
EENT: Reports No Symptoms
Respiratory: Reports No Symptoms
Cardiac: Reports No Symptoms
Abdomen/GI: Reports Abdominal Pain, Diarrhea and Bloody Stools (prior to last admission now brown loose stools )
: Reports Other (? current UTI)
Musculoskeletal: Reports No Symptoms
Skin: Reports No Symptoms
Neurological: Reports Weakness
Endocrine: Reports No Symptoms
Vital Signs
Temp Pulse Resp BP Pulse Ox
98.9 F 65 20 127/64 96
01/22/24 07:45 01/22/24 07:45 01/22/24 07:45 01/22/24 07:45 01/22/24 07:45
Physical Exam
Exam
General: Well Developed, Well Nourished and No Apparent Distress
HEENT: Normocephalic and Anicteric
Respiratory: Clear
Cardiac: Regular Rhythm
GI: Soft, Tender (diffuse ) and Distended (mild )
Musculoskeletal: No Clubbing and No Cyanosis
Skin: Warm and Dry
Neuro: Awake, Alert and AO x 3
Psych: Calm
Results
WBC 6.0 10^3/uL (4.8-10.8) 01/22/24 07:19
Hgb 7.7 g/dL (12.0-16.0) L 01/22/24 07:19
Hct 22.3 % (37.0-47.0) L 01/22/24 07:19
MCV 94.9 fL (81.0-99.0) 01/22/24 07:19
Plt Count 582 10^3/uL (130-400) H 01/22/24 07:19
Absolute Neuts (auto) 3.0 10^3/uL (1.4-6.5) 01/21/24 17:11
Sodium 136 mmol/L (135-145) 01/22/24 07:19
Potassium 4.7 mmol/L (3.5-5.1) 01/22/24 07:19
Chloride 103 mmol/L (98-107) 01/22/24 07:19
Carbon Dioxide 22 mmol/L (22-30) 01/22/24 07:19
BUN 10 mg/dl (7-17) 01/22/24 07:19
Creatinine 0.8 mg/dL (0.6-1.0) 01/22/24 07:19
Calcium 8.0 mg/dl (8.4-10.2) L 01/22/24 07:19
Total Bilirubin 0.3 mg/dl (0.2-1.3) 01/21/24 17:11
AST 24 U/L (14-36) 01/21/24 17:11
ALT 23 U/L (0-35) 01/21/24 17:11
Alkaline Phosphatase 128 U/L (38-126) H 01/21/24 17:11
Lipase 78 U/L (23-300) 01/21/24 17:11
Hepatitis C Antibody Negative (Negative) 01/22/24 07:19
Diagnostic Image Results:
01/06/24 CT A/P oral only
1. Diffuse colonic wall thickening likely related to an infectious or inflammatory pancolitis. Overall somewhat limited evaluation in the absence of intravenous contrast.
2. Distended gallbladder without radiopaque gallstones by CT. A follow-up abdominal ultrasound could be considered if clinically indicated.
01/10/24 CT Abd/pel W Iv And Oral Contr
IMPRESSION: Small bilateral pleural effusions, new since prior CT examination. Adjacent compressive atelectasis.
Findings compatible with colitis, contiguous involvement from the superior right colon through the rectum. There is interval increase in gaseous distention of the colon, particularly the transverse colon, measurements given above. No evidence for
free intraperitoneal air. No evidence for pneumatosis.
Dilated air and fluid-filled loops of small bowel, most likely an adynamic ileus.
Distended gallbladder with no evidence for gallstones. No evidence for biliary ductal dilation.
2 mm nephrolith in the upper right kidney.
Moderate subcutaneous edema, mainly laterally bilaterally.
01/11/24 US abdomen
IMPRESSION: Small bilateral pleural effusions.
Nonvisualization of the common bile duct and pancreas.
01/12/24 abd
IMPRESSION: Moderate small bowel dilatation with air-fluid levels concerning for developing small bowel obstruction. Ileus not excluded. Stable.
01/13/24 abd
No evidence of intestinal obstruction. Probable mild small bowel ileus. Stable
01/21/24 CT Abd/pel W Iv And Oral Contr
Progressive colitis, most pronounced involving the transverse colon. No evidence of pneumatosis. No free air or perforation. No focal collection or abscess. No evidence of bowel obstruction.
Prior GI Procedures:
EGD: none
Colonoscopy: 2015 [facility], otherwise normal
01/11/24 flex - do - Preparation of the colon was fair.
- Non-bleeding internal hemorrhoids.
- Erythematous, yellow ulcerated mucosa in the entire
examined colon from sigmoid to descending colon.
Biopsied. Rectum appeared norm
path with active colitis, sever with cypt abscess formation with focal area of purulent material suggest ulceration with concern for chronic coliitis.
Assessment / Plan
-
Pt is a 63yo with hx HTN, anxiety, depression, gastric lap band surgery, hysterectomy, renal stones, migraines with new Emgality, wt loss with recent Ozempic use with recent admission 01/06- with severe pancolitis with no hx prior bowel issues but
recent travel to [place] at end of November to December. On that admission Ct with oral contrast only with concern for colonic wall thickening-pancolitis and noted distended GB without stones. She was initially noted with tachycardia, hypotension with
guarding on exam with distention, TORY and consultation with colorectal surgery with concern for infectious, vs ischemic vs IBD. Stool studies neg. She was noted with CRP up to 80.50 with drop to 56.9, ESR 52 and fecal orville 407. She completed flex
sig 01/10 with fair prep with non bleeding hemorrhoids, erythematous yellow ulcerated mucosa bx with severe active colitis change of possible chronic colitis. She admits to slow improvement but still symptoms on discharge but wanted to go home. She
had recent follow up with PCP and directed back to ER for eval as continued pain, fever and diarrhea. Repeat CT with Progressive colitis, most pronounced involving the transverse colon. No evidence of pneumatosis. No free air or perforation. No
focal collection or abscess. No evidence of bowel obstruction. hx NSAID use for migraines.
-severe pancolitis
-fever
-01/10 flex with severe active colitis with change of chronic colitis
-anemia
-thrombocytosis
-TORY last admission now improved
-hyponatremia
-recent travel to [place] December 07- December 21
-recent wt loss with Ozempic use
-migraine with new Emgality 4month ago and frequent NSAID use
-hx renal stones
-gastric lap band
-hysterectomy
-HTN
-anxiety/depression
PLAN:
Etiology of pancolitis related to infectious etiology with travel vs concern for possible chronic colitis though not chronic symptoms
overall less distended with slightly less pain and guarding than noted last admission
work up for fever
ok for clear diet with supplement
empiric vanco/Ertapenem started on admission with fever
add CRP and ESR to trend from last admission
will review path with MD as may need to consider further rx with steroids/biologic therapy
cont Lovenox as high risk for DVT with severe active colitis
s/p colorectal evaluation last admission -if worsening symptoms may need reconsult
trend CBC with anemia and thrombocytosis
close follow
-
-
Thank you for consultation and allowing me to participate in the patient's care. Please call the health occupations instructor GI physician during the after hours with any questions or concerns.
--- NOTE | 2024-01-22 11:34 | W.PN.HOSP.TC ---
Today's Communication/Plan
-
see bold
Assessment / Plan
Assessment / Plan
Gen: NAD, AAOx3.
Eyes: EOMI, PERRLA, no scleral icterus.
Neck: supple.
CV: remains RRR, +S1/S2, no m/r/g.
Resp: remains CTAB, no rales, wheezes, or rhonchi.
Abd: remains +BS, soft, diffuse TTP, mild-mod distention
Skin: No rashes.
Neuro: CN 2-12 intact, non-focal.
Psych: Normal mood and affect.
CT A/P w/IV+PO: Progressive colitis, most pronounced involving the transverse colon. No evidence of pneumatosis. No free air or perforation. No focal collection or abscess. No evidence of bowel obstruction.
Progressive pancolitis, most pronounced in the transverse colon:
-Sepsis, POA, due to pancolitis
-recent hospitalization with sigmoidoscopy with random colon biopsy showing active colitis, severe, with crypt abscess formation and focal areas of purulent material highly suggestive of ulceration
-received abx during prior hospitalization, was not discharged on abx
-Stool studies including C. difficile testing on prior admission were negative
-There was concern that the patient's colitis was possibly due to Ozempic
-on admission the pt was febrile and hypotensive. Stool studies ordered but in the meantime antibiotics were started based on my clinical judgment at the time. Cont Invanz/PO Vanco.
-c/s GI and ID
-s/p 2L NS on admission, cont NS @ 125cc/hr
Other problems:
Essential hypertension: holding antihypertensives
Migraine headaches: Triptan PRN
Anxiety/Depression: cont Lamictal/Risperdal/Effexor
DNR - confirmed with the pt in the ER
Lovenox
Anticipated Discharge: > 48 hours
Subjective/Interval History
-
Date of Service: January 22, 2024
Still with diarrhea and abdominal pain.
Objective Data
-
Labs:
Laboratory Results
01/22/24
07:19
WBC 6.0
Hgb 7.7 L
Hct 22.3 L
Plt Count 582 H
Sodium 136
Potassium 4.7
Chloride 103
Carbon Dioxide 22
BUN 10
Creatinine 0.8
Glucose 114 H
Calcium 8.0 L
Vital Signs:
Vital Signs
Temp Pulse Resp BP Pulse Ox
98.9 F 65 20 127/64 96
01/22/24 07:45 01/22/24 07:45 01/22/24 07:45 01/22/24 07:45 01/22/24 07:45
I&O
01/21/24 01/22/24 01/23/24
06:59 06:59 06:59
Intake Total 970 / 970
Balance 970 / 970
[2024-01-22] MEDS: MORPHINE ORAL SOLUTION 5 MG PO (11:47)
[2024-01-22] MEDS: DILAUDID 1 MG IV ×2 (14:08→17:14)
[2024-01-22 14:51] LABS: Erythrocyte Sed Rate 46 mm/hour (0-20)
[2024-01-22 16:08] VITALS: BP 132/68
--- NOTE | 2024-01-22 16:22 | CM ---
Patient seen bedside.
IA completed.
patient lives with spouse in a 2 story home.
Independent prior to admission.
works and drives.
Denies home care needs.
PCP: Dr Menjivar
Pharmacy: [facility]
Plan: home no needs anticipated.
[2024-01-22] MEDS: LOVENOX 40 MG SC (18:20)
[2024-01-22] MEDS: ZOFRAN 4 MG IV (18:33)
[2024-01-22] MEDS: TYLENOL 650 MG PO (18:39)
[2024-01-22] MEDS: NON-FORMULARY ITEM 1 UNIT PO (22:12)
[2024-01-22 23:30] VITALS: BP 117/58
[2024-01-23] MEDS: NSS 1000 IV ×4 (00:12→23:28)
[2024-01-23] MEDS: FIRVANQ 125 MG PO ×2 (06:48→11:48)
[2024-01-23 07:40] VITALS: BP 120/59
[2024-01-23] MEDS: DETROL LA 4 MG PO (08:38)
[2024-01-23] MEDS: EFFEXOR XR 75 MG PO (08:38)
[2024-01-23] MEDS: RISPERDAL 2 MG PO (08:38)
[2024-01-23] MEDS: LAMICTAL 250 MG PO (08:39)
[2024-01-23] MEDS: EFFEXOR XR 150 MG PO (08:39)
[2024-01-23 09:03] LABS: Hematocrit 22.1 % (37.0-47.0); Hemoglobin 7.6 g/dL (12.0-16.0); Mean Corp Hgb Conc. 34.4 g/dL (33.0-37.0); Mean Corpuscular Hgb 31.8 pg (27.0-31.0); Mean Corpuscular Volume 92.5 fL (81.0-99.0); Mean Platelet Volume 8.4 fL (7.4-10.4); Platelet Count 589 10^3/uL (130-400); Red Blood Cell Count 2.39 10^6/uL (4.20-5.40); Red Cell Dist. Width 14.1 % (11.5-14.5); White Blood Cell Count 6.7 10^3/uL (4.8-10.8)
[2024-01-23] MEDS: DILAUDID 1 MG IV ×4 (09:30→21:04)
[2024-01-23 09:34] LABS: Blood Urea Nitrogen 8 mg/dl (7-17); Carbon Dioxide 22 mmol/L (22-30); Chloride 105 mmol/L (98-107); Estimated Creatinine Clearance 66 ml/min; Glucose 119 mg/dl (70-99); Potassium 4.3 mmol/L (3.5-5.1); Sodium 136 mmol/L (135-145); eGFR > 60.00
[2024-01-23 09:48] LABS: Hepatitis B Surface Antigen Negative (Negative)
--- NOTE | 2024-01-23 09:52 | W.PN.GI.CBS2 ---
Today's Communication / Plan
-
Start steroids
Assessment / Plan
-
Vandana is a 63 y.o. female with recent hospital admission for diarrhea and abdominal pain s/p flex sig with Dr. Castillo on 01/10 with endoscopic concerns for pseudomembranous colitis with initial improvement who returns with persistent symptoms.
--Flex Sig (01/11/24): erythematous ulcerated mucosa in desc/sig colon, rectum spared; bx with severe active colitis w/ crypt abscess, mild/mod architectural distortion compatible with chronic colitis.
--01/06/24 CT A/P oral only: Diffuse colonic wall thickening likely related to an infectious or inflammatory pancolitis. Overall somewhat limited evaluation in the absence of intravenous contrast.
--01/10/24 CT Abd/pel W Iv And Oral Contr: Findings compatible with colitis, contiguous involvement from the superior right colon through the rectum. There is interval increase in gaseous distention of the colon, particularly the transverse colon,
measurements given above. No evidence for free intraperitoneal air. No evidence for pneumatosis. Dilated air and fluid-filled loops of small bowel, most likely an adynamic ileus.
--01/21/24 CT Abd/pel W Iv And Oral Contr: Progressive colitis, most pronounced involving the transverse colon.
CRP 80.5 --> 70.50 --> 55.90 --> 56.90 --> 149.70
C.diff negative x3, Repeat stool cultures pending. Initially placed on ertapenem and PO vanc as was febrile on arrival, however, no leukocytosis and has not had any fevers since that time, ertapenem discontinued, currently on PO vanc.
Her presentation is not consistent with inflammatory bowel disease given the acuity of her symptoms, however, pathology does show chronicity and with progressing colitis on imaging I am concerned that this truly represents inflammatory bowel
disease, more specifically Crohn's, given rectal sparing on her recent flexible sigmoidoscopy with Dr. Castillo. I appreciate infectious disease input, will ask about utility in sending C. difficile PCR, however, given ongoing symptoms and concern and
progressive colitis on imaging will start steroids at this time and obtain prebiologic labs.
Plan:
-check TB, hepatitis serologies, fecal calprotectin
-Start Solumedrol 20mg q8hrs
-trend CRP
-if worsening pain or distension, obtain stat abdominal film
-defer to ID on stopping Vanc-- given multiple negative tests, seems reasonable to stop
Subjective
Subjective
Date of Service: January 23, 2024
Patient reports 5 episodes of diarrhea overnight, still having a significant amount of discomfort. She did total of 7 bowel movements in the last 24 hours. Repeat C. difficile testing is negative, repeat stool cultures pending.
Objective
Data Reviewed
Laboratory Data:
Laboratory Results
01/23/24 08:45
01/23/24 08:45
Laboratory Results
Magnesium 2.0 mg/dl (1.6-2.3) 01/22/24 07:19
Total Bilirubin 0.3 mg/dl (0.2-1.3) 01/21/24 17:11
AST 24 U/L (14-36) 01/21/24 17:11
ALT 23 U/L (0-35) 01/21/24 17:11
Alkaline Phosphatase 128 U/L (38-126) H 01/21/24 17:11
Lipase 78 U/L (23-300) 01/21/24 17:11
Vital Signs and I&O:
Vital Signs
Temp Pulse Resp BP Pulse Ox
99.6 F 74 20 120/59 92
01/23/24 07:40 01/23/24 07:40 01/23/24 07:40 01/23/24 07:40 01/23/24 07:40
I&O
01/22/24 01/23/24 01/24/24
06:59 06:59 06:59
Intake Total 2470 / 2470
Balance 2470 / 2470
[2024-01-23 10:06] LABS: Hepatitis B Core Ab, Total Negative (Negative); Hepatitis B Surface Antibody Negative
[2024-01-23 10:11] LABS: Hepatitis B Core Ab, IgM Negative (Negative)
--- NOTE | 2024-01-23 12:44 | W.PN.HOSP.TC ---
Today's Communication/Plan
-
see bold
Assessment / Plan
Assessment / Plan
Gen: NAD, AAOx3.
Eyes: EOMI, PERRLA, no scleral icterus.
Neck: supple.
CV: continues to remain RRR, +S1/S2, no m/r/g.
Resp: continues to remain CTAB, no rales, wheezes, or rhonchi.
Abd: continues to remain +BS, soft, diffuse TTP, mild-mod distention
Skin: No rashes.
Neuro: CN 2-12 intact, non-focal.
Psych: Normal mood and affect.
CT A/P w/IV+PO: Progressive colitis, most pronounced involving the transverse colon. No evidence of pneumatosis. No free air or perforation. No focal collection or abscess. No evidence of bowel obstruction.
Progressive pancolitis, most pronounced in the transverse colon:
-Sepsis, POA, due to pancolitis
-recent hospitalization with sigmoidoscopy with random colon biopsy showing active colitis, severe, with crypt abscess formation and focal areas of purulent material highly suggestive of ulceration
-received abx during prior hospitalization, was not discharged on abx
-Stool studies including C. difficile testing on prior admission were negative
-on admission the pt was febrile and hypotensive. Stool studies ordered but in the meantime antibiotics (IV Invanz/PO Vanco) were started based on my clinical judgment at the time.
-GI saw in consult. Current concern is for IBD, specifically Crohn's disease considering rectal sparing.
-Invanz stopped and solumedrol started
-check prebiologic labs. Viral hepatitis labs NEG, including HBVsAg, TB serologies pending.
-C diff Ag POS, toxin NEG, remains on PO Vanco, ID following
-s/p 2L NS on admission, cont NS @ 125cc/hr
Other problems:
Essential hypertension: holding antihypertensives
Migraine headaches: Triptan PRN
Anxiety/Depression: cont Lamictal/Risperdal/Effexor
DNR - confirmed with the pt in the ER
Lovenox
Anticipated Discharge: > 48 hours
Subjective/Interval History
-
Date of Service: January 23, 2024
Symptoms of abd pain and diarrhea persist.
Objective Data
-
Labs:
Laboratory Results
01/23/24
08:45
WBC 6.7
Hgb 7.6 L
Hct 22.1 L
Plt Count 589 H
Sodium 136
Potassium 4.3
Chloride 105
Carbon Dioxide 22
BUN 8
Creatinine 0.8
Glucose 119 H
Calcium 8.0 L
Vital Signs:
Vital Signs
Temp Pulse Resp BP Pulse Ox
99.6 F 74 20 120/59 92
01/23/24 07:40 01/23/24 07:40 01/23/24 07:40 01/23/24 07:40 01/23/24 07:40
I&O
01/22/24 01/23/24 01/24/24
06:59 06:59 06:59
Intake Total 0 / 2469
Balance 2469 / 2470
--- NOTE | 2024-01-23 13:50 | W.PN.ID1 ---
Date of Service
Date of Service: January 23, 2024
Today's Communication
D/C enteral Vanco.
Assessment / Plan
Pancolitis
Persistent diarrhea - 2 weeks
Fevers
- progressing transverse colitis based on CT scan; initially pancolitis which is not typically ischemic
- C Diff negative 01/13 and 01/06; most recent testing was Ag(+)/Tox(-). D/C further vanco po
- giardia and crypto negative 01/06; stool culture negative 01/06
- single blood culture was sent, low yield, I do not recommend further blood cultures at this time
- note recent travel to [place]
- suspect inflammatory cause of diarrhea. Steroids ordered.
- will follow up tb screen, hep b per gi
- last dose of ozempic was 7 weeks ago; agree that would not resume it
- follow clinically
Chief Complaint
-: Other (diarrhea)
Subjective / Review of Systems
Review of Systems: No Fever, Abdominal Pain and Diarrhea
Vital Signs / Physical Exam
Vital Signs
Vital Signs
Temp Pulse Resp BP Pulse Ox
99.6 F 74 20 120/59 92
01/23/24 07:40 01/23/24 07:40 01/23/24 07:40 01/23/24 07:40 01/23/24 07:40
Physical Exam
Constitutional: No Acute Distress, Comfortable and Chronically Ill
Eyes: Sclera Anicteric
Cardiovascular: S1/S2; Negative S3/S4
Pulmonary: Clear and Non Labored
Gastrointestinal: Soft, Tender, Distended, Normal Bowel Sounds, No Rebound and No Guarding
Neurological: Awake and Alert
Psychological: Calm
Objective Data
Lab Data
Lab Results
01/23/24 08:45
01/23/24 08:45
ESR 46 mm/hour (0-20) H 01/22/24 07:19
Estimated Creat Clear 66 ml/min 01/23/24 08:45
Lactic Acid 0.7 mmol/L (0.7-2.0) 01/21/24 17:11
Total Bilirubin 0.3 mg/dl (0.2-1.3) 01/21/24 17:11
AST 24 U/L (14-36) 01/21/24 17:11
ALT 23 U/L (0-35) 01/21/24 17:11
Alkaline Phosphatase 128 U/L (38-126) H 01/21/24 17:11
C-Reactive Protein 149.70 mg/L (0.0-10.00) H 01/22/24 07:19
Most recent labs reviewed.
Micro Results:
01/22/24 19:30 C. difficile [facility] Antigen & Toxins - Final
Feces/Stool C. difficile antigen positive, toxin negative.
Clostridium difficile present, but toxin not detected.
Patient may be a carrier, colonized with nontoxinogenic
strain or the level of toxin in sample is below detection
limits. This information should be used in conjunction with
the patient's clinical history.
01/22/24 19:30 Salmonella/Shigella Culture - Pending
Feces/Stool Campylobacter Culture - Pending
Shiga Toxin Test - Pending
01/21/24 17:11 Blood Culture - Preliminary
Blood/Venous No Growth in 24 hours- Final report to follow
[2024-01-23] MEDS: SOLU-MEDROL PF 20 MG IV ×2 (15:18→23:28)
[2024-01-23 15:27] VITALS: BP 119/60
[2024-01-23] MEDS: LOVENOX 40 MG SC (17:27)
[2024-01-23] MEDS: RISPERDAL 4 MG PO (20:37)
[2024-01-23] MEDS: ZANAFLEX 16 MG PO (20:38)
[2024-01-23] MEDS: BENADRYL 50 MG PO (20:39)
[2024-01-23] MEDS: ATIVAN 1 MG PO (20:40)
[2024-01-23] MEDS: NON-FORMULARY ITEM 1 UNIT PO (20:41)
[2024-01-23 23:47] VITALS: BP 119/64
[2024-01-24] MEDS: DILAUDID 1 MG IV ×6 (03:32→22:45)
[2024-01-24 07:35] VITALS: BP 127/63
[2024-01-24] MEDS: NSS 1000 IV ×2 (07:49→17:03)
[2024-01-24] MEDS: DETROL LA 4 MG PO (07:50)
[2024-01-24] MEDS: EFFEXOR XR 150 MG PO (07:50)
[2024-01-24] MEDS: RISPERDAL 2 MG PO (07:51)
[2024-01-24] MEDS: EFFEXOR XR 75 MG PO (07:51)
[2024-01-24] MEDS: LAMICTAL 250 MG PO (07:51)
[2024-01-24] MEDS: SOLU-MEDROL PF 20 MG IV ×3 (07:52→22:45)
[2024-01-24 08:01] LABS: Blood Urea Nitrogen 7 mg/dl (7-17); Calcium 8.2 mg/dl (8.4-10.2); Carbon Dioxide 21 mmol/L (22-30); Chloride 105 mmol/L (98-107); Estimated Creatinine Clearance 76 ml/min; Glucose 189 mg/dl (70-99); Sodium 137 mmol/L (135-145); eGFR > 60.00
[2024-01-24 09:01] LABS: Hemoglobin 7.9 g/dL (12.0-16.0); Mean Corpuscular Hgb 30.6 pg (27.0-31.0); Red Blood Cell Count 2.58 10^6/uL (4.20-5.40); White Blood Cell Count 8.5 10^3/uL (4.8-10.8)
[2024-01-24 09:02] LABS: Mean Corp Hgb Conc. 32.9 g/dL (33.0-37.0); Mean Platelet Volume 8.8 fL (7.4-10.4); Platelet Count 604 10^3/uL (130-400); Red Cell Dist. Width 13.9 % (11.5-14.5)
--- NOTE | 2024-01-24 09:48 | W.PN.HOSP.TC ---
Today's Communication/Plan
-
See bold
Assessment / Plan
Assessment / Plan
Gen: Remains NAD, AAOx3.
Eyes: EOMI, PERRLA, no scleral icterus.
Neck: supple.
CV: RRR, +S1/S2, no m/r/g.
Resp: CTAB, no rales, wheezes, or rhonchi.
Abd: +BS, soft, nontender to light palpation, mild-mod distention
Skin: No rashes.
Neuro: Remains CN 2-12 intact, non-focal.
Psych: Normal mood and affect.
CT A/P w/IV+PO: Progressive colitis, most pronounced involving the transverse colon. No evidence of pneumatosis. No free air or perforation. No focal collection or abscess. No evidence of bowel obstruction.
Progressive pancolitis, most pronounced in the transverse colon:
-Sepsis, POA, due to pancolitis
-recent hospitalization with sigmoidoscopy with random colon biopsy showing active colitis, severe, with crypt abscess formation and focal areas of purulent material highly suggestive of ulceration
-received abx during prior hospitalization, was not discharged on abx
-Stool studies including C. difficile testing on prior admission were negative
-on admission the pt was febrile and hypotensive. Stool studies ordered but in the meantime antibiotics (IV Invanz/PO Vanco) were started based on my clinical judgment at the time.
-GI saw in consult. Current concern is for IBD, specifically Crohn's disease considering rectal sparing.
-Invanz stopped and solumedrol started 01/23/24
-check prebiologic labs. Viral hepatitis labs NEG, including HBVsAg, TB serologies pending.
-C diff Ag POS, toxin NEG, was on PO Vanco, now stopped by ID
-follow stool Cx
-s/p 2L NS on admission, cont NS @ 75cc/hr
Other problems:
Essential hypertension: holding antihypertensives
Migraine headaches: Triptan PRN
Anxiety/Depression: cont Lamictal/Risperdal/Effexor
DNR - confirmed with the pt in the ER
Lovenox
Anticipated Discharge: 24 - 48 hours
Subjective/Interval History
-
Date of Service: January 24, 2024
Abdominal pain is improving. Diarrhea has not improved.
Objective Data
-
Labs:
Laboratory Results
01/24/24
06:28
WBC 8.5
Hgb 7.9 L
Hct 24.0 L
Plt Count 604 H
Sodium 137
Potassium 5.0
Chloride 105
Carbon Dioxide 21 L
BUN 7
Creatinine 0.7
Glucose 189 H
Calcium 8.2 L
Vital Signs:
Vital Signs
Temp Pulse Resp BP Pulse Ox
97.7 F 60 20 127/63 95
01/24/24 07:35 01/24/24 07:35 01/24/24 07:35 01/24/24 07:35 01/24/24 07:35
I&O
01/23/24 01/24/24 01/25/24
06:59 06:59 06:59
Intake Total 2470 / 2470 2700 / 2700
Balance 2470 / 2470 2700 / 2700
--- NOTE | 2024-01-24 09:58 | W.PN.GI.CBS2 ---
Today's Communication / Plan
-
Continue IV Steroids, advance diet as tolerated. Consider transition to Prednisone in AM with potential d/c
Assessment / Plan
-
Vandana is a 63 y.o. female with recent hospital admission for diarrhea and abdominal pain s/p flex sig with Dr. Castillo on 01/10 with endoscopic concerns for pseudomembranous colitis with initial improvement who returns with persistent symptoms.
--Flex Sig (01/11/24): erythematous ulcerated mucosa in desc/sig colon, rectum spared; bx with severe active colitis w/ crypt abscess, mild/mod architectural distortion compatible with chronic colitis.
--01/06/24 CT A/P oral only: Diffuse colonic wall thickening likely related to an infectious or inflammatory pancolitis. Overall somewhat limited evaluation in the absence of intravenous contrast.
--01/10/24 CT Abd/pel W Iv And Oral Contr: Findings compatible with colitis, contiguous involvement from the superior right colon through the rectum. There is interval increase in gaseous distention of the colon, particularly the transverse colon,
measurements given above. No evidence for free intraperitoneal air. No evidence for pneumatosis. Dilated air and fluid-filled loops of small bowel, most likely an adynamic ileus.
--01/21/24 CT Abd/pel W Iv And Oral Contr: Progressive colitis, most pronounced involving the transverse colon.
CRP 80.5 --> 70.50 --> 55.90 --> 56.90 --> 149.70
Fe 22, TIBC 161, %sat 13
C.diff negative x2 (previous hospitalization) with repeat C.diff +antigen, negative toxin , Repeat stool cultures pending. Initially placed on ertapenem and PO vanc as was febrile on arrival, however, no leukocytosis and has not had any fevers since
that time, ertapenem discontinued, currently on PO vanc.
Her presentation is not consistent with inflammatory bowel disease given the acuity of her symptoms, however, pathology does show chronicity and with progressing colitis on imaging, so I am concerned that this truly represents inflammatory bowel
disease, more specifically Crohn's, given rectal sparing on her recent flexible sigmoidoscopy with Dr. Castillo. I appreciate infectious disease input.
Plan:
-currently on solumedrol 20mg q8 hr--significant improvement in sx after 2 doses, continue for next 24 hours, if continues to improve, will plan to transition to prednisone 40mg in AM and potentially d/c with close f/u with Dr. Castillo
-I would favor completing a course of PO Vanc, given the puzzling picture and now with positive antigen (albeit, negative toxin..)
-HBsAg, HBsAb, HBcAb IgM/IgG, HCV Ab neg; negative HBsAb indicates lack of immunity, recommend vaccination with PCP as outpatient
-f/u TB
-repeat CRP with AM labs
-if worsening pain or distension, obtain stat abdominal film
-advance to full liquids this morning, if tolerating, can discuss low residue diet for dinner
-continues to be anemic, mild iron deficiency on labs during recent admission; will give IV while inpatient as may be difficult to tolerate and unclear if small bowel involvement?
Subjective
Subjective
Date of Service: January 24, 2024
Patient seen in follow-up, reports feeling significantly better after starting steroids yesterday. She only had 1 bowel movement overnight. She feels like her pain is much improved as well as the frequency of bowel movements.
Objective
Data Reviewed
Laboratory Data:
Laboratory Results
01/24/24 06:28
01/24/24 06:28
Laboratory Results
Magnesium 2.0 mg/dl (1.6-2.3) 01/22/24 07:19
Total Bilirubin 0.3 mg/dl (0.2-1.3) 01/21/24 17:11
AST 24 U/L (14-36) 01/21/24 17:11
ALT 23 U/L (0-35) 01/21/24 17:11
Alkaline Phosphatase 128 U/L (38-126) H 01/21/24 17:11
Lipase 78 U/L (23-300) 09/04/24 17:11
Vital Signs and I&O:
Vital Signs
Temp Pulse Resp BP Pulse Ox
97.7 F 60 20 127/63 95
01/24/24 07:35 01/24/24 07:35 01/24/24 07:35 01/24/24 07:35 01/24/24 07:35
I&O
01/23/24 01/24/24 01/25/24
06:59 06:59 06:59
Intake Total 2470 / 2470 2700 / 2700
Balance 2470 / 2470 2700 / 2700
Physical Exam
Physical Exam
GEN: No acute distress, conversant, pleasant sitting up in bed
HEENT: anicteric, extraocular movements intact, clear oropharynx without exudates
GI: soft, mildly-distended, tympanic to percussion, not tender to palpation, normal active bowel sounds, no hepatosplenomegaly
EXT: warm, well perfused, trace edema bilaterally
NEURO: AAOx3, non-focal
[2024-01-24] MEDS: FERRLECIT 110 MG IV (14:10)
[2024-01-24 15:25] VITALS: BP 136/67
[2024-01-24] MEDS: LOVENOX 40 MG SC (17:03)
[2024-01-24] MEDS: NON-FORMULARY ITEM 1 UNIT PO (21:14)
[2024-01-24] MEDS: ATIVAN 1 MG PO (21:15)
[2024-01-24] MEDS: ZANAFLEX 16 MG PO (21:15)
[2024-01-24] MEDS: RISPERDAL 4 MG PO (21:15)
[2024-01-24] MEDS: BENADRYL 50 MG PO (21:16)
[2024-01-24 23:33] VITALS: BP 115/56
--- NOTE | 2024-01-24 23:43 | PTCARENOTE ---
pt attempted to walk into another patients room. pt was briefly disoriented and confused. pt stated,'i was talking to a friend and forgot my room.' pt now aaox3. pt following commands and acting appropriate. call [place] in reach. bed alarm placed.
will monitor.
[2024-01-25] MEDS: NSS 1000 IV ×2 (01:03→23:57)
[2024-01-25 07:56] VITALS: BP 136/81
[2024-01-25] MEDS: LAMICTAL 250 MG PO (08:03)
[2024-01-25] MEDS: RISPERDAL 2 MG PO (08:05)
[2024-01-25] MEDS: DETROL LA 4 MG PO (08:05)
[2024-01-25] MEDS: SOLU-MEDROL PF 20 MG IV ×3 (08:06→23:47)
[2024-01-25] MEDS: EFFEXOR XR 150 MG PO (08:06)
[2024-01-25] MEDS: EFFEXOR XR 75 MG PO (08:06)
[2024-01-25] MEDS: DILAUDID 1 MG IV ×4 (08:22→17:48)
[2024-01-25 09:09] LABS: ALT (SGPT) 13 U/L (0-35); AST (SGOT) 16 U/L (14-36); Albumin 2.2 g/dl (3.5-5.0); Alkaline Phosphatase 81 U/L (38-126); Direct Bilirubin 0.1 mg/dl (0.0-0.4); Total Bilirubin 0.2 mg/dl (0.2-1.3); Total Protein 4.7 g/dl (6.3-8.2)
--- NOTE | 2024-01-25 09:55 | W.PN.GI.CBS2 ---
Today's Communication / Plan
-
Clear liquids. Obstruction series, possible repeat flex sig tomorrow.
Assessment / Plan
-
Vandana is a 63 y.o. female with recent hospital admission for diarrhea and abdominal pain s/p flex sig with Dr. Castillo on 01/10 with endoscopic concerns for pseudomembranous colitis with initial improvement who returns with persistent symptoms.
--Flex Sig (01/11/24): erythematous ulcerated mucosa in desc/sig colon, rectum spared; bx with severe active colitis w/ crypt abscess, mild/mod architectural distortion compatible with chronic colitis.
--01/06/24 CT A/P oral only: Diffuse colonic wall thickening likely related to an infectious or inflammatory pancolitis. Overall somewhat limited evaluation in the absence of intravenous contrast.
--01/10/24 CT Abd/pel W Iv And Oral Contr: Findings compatible with colitis, contiguous involvement from the superior right colon through the rectum. There is interval increase in gaseous distention of the colon, particularly the transverse colon,
measurements given above. No evidence for free intraperitoneal air. No evidence for pneumatosis. Dilated air and fluid-filled loops of small bowel, most likely an adynamic ileus.
--01/21/24 CT Abd/pel W Iv And Oral Contr: Progressive colitis, most pronounced involving the transverse colon.
CRP 80.5 --> 70.50 --> 55.90 --> 56.90 --> 149.70-0->81.80
Fe 22, TIBC 161, %sat 13
C.diff negative x2 (previous hospitalization) with repeat C.diff +antigen, negative toxin , Repeat stool cultures negative. Initially placed on ertapenem and PO vanc as was febrile on arrival, however, no leukocytosis and has not had any fevers
since that time, ertapenem discontinued, currently on PO vanc.
Her presentation is not consistent with inflammatory bowel disease given the acuity of her symptoms, however, pathology does show chronicity and with progressing colitis on imaging, I am concerned that this truly represents inflammatory bowel
disease, more specifically Crohn's, given rectal sparing on her recent flexible sigmoidoscopy with Dr. Castillo. I appreciate infectious disease input.
Plan:
-currently on solumedrol 20mg q8 hr--initially had significnat improvement, however, had worsening of pain and diarrhea overnight, still has yet to complete a full 2 days of steroids, but I am concerned with how her symptoms have worsened over the
last 24 hours
-continue on current solumedrol 20mg q8 hours
-check abdominal xray/obstruction series now; will consider repeat flex sig tomorrow to assess interval worsening of colitis
-CRP 149.7 --> 81.1, after starting steroids, which is reassuring, hopeful that will have significant improvement in next 24 hours
- recommend continuing PO Vanc
-HBsAg, HBsAb, HBcAb IgM/IgG, HCV Ab neg; negative HBsAb indicates lack of immunity, recommend vaccination with PCP as outpatient
-f/u TB
-remain on CLD for now
-t/c colorectal surgery evaluation depending on clinical course over next 24 hours
-continues to be anemic, mild iron deficiency on labs during recent admission; will give IV while inpatient as may be difficult to tolerate and unclear if small bowel involvement?
Subjective
Subjective
Date of Service: January 25, 2024
Overnight, patient had approx 7 episodes of watery diarrhea. Admits to worsening abdominal pain and distension.
Objective
Data Reviewed
Laboratory Data:
Laboratory Results
01/24/24 06:28
01/24/24 06:28
Laboratory Results
Magnesium 2.0 mg/dl (1.6-2.3) 01/22/24 07:19
Total Bilirubin 0.2 mg/dl (0.2-1.3) 01/25/24 07:57
AST 16 U/L (14-36) 01/25/24 07:57
ALT 13 U/L (0-35) 01/25/24 07:57
Alkaline Phosphatase 81 U/L (38-126) 01/25/24 07:57
Lipase 78 U/L (23-300) 01/21/24 17:11
Vital Signs and I&O:
Vital Signs
Temp Pulse Resp BP Pulse Ox
98.4 F 76 16 136/81 95
01/25/24 07:56 01/25/24 07:56 01/25/24 07:56 01/25/24 07:56 01/25/24 07:56
I&O
01/24/24 01/25/24 01/26/24
06:59 06:59 06:59
Intake Total 2700 / 2700 1380 / 1380
Balance 2700 / 2700 1380 / 1380
Physical Exam
Physical Exam
GEN: Nontoxic appearing, mildly uncomfortable
GI: soft, mildly-distended, tympanic to percussion, TTP in RLQ, periumbilical area, LLQ, no rebound or guarding
--- NOTE | 2024-01-25 10:03 | W.PN.HOSP.TC ---
Today's Communication/Plan
-
see bold
Assessment / Plan
Assessment / Plan
Gen: continues to remain NAD, AAOx3.
Eyes: EOMI, PERRLA, no scleral icterus.
Neck: supple.
CV: RRR, +S1/S2, no m/r/g.
Resp: CTAB, no rales, wheezes, or rhonchi.
Abd: +BS, soft, mild tenderness to light palpation, mild-mod distention
Skin: No rashes.
Neuro: continues to remain CN 2-12 intact, non-focal.
Psych: Normal mood and affect.
01/22/24 19:30 Feces/Stool Salmonella/Shigella Culture - Final
No Salmonella, Shigella, Aeromonas or Plesiomonas species
isolated.
01/22/24 19:30 Feces/Stool Campylobacter Culture - Final
No Campylobacter species isolated.
01/21/24 17:11 Blood/Venous Blood Culture - Preliminary
No Growth in 72 hours- Final report to follow
01/22/24 19:30 Feces/Stool C. difficile GDH Antigen & Toxins - Final
C. difficile antigen positive, toxin negative.
Clostridium difficile present, but toxin not detected.
Patient may be a carrier, colonized with nontoxinogenic
strain or the level of toxin in sample is below detection
limits. This information should be used in conjunction with
the patient's clinical history.
CT A/P w/IV+PO: Progressive colitis, most pronounced involving the transverse colon. No evidence of pneumatosis. No free air or perforation. No focal collection or abscess. No evidence of bowel obstruction.
Progressive pancolitis, most pronounced in the transverse colon:
-Sepsis, POA, due to pancolitis
-recent hospitalization with sigmoidoscopy with random colon biopsy showing active colitis, severe, with crypt abscess formation and focal areas of purulent material highly suggestive of ulceration
-received abx during prior hospitalization, was not discharged on abx
-Stool studies including C. difficile testing on prior admission were negative
-on admission the pt was febrile and hypotensive. Stool studies ordered but in the meantime antibiotics (IV Invanz/PO Vanco) were started based on my clinical judgment at the time.
-GI saw in consult. Current concern is for IBD, specifically Crohn's disease considering rectal sparing.
-Invanz stopped and solumedrol started 01/23/24
-check prebiologic labs. Viral hepatitis labs NEG, including HBVsAg, TB serologies pending.
-C diff Ag POS, toxin NEG, was on PO Vanco, now stopped by ID
-stool Cx NEG
-s/p 2L NS on admission, cont NS @ 75cc/hr
-CRP improving
Other problems:
Essential hypertension: holding antihypertensives
Migraine headaches: Triptan PRN
Anxiety/Depression: cont Lamictal/Risperdal/Effexor
DNR - confirmed with the pt in the ER
Lovenox
Anticipated Discharge: > 48 hours
Subjective/Interval History
-
Date of Service: January 25, 2024
Still with diarrhea and abd pain.
Objective Data
-
Labs:
Laboratory Results
01/25/24
07:57
Total Bilirubin 0.2
AST 16
ALT 13
Alkaline Phosphatase 81
Vital Signs:
Vital Signs
Temp Pulse Resp BP Pulse Ox
98.4 F 76 16 136/81 95
01/25/24 07:56 01/25/24 07:56 01/25/24 07:56 01/25/24 07:56 01/25/24 07:56
I&O
01/24/24 01/25/24 01/26/24
06:59 06:59 06:59
Intake Total 2700 / 2700 1380 / 1380
Balance 2700 / 2700 1380 / 1380
[2024-01-25] MEDS: FERRLECIT 110 MG IV (11:39)
[2024-01-25 11:56] LABS: Quantiferon Mitogen minus NIL 9.95 IU/mL; Quantiferon NIL 0.05 IU/mL; Quantiferon TB Gold Plus Negative (Negative)
[2024-01-25 15:34] VITALS: BP 156/87
[2024-01-25] MEDS: LOVENOX 40 MG SC (16:47)
[2024-01-25] MEDS: ZANAFLEX 16 MG PO (21:26)
[2024-01-25] MEDS: RISPERDAL 4 MG PO (21:27)
[2024-01-25] MEDS: ATIVAN 1 MG PO (21:28)
[2024-01-25] MEDS: BENADRYL 50 MG PO (21:28)
[2024-01-25] MEDS: NON-FORMULARY ITEM 1 UNIT PO (21:29)
[2024-01-25 23:48] VITALS: BP 154/76
[2024-01-26] VITALS (12 sets, daily range): BP systolic 14–165; BP diastolic 60–94; BMI 24.1
[2024-01-26] MEDS: DILAUDID 1 MG IV ×5 (03:12→19:46)
[2024-01-26] MEDS: RISPERDAL 2 MG PO (08:17)
[2024-01-26] MEDS: EFFEXOR XR 150 MG PO (08:17)
[2024-01-26] MEDS: EFFEXOR XR 75 MG PO (08:17)
[2024-01-26] MEDS: LAMICTAL 250 MG PO (08:17)
[2024-01-26] MEDS: DETROL LA 4 MG PO (08:17)
[2024-01-26] MEDS: SOLU-MEDROL PF 20 MG IV ×2 (08:18→15:39)
--- NOTE | 2024-01-26 09:14 | W.PN.UPDATE ---
Update Note
Progress Note Update
Despite reassuring abdominal xray and inflammatory markers, both improving significantly, patient continues to have abdominal pain and frequent diarrhea without marked improvement s/p 3 days of IV steroids. Recommend proceeding with flex sig for
repeat evaluation today. Patient agreeable. No prep needed. Will remain NPO until procedure. Further recommendations to follow.
--- NOTE | 2024-01-26 10:39 | W.PN.ID1 ---
Date of Service
Date of Service: January 26, 2024
Today's Communication
For flex sig per GI.
Assessment / Plan
Pancolitis
Persistent diarrhea - 2 weeks
Fevers resolved
- progressing transverse colitis based on CT scan; initially pancolitis which is not typically ischemic
- C Diff negative 01/13 and 01/06; most recent testing was Ag(+)/Tox(-). D/C'd further vanco po
- giardia and crypto negative 01/06; stool culture negative 01/06
- single blood culture was sent, low yield
- note recent travel to [place]
- suspect inflammatory cause of diarrhea.
Diarrhea without improvement on steroid.
Appreciate GI. For flex sig.
- tb screen negative Hep B serologies negative.
- last dose of ozempic was 7 weeks ago, currently on hold.
- follow clinically
Chief Complaint
-: Other (diarrhea)
Subjective / Review of Systems
Still with diarrhea. For flex-sig today.
Vital Signs / Physical Exam
Vital Signs
Vital Signs
Temp Pulse Resp BP Pulse Ox
98.1 F 90 20 144/85 95
01/26/24 07:15 01/26/24 07:15 01/26/24 07:15 01/26/24 07:15 01/26/24 07:15
Physical Exam
Constitutional: No Acute Distress
Pulmonary: Clear
Gastrointestinal: Soft, Non Tender and Non Distended
Neurological: AO x 3
Objective Data
Lab Data
Lab Results
01/24/24 06:28
01/24/24 06:28
ESR 46 mm/hour (0-20) H 01/22/24 07:19
Estimated Creat Clear 76 ml/min 01/24/24 06:28
Lactic Acid 0.7 mmol/L (0.7-2.0) 01/21/24 17:11
Total Bilirubin 0.2 mg/dl (0.2-1.3) 01/25/24 07:57
AST 16 U/L (14-36) 01/25/24 07:57
ALT 13 U/L (0-35) 01/25/24 07:57
Alkaline Phosphatase 81 U/L (38-126) 01/25/24 07:57
C-Reactive Protein 81.10 mg/L (0.0-10.00) H 01/25/24 07:57
Most recent labs reviewed.
Micro Results:
01/22/24 19:30 Salmonella/Shigella Culture - Final
Feces/Stool No Salmonella, Shigella, Aeromonas or Plesiomonas species
isolated.
Campylobacter Culture - Final
No Campylobacter species isolated.
Shiga Toxin Test - Final
No E. coli Shiga Toxin 1 or 2 detected.
01/21/24 17:11 Blood Culture - Preliminary
Blood/Venous No Growth in 4 days- Final report to follow
01/22/24 19:30 C. difficile GDH Antigen & Toxins - Final
Feces/Stool C. difficile antigen positive, toxin negative.
Clostridium difficile present, but toxin not detected.
Patient may be a carrier, colonized with nontoxinogenic
strain or the level of toxin in sample is below detection
limits. This information should be used in conjunction with
the patient's clinical history.
[2024-01-26] MEDS: TYLENOL 650 MG PO ×2 (10:51→16:32)
[2024-01-26] MEDS: FERRLECIT 110 MG IV (14:10)
--- NOTE | 2024-01-26 14:39 | W.PN.HOSP.TC ---
Today's Communication/Plan
-
Flex sig with GI
2D echo
IV steroid
Assessment / Plan
Assessment / Plan
NAD, resting comfortably in bed
Scleral anicteric
Moist mucous membranes
No JVD
CTA bilateral
Normal S1-S2 RUSB 2/6 ISELA
Soft nontender nondistended bowel sounds active
No peripheral pitting edema
Moves extremities spontaneously
AAOx3
Progressive pancolitis, most pronounced in the transverse colon:
-Sepsis, POA, due to pancolitis
-recent hospitalization with sigmoidoscopy with random colon biopsy showing active colitis, severe, with crypt abscess formation and focal areas of purulent material highly suggestive of ulceration
-received abx during prior hospitalization, was not discharged on abx
-Stool studies including C. difficile testing on prior admission were negative
-on admission the pt was febrile and hypotensive. Stool studies ordered but in the meantime antibiotics (IV Invanz/PO Vanco) were started based on my clinical judgment at the time.
-GI saw in consult. Current concern is for IBD, specifically Crohn's disease considering rectal sparing.
-Invanz stopped and solumedrol started 01/23/24
-check prebiologic labs. Viral hepatitis labs NEG, including HBVsAg, TB serologies pending.
-C diff Ag POS, toxin NEG, was on PO Vanco, now stopped by ID
-stool Cx NEG
-s/p 2L NS on admission, cont NS @ 75cc/hr
-CRP improving
Other problems:
Essential hypertension: holding antihypertensives
Migraine headaches: Triptan PRN
Anxiety/Depression: cont Lamictal/Risperdal/Effexor
Cardiac murmur likely AAS. 2D echo ordered
DNR - confirmed with the pt in the ER
Lovenox
Anticipated Discharge: 24 - 48 hours
Subjective/Interval History
-
Date of Service: January 26, 2024
Seen and. No new complaints. No acute overnight events.
Still has pain.
Even with the slightest touch abdominal pain cefdinir.
For flex sig today.
Objective Data
-
Vital Signs:
Vital Signs
Temp Pulse Resp BP Pulse Ox
98.6 F 91 16 150/77 94
01/26/24 13:30 01/26/24 13:45 01/26/24 13:45 01/26/24 13:45 01/26/24 13:45
I&O
01/25/24 01/26/24 01/27/24
06:59 06:59 06:59
Intake Total 1380 / 1380 2700 / 2700
Balance 1380 / 1380 2700 / 2700
--- NOTE | 2024-01-26 16:27 | CM ---
Flex sig, clears liquid diet.
Plan: home no needs.
[2024-01-26] MEDS: BENADRYL 25 MG PO (16:32)
[2024-01-26] MEDS: REMICADE 250 MG IV (16:38)
[2024-01-26] MEDS: LOVENOX 40 MG SC (18:05)
--- NOTE | 2024-01-26 18:26 | PTCARENOTE ---
Pt currently getting Remicade infusion at 150 mL/hr, tolerating well, no adverse effects noted
[2024-01-26] MEDS: NSS IV (19:25)
--- NOTE | 2024-01-26 19:25 | PTCARENOTE ---
remicade infusion completed w/o any signs of reaction.
[2024-01-26] MEDS: ATIVAN 1 MG PO (22:13)
[2024-01-26] MEDS: BENADRYL 50 MG PO (22:13)
[2024-01-26] MEDS: ZANAFLEX 16 MG PO (22:14)
[2024-01-26] MEDS: NON-FORMULARY ITEM 1 UNIT PO (22:14)
[2024-01-26] MEDS: RISPERDAL 4 MG PO (22:14)
[2024-01-27] MEDS: SOLU-MEDROL PF 20 MG IV ×4 (00:14→23:03)
[2024-01-27 03:20] VITALS: BP 168/78
[2024-01-27 07:20] VITALS: BP 145/69
--- NOTE | 2024-01-27 08:30 | W.PN.GI.CBS2 ---
Today's Communication / Plan
-
s/p Remicade infusion 01/25. Advance to full liquids. Possible transition to PO steroids tomorrow, pending clinical course
Assessment / Plan
-
Vandana is a 63 y.o. female with recent hospital admission for diarrhea and abdominal pain s/p flex sig with Dr. Castillo on 01/10 with endoscopic concerns for pseudomembranous colitis with initial improvement readmitted with persistent symptoms. Repeat
stool testing with C.diff positive antigen, neg. toxin, vanc initially started inconjunction with IV solumedrol, later discontinued by ID. Repeat flex sig 01/25 with unchanged exam, despite improving CRP and abd. xray. Remicade (5mg/kg) given
following procedure, on 01/25.
--Flex Sig (01/26/24): Diffuse moderate mucosal changes characterized by congestion (edema), erythema and friability were found in the distal sigmoid colon through the proximal transverse colon, rectum spared.
--Flex Sig (01/11/24): erythematous ulcerated mucosa in desc/sig colon, rectum spared; bx with severe active colitis w/ crypt abscess, mild/mod architectural distortion compatible with chronic colitis.
--01/06/24 CT A/P oral only: Diffuse colonic wall thickening likely related to an infectious or inflammatory pancolitis. Overall somewhat limited evaluation in the absence of intravenous contrast.
--01/10/24 CT Abd/pel W Iv And Oral Contr: Findings compatible with colitis, contiguous involvement from the superior right colon through the rectum. There is interval increase in gaseous distention of the colon, particularly the transverse colon,
measurements given above. No evidence for free intraperitoneal air. No evidence for pneumatosis. Dilated air and fluid-filled loops of small bowel, most likely an adynamic ileus.
--01/21/24 CT Abd/pel W Iv And Oral Contr: Progressive colitis, most pronounced involving the transverse colon.
CRP 80.5 --> 70.50 --> 55.90 --> 56.90 --> 149.70-0->81.80
Fe 22, TIBC 161, %sat 13
C.diff negative x2 (previous hospitalization) with repeat C.diff +antigen, negative toxin , Repeat stool cultures negative. Initially placed on ertapenem and PO vanc, both d/rene per ID recommendations.
Her presentation is not consistent with inflammatory bowel disease given the acuity of her symptoms, however, pathology does show chronicity. Failed to respond to 3 days of IV steroids, unchanged endoscopic exam. Repeat biopsies pending. Remicade
infusion given 01/25 with symptomatic improvement.
Plan:
-Remicade 300mg (5mg/kg) given 01/25-- low albumin, may require additional dose of 5 mg/kg
-currently on solumedrol 20mg q8 hr (day 5), if continues to clinically improve, will plan to transition to PO tomorrow
-CRP 149.7 --> 81.1, after starting steroids
-HBsAg, HBsAb, HBcAb IgM/IgG, HCV Ab neg; negative HBsAb indicates lack of immunity, recommend vaccination with PCP as outpatient
-Quant TB neg.
-tolerating clears, will advance to full liquids
-colorectal surgery evaluation, in the event she does not respond to remicade, salvage therapy with rinvoq vs. surgery
-Mild iron deficiency-- IV iron while inpatient
Subjective
Subjective
Date of Service: January 27, 2024
Patient seen in follow-up-- s/p repeat flex sig yesterday due to persistent symptoms despite 3 days of IV steroids. Overall, unchanged exam. Following the procedure, the decision was made to proceed with Remicade infusion, treating for presumed
Crohns disease. She received 300mg IV dose yesterday (5mg/kg). Reports no nocturnal symptoms, was able to get sleep for the first time. She did have an episode of abdominal discomfort and large volume watery diarrhea this morning but feels much less
distended.
Objective
Data Reviewed
Laboratory Data:
Laboratory Results
01/24/24 06:28
01/24/24 06:28
Laboratory Results
Magnesium 2.0 mg/dl (1.6-2.3) 01/22/24 07:19
Total Bilirubin 0.2 mg/dl (0.2-1.3) 01/25/24 07:57
AST 16 U/L (14-36) 01/25/24 07:57
ALT 13 U/L (0-35) 01/25/24 07:57
Alkaline Phosphatase 81 U/L (38-126) 01/25/24 07:57
Lipase 78 U/L (23-300) 01/21/24 17:11
Vital Signs and I&O:
Vital Signs
Temp Pulse Resp BP Pulse Ox
98.1 F 49 16 168/78 94
01/27/24 03:20 01/27/24 03:20 01/27/24 03:20 01/27/24 03:20 01/27/24 03:20
I&O
01/26/24 01/27/24 01/28/24
06:59 06:59 06:59
Intake Total 2700 / 2700 600 / 600
Balance 2700 / 2700 600 / 600
Physical Exam
Physical Exam
GEN: Nontoxic appearing, mildly uncomfortable
GI: soft, nondistended, mild tenderness to palpation in LLQ and periumbilical area, much improved. +BS
[2024-01-27] MEDS: RISPERDAL 2 MG PO (08:43)
[2024-01-27] MEDS: LAMICTAL 250 MG PO (08:43)
[2024-01-27] MEDS: DETROL LA 4 MG PO (08:43)
[2024-01-27] MEDS: EFFEXOR XR 75 MG PO (08:44)
[2024-01-27] MEDS: EFFEXOR XR 150 MG PO (08:44)
[2024-01-27] MEDS: DILAUDID 1 MG IV ×4 (08:49→18:45)
--- NOTE | 2024-01-27 10:26 | CON.CRS ---
Consultation
-
Date/Time Consultation Requested: January 27, 2024 / 11:45 AM
Date/Time Consultation Performed: January 27, 2024 / 11:45 AM
Requesting Provider: Inpt. Provider
Performing Provider: Rhona Shepherd MD, PGY-1 Resident / Dr. Melissa MD
Reason for Consultation: ABD Pain / Colitis
Medical History
-
Chief Complaint: Recurrent ABD Pain and associated fever
History of Present Illness:
HPI:
63 yo female with no relevant PMHx and a remote PSHx of gastric bypass and hysterectomy performed more than ten years ago, who presents with recurrent severe abdominal pain and diarrhea, associated fever since, since an initial admission and
discharged on 2023, but subsequently readmitted due to persistent symptoms.
Patient was initially discharged, returned due to persistent symptoms including fever.
At this time today, pt states her current pain level is 8/10 in the upper abdomen and 7/10 in the lower abdomen and denies any fevers or chills and stated that her Fever and previous UTI symptoms are completely resolved. She currently denies any
weakness, malaise, SOB, or chest pain and reporst symptomatologic improvement with IV steroids.
Past Medical History
Past Medical History: HTN, Psychiatric (MDD, Anxiety and Insomnia) and Other (Chronic Migranes)
Past Surgical History: Bariatric (Gastric Bypass Surgery), Gynecological (Hysterectomy) and Orthopedic (Knee Replacement x4)
Social History
Tobacco: Non-Smoker
Alcohol: None
Drug: None
Personal:
Living: With Family
Employment: Employed
Family History
Family History: Reviewed & Not Pertinent
Allergies / Home Medications
Allergy/AdvReac Type Severity Reaction Status Date / Time
CAIO Inhibitors Allergy Anaphylaxis Verified 01/06/24 19:14
latex Allergy WELTS Verified 01/06/24 19:14
�Medication �Instructions �Recorded �Confirmed �Type
risperidone 1 mg tablet 2 mg PO DAILY Mental Health/Anxiety 06/28/14 01/21/24 History
tizanidine 4 mg tablet 16 mg PO HS Muscle Spasms 06/28/14 01/21/24 History
amlodipine 5 mg tablet 5 mg PO DAILY Blood Pressure 10/06/17 01/21/24 History
diphenhydramine HCl 25 mg capsule 50 mg PO HS anti-histamine 10/06/17 01/21/24 History
(Banophen)
mirabegron 50 mg tablet,extended 50 mg PO DAILY Urinary Issue 10/06/17 01/21/24 History
release 24 hr (Myrbetriq)
lamotrigine 100 mg tablet 100 mg PO DAILY Seizures 10/27/19 01/21/24 History
lamotrigine 150 mg tablet 150 mg PO DAILY Seizures 10/27/19 01/21/24 History
(Lamictal)
lorazepam 0.5 mg tablet 1 mg PO HS anxiety 10/27/19 01/21/24 History
risperidone 2 mg tablet 4 mg PO HS Mental Health/Anxiety 10/27/19 01/21/24 History
venlafaxine 225 mg tablet,extended 225 mg PO DAILY Depression 10/27/19 01/21/24 History
release 24 hr
zaleplon 10 mg capsule 10 mg PO HS Sleep 10/27/19 01/21/24 History
zolpidem 5 mg tablet 5 mg PO HS Sleep 10/27/19 01/21/24 History
eletriptan 40 mg tablet 40 mg PO DAILYPRN PRN migraine 01/21/24 01/21/24 History
galcanezumab-gnlm 120 mg/mL 120 mg SC QMONTH 01/21/24 01/21/24 History
subcutaneous pen injector
(Emgality Pen)
hydrocodone 5 mg-acetaminophen 325 1 tab PO Q6HPRN PRN severe pain 01/21/24 01/21/24 History
mg tablet
meperidine 50 mg/5 mL oral solution 50 mg PO Q8HPRN PRN severe pain 01/21/24 01/21/24 History
valacyclovir 500 mg tablet 500 mg PO DAILYPRN PRN viral 01/21/24 01/21/24 History
infection
Review of Systems
-
History Source: Patient
All other systems: Negative unless noted
Constitutional: Fever
EENT: No Symptoms
Respiratory: No Symptoms
Cardiac: No Symptoms
Abdomen/GI: Abdominal Pain and Pain
: No Symptoms
Musculoskeletal: No Symptoms
Skin: No Symptoms
Neurological: Weakness
Endocrine: No Symptoms
Hematologic/Lymphatic: No Symptoms
A 10 point review of systems was completed, and was negative except as per HPI.
Physical Exam
Vital Signs
Temp 36.7 C 01/27/24 07:20
Pulse 76 01/27/24 07:20
Resp Rate 18 01/27/24 07:20
Blood pressure 145/69 01/27/24 07:20
SaO2 92 01/27/24 07:20
Body Mass Index (BMI) 24.1
Lab Results / Allergies
01/24/24 06:28
01/24/24 06:28
WBC 8.5 10^3/uL (4.8-10.8) 01/24/24 06:28
Hgb 7.9 g/dL (12.0-16.0) L 01/24/24 06:28
Hct 24.0 % (37.0-47.0) L 01/24/24 06:28
Plt Count 604 10^3/uL (130-400) H 01/24/24 06:28
Abs Immat Gran (auto) 0.0 10^3/uL (0-0.05) 01/21/24 17:11
Neutrophils % 46.6 % (42.2-75.2) 01/21/24 17:11
Allergy/AdvReac Type Severity Reaction Status Date / Time
CAIO Inhibitors Allergy Anaphylaxis Verified 01/06/24 19:14
latex Allergy WELTS Verified 01/06/24 19:14
Physical Exam
General: Well Developed, Well Nourished, No Apparent Distress, Comfortable and Pain
HEENT: Normocephalic, Anicteric, Moist Mucous Membranes and Atraumatic
Respiratory: Non Labored Respirations
GI: Soft, Non Distended, Tender (TTP localized to Upper Quadrants Bilaterally / WO TTP on Lower abdomen ) and Obese
Musculoskeletal: No Clubbing, No Cyanosis and No Edema
Skin: Warm
Neuro: AO x 3 and Nonfocal/Grossly Intact
Psych: Calm
Data Reviewed
-
Radiology: Image Personally Visualized and interpreted and Report Reviewed by me
CT Scan: Image Personally Visualized and interpreted and Report Reviewed by me
Medical Tests (Nuc Med, Echo etc): Image Personally Visualized and interpreted and Report Reviewed by me
Labs: Labs Reviewed by me and Discussed with Patient
Old Records: Reviewed
Critical Care Time (in minutes): ~35 Min.
Total Time Spent with Patient (in minutes): ~30 Min.
Assessment / Plan
-
ASSESSMENT:
63 yo female patient with no relevant PMHx and a remote PSHx of gastric bypass and hysterectomy performed more than ten years ago, who presents with recurrent severe abdominal pain and diarrhea, associated fever, since January 07, initially
discharged but readmitted due to persistent symptoms and fever, due to unspecified colitis of unknown etiology.
PLAN:
Continue to Monitor pain and treatment response for abdominal pain and diarrhea. Consider further imaging/tests if persists
Multimodal Pain control Analgesia
Continue IV fluid Hydration / Supportive Care
Plan for reviewing / repeating further imaging studies for better characterization as needed
Continue close pt monitoring / Continue to F/U ancillary tests and correlate clinically with current pt condition
Anticipate need for potential surgical intervention if continuos/refractory symptomatology and/or further development of associated complications
Continue to Monitor steroid/infusion response. Schedule follow-ups
Ensure clear communication with patient regarding care/management
DVT Ppx
GI Ppx
[2024-01-27 11:19] VITALS: BP 134/76
[2024-01-27] MEDS: FERRLECIT 110 MG IV (15:12)
[2024-01-27 15:35] VITALS: BP 136/67
--- NOTE | 2024-01-27 16:14 | W.PN.HOSP.TC ---
Addendum entered and electronically signed by Cyril Sweet MD 01/27/24 16:23:
correction, IVF stopped as of 01/25
will recheck BMP with pt on high dose steroids
Original Note:
Today's Communication/Plan
-
continue IV steroids, transition to oral hopefully next 24 hrs
recheck Hgb
Assessment / Plan
Assessment / Plan
Progressive pancolitis, most pronounced in the transverse colon:
-Sepsis, POA, due to pancolitis
-recent hospitalization with sigmoidoscopy with random colon biopsy showing active colitis, severe, with crypt abscess formation and focal areas of purulent material highly suggestive of ulceration
-received abx during prior hospitalization, was not discharged on abx
-Stool studies including C. difficile testing on prior admission were negative
-on admission the pt was febrile and hypotensive. Stool studies ordered but in the meantime antibiotics (IV Invanz/PO Vanco) were started based on my clinical judgment at the time.
-GI saw in consult. Current concern is for IBD, specifically Crohn's disease considering rectal sparing.
-Invanz stopped and solumedrol started 01/23/24, Remicade given 01/25
-check prebiologic labs. Viral hepatitis labs NEG, including HBVsAg, TB serologies pending.
-C diff Ag POS, toxin NEG, was on PO Vanco, now stopped by ID
-stool Cx NEG
-s/p 2L NS on admission, currently 95% on room air, cont NS @ 75cc/hr
-CRP improving
Anemia
Hgb on 01/23 was 7.9
will recheck
Other problems:
Essential hypertension: holding antihypertensives
Migraine headaches: Triptan PRN
Anxiety/Depression: cont Lamictal/Risperdal/Effexor
Cardiac murmur 2D echo: Normal left ventricular size, wall thickness and systolic function. No regional
wall motion abnormalities are seen. LV ejection fraction is 60-65% by visual
assessment. Normal diastolic function.
Trileaflet aortic valve. Aortic valve opens normally. Mild aortic
regurgitation.
Left pleural effusion present.
DNR - confirmed with the pt in the ER as per Dr. Hood
Lovenox
Pt is asking to take a shower, will allow
Anticipated Discharge: 24 - 48 hours
Subjective/Interval History
-
Date of Service: January 27, 2024
In good spirits
Objective Data
-
Vital Signs:
Vital Signs
Temp Pulse Resp BP Pulse Ox
98.9 F 106 18 136/67 95
01/27/24 15:35 01/27/24 15:35 01/27/24 15:35 01/27/24 15:35 01/27/24 15:35
I&O
01/26/24 01/27/24 01/28/24
06:59 06:59 06:59
Intake Total 2700 / 2700 600 / 600
Balance 2700 / 2700 600 / 600
Review of Systems
-
History Source: Patient and Coordinated Provider
Constitutional: Denies Fever
EENT: Reports No Symptoms Reported
Respiratory: Reports No Symptoms
Cardiac: Reports No Symptoms
Abdomen/GI: Reports Abdominal Pain (has lessened,but not resolved)
Genitourinary: Reports No Symptoms
Physical Exam
-
General: Well Nourished, No Apparent Distress and Comfortable
HEENT: Normocephalic, Atraumatic and Moist Mucous Membranes
Respiratory: Clear to Auscultation and Non Labored Respirations
Cardiac: Regular Rhythm and S1/S2; Negative Murmur, Rub or Gallop
GI: Soft, Nondistended and Normal Bowel Sounds (Hyperactive bowel sounds)
Musculoskeletal: No Clubbing, No Cyanosis and No Edema
Skin: Warm and Dry; Negative Rash
Neuro: AO x 3, Nonfocal/Grossly Intact and Central Nerve's Intact
[2024-01-27] MEDS: LOVENOX 40 MG SC (17:07)
[2024-01-27 19:30] VITALS: BP 156/84
[2024-01-27] MEDS: ATIVAN 1 MG PO (21:07)
[2024-01-27] MEDS: BENADRYL 50 MG PO (21:07)
[2024-01-27] MEDS: NON-FORMULARY ITEM 1 UNIT PO (21:08)
[2024-01-27] MEDS: ZANAFLEX 16 MG PO (21:13)
[2024-01-27] MEDS: RISPERDAL 4 MG PO (21:13)
[2024-01-27 23:30] VITALS: BP 167/76
[2024-01-28] VITALS (10 sets, daily range): BP systolic 135–160; BP diastolic 72–85
[2024-01-28] MEDS: DILAUDID 1 MG IV ×5 (06:13→20:19)
[2024-01-28 08:12] LABS: % Basophils 0.5 % (0-2); % Eosinophils 0.1 % (0-6); % Immature Granulocytes 4.5 % (0-0.5); % Lymphocytes 32.1 % (20.5-51.1); % Monocytes 10.4 % (1.7-9.3); % Neutrophils 52.4 % (42.2-75.2); Absolute Basophils 0.1 10^3/uL (0-0.2); Absolute Immature Granulocytes 0.5 10^3/uL (0-0.05); Absolute Lymphocytes 3.7 10^3/uL (1.2-3.4); Absolute Monocytes 1.2 10^3/uL (0.1-0.6); Absolute Neutrophils 6.1 10^3/uL (1.4-6.5); Hematocrit 28.6 % (37.0-47.0); Hemoglobin 9.6 g/dL (12.0-16.0); Mean Corp Hgb Conc. 33.6 g/dL (33.0-37.0); Mean Corpuscular Hgb 31.1 pg (27.0-31.0); Mean Corpuscular Volume 92.6 fL (81.0-99.0); Mean Platelet Volume 8.3 fL (7.4-10.4); Nucleated Red Blood Cells % 0.4 %; Platelet Count 683 10^3/uL (130-400); Red Blood Cell Count 3.09 10^6/uL (4.20-5.40); Red Cell Dist. Width 13.8 % (11.5-14.5); White Blood Cell Count 11.6 10^3/uL (4.8-10.8)
[2024-01-28 08:24] LABS: Blood Urea Nitrogen 10 mg/dl (7-17); Calcium 9.4 mg/dl (8.4-10.2); Carbon Dioxide 36 mmol/L (22-30); Chloride 96 mmol/L (98-107); Estimated Creatinine Clearance 59 ml/min; Glucose 105 mg/dl (70-99); Potassium 4.4 mmol/L (3.5-5.1); Sodium 137 mmol/L (135-145); eGFR > 60.00
[2024-01-28] MEDS: DETROL LA 4 MG PO (08:41)
[2024-01-28] MEDS: LAMICTAL 250 MG PO (08:43)
[2024-01-28] MEDS: EFFEXOR XR 150 MG PO (08:44)
[2024-01-28] MEDS: EFFEXOR XR 75 MG PO (08:44)
[2024-01-28] MEDS: SOLU-MEDROL PF 20 MG IV ×3 (08:44→23:12)
[2024-01-28] MEDS: RISPERDAL 2 MG PO (08:44)
--- NOTE | 2024-01-28 08:55 | W.PN.GI.CBS2 ---
Today's Communication / Plan
-
Advance to low residue diet. Give additional dose of remicade
Assessment / Plan
-
Vandana is a 63 y.o. female with recent hospital admission for diarrhea and abdominal pain s/p flex sig with Dr. Castillo on 01/10 with endoscopic concerns for pseudomembranous colitis with initial improvement readmitted with persistent symptoms. Repeat
stool testing with C.diff positive antigen, neg. toxin, vanc initially started inconjunction with IV solumedrol, later discontinued by ID. Repeat flex sig 01/25 with unchanged exam, despite improving CRP and abd. xray. Remicade (5mg/kg) given
following procedure, on 01/25.
--Flex Sig (01/26/24): Diffuse moderate mucosal changes characterized by congestion (edema), erythema and friability were found in the distal sigmoid colon through the proximal transverse colon, rectum spared.
--Flex Sig (01/11/24): erythematous ulcerated mucosa in desc/sig colon, rectum spared; bx with severe active colitis w/ crypt abscess, mild/mod architectural distortion compatible with chronic colitis.
--01/06/24 CT A/P oral only: Diffuse colonic wall thickening likely related to an infectious or inflammatory pancolitis. Overall somewhat limited evaluation in the absence of intravenous contrast.
--01/10/24 CT Abd/pel W Iv And Oral Contr: Findings compatible with colitis, contiguous involvement from the superior right colon through the rectum. There is interval increase in gaseous distention of the colon, particularly the transverse colon,
measurements given above. No evidence for free intraperitoneal air. No evidence for pneumatosis. Dilated air and fluid-filled loops of small bowel, most likely an adynamic ileus.
--01/21/24 CT Abd/pel W Iv And Oral Contr: Progressive colitis, most pronounced involving the transverse colon.
CRP 80.5 --> 70.50 --> 55.90 --> 56.90 --> 149.70-0->81.80
Fe 22, TIBC 161, %sat 13
C.diff negative x2 (previous hospitalization) with repeat C.diff +antigen, negative toxin , Repeat stool cultures negative. Initially placed on ertapenem and PO vanc, both d/rene per ID recommendations.
Her presentation is not consistent with inflammatory bowel disease given the acuity of her symptoms, however, pathology does show chronicity. Failed to respond to 3 days of IV steroids, unchanged endoscopic exam. Repeat biopsies pending. Remicade
infusion given 01/25 with symptomatic improvement.
Plan:
-Remicade 300mg (5mg/kg) given 01/25-- low albumin. I feel she had a partial response, will discuss with pharmacy regarding giving addition 300mg IV dose
-currently on solumedrol 20mg q8 hr (day 5), continue with IV for now
-CRP 149.7 --> 81.1, after starting steroids. AM CRP pending
-HBsAg, HBsAb, HBcAb IgM/IgG, HCV Ab neg; negative HBsAb indicates lack of immunity, recommend vaccination with PCP as outpatient
-Quant TB neg.
-advance to low residue diet
-appreciate colorectal surgery input
-Mild iron deficiency-- IV iron while inpatient
Subjective
Subjective
Date of Service: January 28, 2024
Reports overall the same, still having 5-6 watery BMs in 24 hours, 1 nocturnal episode of diarrhea. Pain tolerable, improved from initial presentation but still present.
Objective
Data Reviewed
Laboratory Data:
Laboratory Results
01/28/24 07:35
01/28/24 07:35
Laboratory Results
Magnesium 2.0 mg/dl (1.6-2.3) 01/22/24 07:19
Total Bilirubin 0.2 mg/dl (0.2-1.3) 01/25/24 07:57
AST 16 U/L (14-36) 01/25/24 07:57
ALT 13 U/L (0-35) 01/25/24 07:57
Alkaline Phosphatase 81 U/L (38-126) 01/25/24 07:57
Lipase 78 U/L (23-300) 01/21/24 17:11
Vital Signs and I&O:
Vital Signs
Temp Pulse Resp BP Pulse Ox
97.9 F 71 18 147/85 93
01/28/24 07:30 01/28/24 07:30 01/28/24 07:30 01/28/24 07:30 01/28/24 07:30
I&O
01/27/24 01/28/24 01/29/24
06:59 06:59 06:59
Intake Total 600 / 600 1200 / 1200
Balance 600 / 600 1200 / 1200
Physical Exam
Physical Exam
GEN: Nontoxic appearing, mildly uncomfortable
GI: soft, nondistended, mild tenderness to palpation in LLQ and periumbilical area, much improved. +BS
[2024-01-28] MEDS: TYLENOL 650 MG PO (09:52)
[2024-01-28] MEDS: BENADRYL 50 MG PO ×2 (09:52→21:16)
[2024-01-28] MEDS: REMICADE 250 MG IV (10:29)
--- NOTE | 2024-01-28 10:30 | PTCARENOTE ---
Remicade infusion started. Pt was premedicated as ordered. VS Q15 min. and continually monitoring.
--- NOTE | 2024-01-28 11:13 | PTCARENOTE ---
Remicade infusion continues, pt tolerating well. VS WNL. Now at 80ml/hr
--- NOTE | 2024-01-28 12:36 | PTCARENOTE ---
pt completed and tolerated Remicade infusion. VS WNL. offers no complaints, CB in reach
[2024-01-28] MEDS: FERRLECIT 110 MG IV (13:18)
--- NOTE | 2024-01-28 14:49 | W.PN.ID1 ---
Date of Service
Date of Service: January 28, 2024
Today's Communication
ID service will no longer actively follow this patient please recall for further questions
Assessment / Plan
Pancolitis
Persistent diarrhea > 2 weeks
Colonization with C difficile without active infection
Fevers resolved
Leukocytosis - likely related to steorids
- progressing transverse colitis based on CT scan; initially pancolitis which is not typically ischemic
- C Diff negative 01/13 and 01/06; most recent testing was Ag(+)/Tox(-). D/C'd further vanco po
- giardia and crypto negative 01/06; stool culture negative 01/06
- path pending
- suspect inflammatory cause of diarrhea, now with second dose of remicaide
- notified clinical pharmacy of possible ADR with ozempic - case will be reported to company
- Appreciate GI
ID service will no longer actively follow this patient please recall for further questions
Chief Complaint
-: Other (diarrhea)
Subjective / Review of Systems
afebrile
ongoing diarrhea - about 7x/day
Vital Signs / Physical Exam
Vital Signs
Vital Signs
Temp Pulse Resp BP Pulse Ox
98.5 F 94 16 145/79 92
01/28/24 12:32 01/28/24 12:32 01/28/24 12:32 01/28/24 12:32 01/28/24 12:32
Physical Exam
Constitutional: No Acute Distress
Cardiovascular: Regular Rate and S1/S2; Negative Murmur or Rub
Pulmonary: Clear and Symmetric; Negative Wheezes or Rales
Gastrointestinal: Soft, Non Tender, Non Distended and Normal Bowel Sounds
Skin: Warm and Dry; Negative Rash or Jaundice
Objective Data
Lab Data
Lab Results
01/28/24 07:35
01/28/24 07:35
ESR 46 mm/hour (0-20) H 01/22/24 07:19
Estimated Creat Clear 59 ml/min 01/28/24 07:35
Lactic Acid 0.7 mmol/L (0.7-2.0) 01/21/24 17:11
Total Bilirubin 0.2 mg/dl (0.2-1.3) 01/25/24 07:57
AST 16 U/L (14-36) 01/25/24 07:57
ALT 13 U/L (0-35) 01/25/24 07:57
Alkaline Phosphatase 81 U/L (38-126) 01/25/24 07:57
C-Reactive Protein 31.70 mg/L (0.0-10.00) H 01/28/24 07:35
Most recent labs reviewed.
Micro Results:
01/21/24 17:11 Blood Culture - Final
Blood/Venous No Growth - Final Report
01/22/24 19:30 Salmonella/Shigella Culture - Final
Feces/Stool No Salmonella, Shigella, Aeromonas or Plesiomonas species
isolated.
Campylobacter Culture - Final
No Campylobacter species isolated.
Shiga Toxin Test - Final
No E. coli Shiga Toxin 1 or 2 detected.
01/22/24 19:30 C. difficile GDH Antigen & Toxins - Final
Feces/Stool C. difficile antigen positive, toxin negative.
Clostridium difficile present, but toxin not detected.
Patient may be a carrier, colonized with nontoxinogenic
strain or the level of toxin in sample is below detection
limits. This information should be used in conjunction with
the patient's clinical history.
Care Review
Plan reviewed with: Other (clinical pharmacist - ADR)
--- NOTE | 2024-01-28 15:21 | W.PN.CRS1 ---
Today's Communication / Plan
-
*Plan discussed with patient / All questions and concerns, were answered and addressed, respectively.
*Will continue to follow passively / No surgical management recommended at this time / Pt condition currently improving with medical/conservative management per the G.I. Team.
Assessment/Plan
-
� ASSESSMENT �
63 yo female patient with no relevant PMHx and a remote PSHx of gastric bypass and hysterectomy performed more than ten years ago, who presents with recurrent severe abdominal pain and diarrhea, associated fever, since January 07, initially
discharged but readmitted due to persistent symptoms and fever, due to unspecified colitis of unknown etiology.
� PLAN �
Continue to Monitor pain and treatment response for abdominal pain and diarrhea. Consider further imaging/tests if persists
Multimodal Pain control Analgesia
Continue IV fluid Hydration / Supportive Care
Plan for reviewing / repeating further imaging studies for better characterization as needed
Continue close pt monitoring / Continue to F/U ancillary tests and correlate clinically with current pt condition
Anticipate need for potential surgical intervention if continuos/refractory symptomatology and/or further development of associated complications
Continue to Monitor steroid/infusion response. Schedule follow-ups
Ensure clear communication with patient regarding care/management
DVT Ppx
GI Ppx
Continue to Follow GI Recommendations
Subjective Data
Subjective Data
Date of Service: January 28, 2024
� TODAY �
Pt was seen and evaluated this morning at bedside with attending physician.
No Acute O/N Events Reported
Feeling-Well Overall / Reports generalize progressive improvement
Pt had No major/significant complains this morning, besides continue mild intermittent episodes of diarrhea, that had been unchanged since her initial presentation upon admission
She stated her ABD Pain had been progressively improving / Been 6/10 on a pain scale this morning
Denies any fever, chills, or malaise and reported complete resolution of her previous fever episodes
Currently Tolerating Regular Diet WO any complain
NO N/V
+ Flatus / - BM
Objective Data
-
Vital Signs
Temp Pulse Resp BP Pulse Ox
36.9 C 94 16 145/79 92
01/28/24 12:32 01/28/24 12:32 01/28/24 12:32 01/28/24 12:32 01/28/24 12:32
Intake & Output
01/27/24 01/28/24 01/29/24
06:59 06:59 06:59
Intake Total 600 / 600 1200 / 1200
Balance 600 / 600 1200 / 1200
Intake:
Oral fluids 600 / 600 1200 / 1200
Other:
Number of approximated SMALL 7
amounts of urine
Number of approximated MODERATE 2
amounts of urine
How many times incontinent 2
MODERATE amount urine
Lab Results
01/28/24 07:35
01/28/24 07:35
Physical Exam
-
General: No Acute Distress, AOx3 and Well Developed
HEENT: Grossly Normal
Chest: Other (Symmetrical Chest-Wall Expansion upon inspiration )
Cardiovascular: Other (NO apparent JVD, thrills or concerning finding for any cardiac Nor related CVD process, noted upon generalized inspection )
Abdomen: Soft, Non Distended, Firm, Tender (TTP Localized to Upper Quadrants Bilaterally / With NO Lower Quadrants Pain or TTP Bilaterally), No Guarding, No Rebound, Flatus and Masses (L-Upper Quadrant Round Band/Mass from previous surgical gastric
bypass at baseline)
Rectal: No Gross Bleeding
Extremities: No Edema, No Calf Tenderness and Grossly Normal
Neurological: No Motor Deficits and No Sensory Deficits
Skin: Warm and Good Color
Wound: No Signs of Infection and No Skin Erythema
Incision: No Skin Erythema and Other
Data Reviewed
-
Diagnostic Radiology: Image Reviewed and Report Reviewed
CT Scan: Image Reviewed and Report Reviewed
MRI: Image Reviewed and Report Reviewed
Total Time Spent with Patient (in minutes): ~ 16 Min.
--- NOTE | 2024-01-28 16:35 | W.PN.HOSP.TC ---
Today's Communication/Plan
-
remicade infusion
iv steroids
follow crp
Assessment / Plan
Assessment / Plan
NAD, resting comfortably in bed
Scleral anicteric
Moist mucous membranes
No JVD
CTA bilateral
Normal S1-S2 RUSB 2/6 ISELA
Soft tender-diffuse nondistended bowel sounds active
No peripheral pitting edema
Moves extremities spontaneously
AAOx3
Progressive pancolitis, most pronounced in the transverse colon:
-Sepsis, POA, due to pancolitis
-recent hospitalization with sigmoidoscopy with random colon biopsy showing active colitis, severe, with crypt abscess formation and focal areas of purulent material highly suggestive of ulceration
-received abx during prior hospitalization, was not discharged on abx
-Stool studies including C. difficile testing on prior admission were negative
-on admission the pt was febrile and hypotensive. Stool studies ordered but in the meantime antibiotics (IV Invanz/PO Vanco) were started based on my clinical judgment at the time.
-GI saw in consult. Current concern is for IBD, specifically Crohn's disease considering rectal sparing.
-Invanz stopped and solumedrol started 01/23/24, Remicade given 01/25, again redosed on 01/27
-check prebiologic labs. Viral hepatitis labs NEG, including HBVsAg, TB serologies neg.
-C diff Ag POS, toxin NEG, was on PO Vanco, now stopped by ID
-stool Cx NEG
-s/p 2L NS on admission, currently 95% on room air, cont NS @ 75cc/hr
-CRP improving
Anemia
Hgb on 01/23 was 7.9
will recheck
Other problems:
Essential hypertension: holding antihypertensives
Migraine headaches: Triptan PRN
Anxiety/Depression: cont Lamictal/Risperdal/Effexor
Cardiac murmur 2D echo: Normal left ventricular size, wall thickness and systolic function. No regional
wall motion abnormalities are seen. LV ejection fraction is 60-65% by visual
assessment. Normal diastolic function.
Trileaflet aortic valve. Aortic valve opens normally. Mild aortic
regurgitation.
Left pleural effusion present.
DNR - confirmed with the pt in the ER as per Dr. Hood
Lovenox
Pt is asking to take a shower, will allow
Anticipated Discharge: 24 - 48 hours
Subjective/Interval History
-
Date of Service: January 28, 2024
seen and examined
still having diarrhea
pain better
on remicade infusion and iv steroids
Objective Data
-
Labs:
Laboratory Results
01/28/24
07:35
WBC 11.6 H
Hgb 9.6 L D
Hct 28.6 L
Plt Count 683 H
Sodium 137
Potassium 4.4
Chloride 96 L
Carbon Dioxide 36 H
BUN 10
Creatinine 0.9
Glucose 105 H
Calcium 9.4
Vital Signs:
Vital Signs
Temp Pulse Resp BP Pulse Ox
99.2 F 99 17 135/81 90
01/28/24 15:20 01/28/24 15:20 01/28/24 15:20 01/28/24 15:20 01/28/24 15:20
I&O
01/27/24 01/28/24 01/29/24
06:59 06:59 06:59
Intake Total 600 / 600 1200 / 1200
Balance 600 / 600 1200 / 1200
[2024-01-28] MEDS: LOVENOX 40 MG SC (17:01)
[2024-01-28] MEDS: NON-FORMULARY ITEM 1 UNIT PO (21:09)
[2024-01-28] MEDS: RISPERDAL 4 MG PO (21:15)
[2024-01-28] MEDS: ZANAFLEX 16 MG PO (21:15)
[2024-01-28] MEDS: ATIVAN 1 MG PO (21:16)
[2024-01-29] MEDS: DILAUDID 1 MG IV ×7 (03:13→22:16)
[2024-01-29 07:35] VITALS: BP 165/95
[2024-01-29] MEDS: DETROL LA 4 MG PO (08:30)
[2024-01-29] MEDS: RISPERDAL 2 MG PO (08:31)
[2024-01-29] MEDS: SOLU-MEDROL PF 20 MG IV ×3 (08:31→23:03)
[2024-01-29] MEDS: EFFEXOR XR 75 MG PO (08:31)
[2024-01-29] MEDS: EFFEXOR XR 150 MG PO (08:31)
[2024-01-29] MEDS: LAMICTAL 250 MG PO (08:31)
--- NOTE | 2024-01-29 08:53 | W.PN.GI.CBS2 ---
Today's Communication / Plan
-
C/w IV steroids. Monitor for signs of clinical improvement
Assessment / Plan
-
Vandana is a 63 y.o. female with recent hospital admission for diarrhea and abdominal pain s/p flex sig with Dr. Castillo on 01/10 with endoscopic concerns for pseudomembranous colitis with initial improvement readmitted with persistent symptoms. Repeat
stool testing with C.diff positive antigen, neg. toxin, vanc initially started inconjunction with IV solumedrol, later discontinued by ID. Repeat flex sig 01/25 with unchanged exam, despite improving CRP and abd. xray. Remicade (5mg/kg) given
following procedure, on 01/25.
--Flex Sig (01/26/24): Diffuse moderate mucosal changes characterized by congestion (edema), erythema and friability were found in the distal sigmoid colon through the proximal transverse colon, rectum spared.
--Flex Sig (01/11/24): erythematous ulcerated mucosa in desc/sig colon, rectum spared; bx with severe active colitis w/ crypt abscess, mild/mod architectural distortion compatible with chronic colitis.
--01/06/24 CT A/P oral only: Diffuse colonic wall thickening likely related to an infectious or inflammatory pancolitis. Overall somewhat limited evaluation in the absence of intravenous contrast.
--01/10/24 CT Abd/pel W Iv And Oral Contr: Findings compatible with colitis, contiguous involvement from the superior right colon through the rectum. There is interval increase in gaseous distention of the colon, particularly the transverse colon,
measurements given above. No evidence for free intraperitoneal air. No evidence for pneumatosis. Dilated air and fluid-filled loops of small bowel, most likely an adynamic ileus.
--01/21/24 CT Abd/pel W Iv And Oral Contr: Progressive colitis, most pronounced involving the transverse colon.
CRP 80.5 --> 70.50 --> 55.90 --> 56.90 --> 149.70-0->81.80
Fe 22, TIBC 161, %sat 13
C.diff negative x2 (previous hospitalization) with repeat C.diff +antigen, negative toxin , Repeat stool cultures negative. Initially placed on ertapenem and PO vanc, both d/rene per ID recommendations.
Her presentation is not consistent with inflammatory bowel disease given the acuity of her symptoms, however, pathology does show chronicity. Failed to respond to 3 days of IV steroids, unchanged endoscopic exam. Repeat biopsies pending. Remicade
infusion given 01/25 with symptomatic improvement.
Plan:
-Remicade 300mg (5mg/kg) given 01/25 w/ partial response, 2nd dose of 300mg (5mg/kg) given on 01/28
-CRP 149.7 --> 81.1, after starting steroids. 31.70 following 1st remicade infusion
-HBsAg, HBsAb, HBcAb IgM/IgG, HCV Ab neg; negative HBsAb indicates lack of immunity, recommend vaccination with PCP as outpatient
-Quant TB neg.
-advance to low residue diet on 01/27 and tolerating well
-appreciate colorectal surgery input
-Mild iron deficiency-- IV iron while inpatient
-observe for next 24 hours for signs of improvement, if her colitis is refractory to remicade, alternative options includ salvage therapy with Rinvoq, cyclosporine?? or surgery.
Subjective
Subjective
Date of Service: January 29, 2024
Patient overall the same as yesterday, reports 2 separate occasions of severe, 8/10 pain in the last 12 hours. Reports 7 episodes of diarrhea in last 24 hours. 2nd infusion of Remicade given yesterday.
Objective
Data Reviewed
Laboratory Data:
Laboratory Results
01/28/24 07:35
01/28/24 07:35
Laboratory Results
Magnesium 2.0 mg/dl (1.6-2.3) 01/22/24 07:19
Total Bilirubin 0.2 mg/dl (0.2-1.3) 01/25/24 07:57
AST 16 U/L (14-36) 01/25/24 07:57
ALT 13 U/L (0-35) 01/25/24 07:57
Alkaline Phosphatase 81 U/L (38-126) 01/25/24 07:57
Lipase 78 U/L (23-300) 01/21/24 17:11
Vital Signs and I&O:
Vital Signs
Temp Pulse Resp BP Pulse Ox
97.7 F 97 18 165/95 94
01/29/24 07:35 01/29/24 07:35 01/29/24 07:35 01/29/24 07:35 01/29/24 07:35
I&O
01/28/24 01/29/24 01/30/24
06:59 06:59 06:59
Intake Total 1200 / 1200 1080 / 1080
Balance 1200 / 1200 1080 / 1080
Physical Exam
Physical Exam
GEN: Nontoxic appearing, mildly uncomfortable
GI: soft, nondistended, mild tenderness to palpation in LLQ and periumbilical area,+BS
[2024-01-29 10:00] LABS: Hematocrit 28.3 % (37.0-47.0); Hemoglobin 9.6 g/dL (12.0-16.0); Mean Corp Hgb Conc. 33.9 g/dL (33.0-37.0); Mean Corpuscular Hgb 31.8 pg (27.0-31.0); Mean Corpuscular Volume 93.7 fL (81.0-99.0); Mean Platelet Volume 8.3 fL (7.4-10.4); Platelet Count 641 10^3/uL (130-400); Red Blood Cell Count 3.02 10^6/uL (4.20-5.40); Red Cell Dist. Width 13.9 % (11.5-14.5); White Blood Cell Count 13.9 10^3/uL (4.8-10.8)
[2024-01-29 10:44] LABS: Blood Urea Nitrogen 17 mg/dl (7-17); Calcium 9.2 mg/dl (8.4-10.2); Carbon Dioxide 31 mmol/L (22-30); Chloride 95 mmol/L (98-107); Estimated Creatinine Clearance 53 ml/min; Glucose 198 mg/dl (70-99); Potassium 4.3 mmol/L (3.5-5.1); Sodium 136 mmol/L (135-145); eGFR > 60.00
--- NOTE | 2024-01-29 10:53 | W.PN.CRS1 ---
Today's Communication / Plan
-
steroids/Remicade per GI
no indication for surgery at this time, will follow
Assessment/Plan
-
63 yo female patient with no relevant PMHx and a remote PSHx of gastric bypass and hysterectomy performed more than ten years ago, who presents with recurrent severe abdominal pain and diarrhea, associated fever, since January 07, initially
discharged but readmitted due to persistent symptoms and fever, due to unspecified colitis of unknown etiology.
-No labs today
-Colonoscopy path pending
-Pain worsened after eating last night, continue to monitor exam
-Remicade/steroids per GI
-No indication for surgery at this time
Subjective Data
Subjective Data
Date of Service: January 29, 2024
Patient states she was during well until last night after eating, then her pain came back. She denies nausea or vomiting. She has no blood in her stools.
Objective Data
-
Vital Signs
Temp Pulse Resp BP Pulse Ox
97.7 F 97 18 165/95 94
01/29/24 07:35 01/29/24 07:35 01/29/24 07:35 01/29/24 07:35 01/29/24 07:35
Intake & Output
01/28/24 01/29/24 01/30/24
06:59 06:59 06:59
Intake Total 1200 / 1200 1080 / 1080
Balance 1200 / 1200 1080 / 1080
Intake:
Oral fluids 1200 / 1200 1080 / 1080
Other:
Number of approximated MODERATE 2 2
amounts of urine
How many times incontinent 2
MODERATE amount urine
Lab Results
01/29/24 09:19
01/29/24 09:19
Physical Exam
-
General: No Acute Distress and AOx3
Abdomen: Soft, Non Distended and Tender (mild, diffuse)
Skin: Warm and Dry
[2024-01-29 11:19] VITALS: BP 165/85
[2024-01-29] MEDS: TYLENOL 650 MG PO (11:19)
--- NOTE | 2024-01-29 11:52 | PTCARENOTE ---
Assumed care of pt from previous nurse. Pt with pain to abdomen, dilaudid provided, managing to pt's acceptable level. Pt conts with diarrhea, abdominal tenderness. Pt call [place] is within reach, pt rings [facility]. will cont to monitor.
[2024-01-29] MEDS: DILAUDID 0.5 MG IV (13:10)
--- NOTE | 2024-01-29 13:45 | CM ---
Patient seen bedside.
Per patient improved, but still with loose stools.
Patient aware of CM availability should needs arise.
Plan: home no needs anticipated.
--- NOTE | 2024-01-29 14:14 | W.PN.HOSP.TC ---
Today's Communication/Plan
-
per gi observe for now, continue iv steroids,
if still not imprioving then may need to consider different biologic or surgery.
Assessment / Plan
Assessment / Plan
NAD, resting comfortably in bed
Scleral anicteric
Moist mucous membranes
No JVD
CTA bilateral
Normal S1-S2 RUSB / ISELA
Soft tender-diffuse nondistended bowel sounds active
No peripheral pitting edema
Moves extremities spontaneously
AAOx3
Progressive pancolitis, most pronounced in the transverse colon:
-Sepsis, POA, due to pancolitis
-recent hospitalization with sigmoidoscopy with random colon biopsy showing active colitis, severe, with crypt abscess formation and focal areas of purulent material highly suggestive of ulceration
-received abx during prior hospitalization, was not discharged on abx
-Stool studies including C. difficile testing on prior admission were negative
-on admission the pt was febrile and hypotensive. Stool studies ordered but in the meantime antibiotics (IV Invanz/PO Vanco) were started based on my clinical judgment at the time.
-GI saw in consult. Current concern is for IBD, specifically Crohn's disease considering rectal sparing.
-Invanz stopped and solumedrol started 01/23/24, Remicade given 01/25, again redosed on 01/27
-check prebiologic labs. Viral hepatitis labs NEG, including HBVsAg, TB serologies neg.
-C diff Ag POS, toxin NEG, was on PO Vanco, now stopped by ID
-stool Cx NEG
-s/p 2L NS on admission, currently 95% on room air, cont NS @ 75cc/hr
-CRP improving
Other problems:
Essential hypertension: holding antihypertensives
Migraine headaches: Triptan PRN
Anxiety/Depression: cont Lamictal/Risperdal/Effexor
Cardiac murmur 2D echo: Normal left ventricular size, wall thickness and systolic function. No regional
wall motion abnormalities are seen. LV ejection fraction is 60-65% by visual
assessment. Normal diastolic function.
Trileaflet aortic valve. Aortic valve opens normally. Mild aortic
regurgitation.
Left pleural effusion present.
DNR - confirmed with the pt in the ER as per Dr. Hood
Lovenox
Pt is asking to take a shower, will allow
Anticipated Discharge: 24 - 48 hours
Subjective/Interval History
-
Date of Service: January 29, 2024
Seen and examined. No new complaints. No acute overnight events.
Tolerated second dose of Remicade follow-up. However overnight began having 8/10 abdominal pain. Improved with Dilaudid. However again this afternoon had additional abdominal pain that did not significantly improve with as needed ordered Dilaudid
and asked for additional breakthrough. Diarrhea still present.
Objective Data
-
Labs:
Laboratory Results
01/29/24
09:19
WBC 13.9 H
Hgb 9.6 L
Hct 28.3 L
Plt Count 641 H
Sodium 136
Potassium 4.3
Chloride 95 L
Carbon Dioxide 31 H
BUN 17
Creatinine 1.0
Glucose 198 H
Calcium 9.2
Vital Signs:
Vital Signs
Temp Pulse Resp BP Pulse Ox
97.6 F 94 16 165/85 95
01/29/24 11:19 01/29/24 11:19 01/29/24 11:19 01/29/24 11:19 01/29/24 11:19
I&O
01/28/24 01/29/24 01/30/24
06:59 06:59 06:59
Intake Total 1200 / 1200 1080 / 1080
Balance 1200 / 1200 1080 / 1080
[2024-01-29 15:18] VITALS: BP 148/92
[2024-01-29] MEDS: LOVENOX 40 MG SC (17:46)
[2024-01-29] MEDS: RISPERDAL 4 MG PO (21:13)
[2024-01-29] MEDS: BENADRYL 50 MG PO (21:13)
[2024-01-29] MEDS: ATIVAN 1 MG PO (21:13)
[2024-01-29] MEDS: NON-FORMULARY ITEM 1 UNIT PO (21:14)
[2024-01-29] MEDS: ZANAFLEX 16 MG PO (21:14)
[2024-01-29 22:37] VITALS: BP 131/80
[2024-01-30] MEDS: DILAUDID 1 MG IV ×4 (05:55→16:02)
[2024-01-30 07:33] LABS: Mean Corp Hgb Conc. 33.3 g/dL (33.0-37.0); Mean Corpuscular Hgb 31.5 pg (27.0-31.0); Mean Corpuscular Volume 94.6 fL (81.0-99.0); Mean Platelet Volume 8.2 fL (7.4-10.4); Platelet Count 594 10^3/uL (130-400); Red Blood Cell Count 3.17 10^6/uL (4.20-5.40); Red Cell Dist. Width 14.1 % (11.5-14.5); White Blood Cell Count 10.6 10^3/uL (4.8-10.8)
[2024-01-30 07:35] VITALS: BP 141/85
[2024-01-30 08:11] LABS: Blood Urea Nitrogen 18 mg/dl (7-17); Calcium 9.5 mg/dl (8.4-10.2); Carbon Dioxide 29 mmol/L (22-30); Chloride 99 mmol/L (98-107); Estimated Creatinine Clearance 66 ml/min; Glucose 137 mg/dl (70-99); Potassium 4.7 mmol/L (3.5-5.1); Sodium 139 mmol/L (135-145); eGFR > 60.00
[2024-01-30] MEDS: DETROL LA 4 MG PO (09:06)
[2024-01-30] MEDS: SOLU-MEDROL PF 20 MG IV ×2 (09:07→16:02)
[2024-01-30] MEDS: RISPERDAL 2 MG PO (09:07)
[2024-01-30] MEDS: EFFEXOR XR 150 MG PO (09:07)
[2024-01-30] MEDS: LAMICTAL 250 MG PO (09:07)
[2024-01-30] MEDS: EFFEXOR XR 75 MG PO (09:07)
--- NOTE | 2024-01-30 09:24 | W.PN.CRS1 ---
Today's Communication / Plan
-
No indication for surgery
Will sign off
Assessment/Plan
-
63 yo female patient with no relevant PMHx and a remote PSHx of gastric bypass and hysterectomy performed more than ten years ago, who presents with recurrent severe abdominal pain and diarrhea, associated fever, since January 07, initially
discharged but readmitted due to persistent symptoms and fever, due to unspecified colitis of unknown etiology.
-WBC normal
-Colonoscopy path pending
-Remicade/steroids per GI
-No indication for surgery at this time
-Patient is overall doing better. Will sign off. Please recontact us should any further issues arise.
Subjective Data
Subjective Data
Date of Service: January 30, 2024
Patient states she felt well yesterday until last night again she had some abdominal cramping. She also states she had loose stools. Overall she is feeling better than when she came in.
Objective Data
-
Vital Signs
Temp Pulse Resp BP Pulse Ox
98.3 F 89 16 141/85 94
01/30/24 07:35 01/30/24 07:35 01/30/24 07:35 01/30/24 07:35 01/30/24 07:35
Intake & Output
01/29/24 01/30/24 01/31/24
06:59 06:59 06:59
Intake Total 1080 / 1080 1680 / 1680
Balance 1080 / 1080 1680 / 1680
Intake:
Oral fluids 1080 / 1080 1680 / 1680
Other:
Number of approximated MODERATE 2 2
amounts of urine
Lab Results
01/30/24 07:17
01/30/24 07:17
Physical Exam
-
General: No Acute Distress and AOx3
Abdomen: Soft, Non Distended and Tender (Mild throughout)
Skin: Warm and Dry
[2024-01-30 15:00] VITALS: BP 145/87
--- NOTE | 2024-01-30 15:09 | W.PN.HOSP.TC ---
Today's Communication/Plan
-
await further GI and Surgical recs. May need biologic therapy or surgery.
Assessment / Plan
Assessment / Plan
NAD, resting comfortably in bed
Scleral anicteric
Moist mucous membranes
No JVD
CTA bilateral
Normal S1-S2 RUSB 2/6 ISELA
Soft tender-diffuse nondistended bowel sounds active
No peripheral pitting edema
Moves extremities spontaneously
AAOx3
Progressive pancolitis most pronounced at transverse colon. Concern for IBD/Crohn's flare. S/p flex sig with rectal sparing demonstration. Currently on steroids and s/p 2 doses of Remicade.
GI and surgery following.
Per GI may require additional transition of Biologics or even surgical eval if continues to have abdominal pain diarrhea.
Should be noted that stool cultures have been negative. C. difficile antigen was positive toxin negative initially on p.o. vancomycin discontinued by infectious diseases.
DNR
Lovenox
Pt is asking to take a shower, will allow
Anticipated Discharge: > 48 hours
Subjective/Interval History
-
Date of Service: January 30, 2024
Seen and examined.
States that when ever she eats after she has significant amount of abdominal pain and then has diarrhea.
Objective Data
-
Labs:
Laboratory Results
01/30/24
07:17
WBC 10.6
Hgb 10.0 L
Hct 30.0 L
Plt Count 594 H
Sodium 139
Potassium 4.7
Chloride 99
Carbon Dioxide 29
BUN 18 H
Creatinine 0.8
Glucose 137 H
Calcium 9.5
Vital Signs:
Vital Signs
Temp Pulse Resp BP Pulse Ox
98.3 F 89 16 141/85 94
01/30/24 07:35 01/30/24 07:35 01/30/24 07:35 01/30/24 07:35 01/30/24 07:35
I&O
01/29/24 01/30/24 01/31/24
06:59 06:59 06:59
Intake Total 1080 / 1080 1680 / 1680
Balance 1080 / 1080 1680 / 1680
[2024-01-30] MEDS: LOVENOX 40 MG SC (16:02)
--- NOTE | 2024-01-30 16:09 | W.PN.GI.CBS2 ---
Addendum entered and electronically signed by Gracie Mae MD 01/31/24 11:42:
With all the immunosuppressive meds give will check HIV
Addendum entered and electronically signed by Gracie Mae MD 01/30/24 18:11:
IF start rinvoq may need to consider PJP prophylaxis (triple immunosuppression)
Additionally I will hold tonight steroids in case Rinvoq or surgery needed -
I am not sure how much helping at this juncture anyway
Original Note:
Today's Communication / Plan
-
daily xray, surgery, labs, monitor clinical exam
Assessment / Plan
-
Vandana is a 63 y.o. female with recent hospital admission for diarrhea and abdominal pain s/p flex sig with Dr. Castillo on 01/10 with endoscopic concerns for pseudomembranous colitis with initial improvement readmitted with persistent symptoms. Repeat
stool testing with C.diff positive antigen, neg. toxin, vanc initially started inconjunction with IV solumedrol, later vanco discontinued by ID. Repeat flex sig 01/25 with unchanged exam (I personally reviewed endoscopic images I think there is some
improvement), despite improving CRP and abd xray. Remicade (5mg/kg) given following procedure, on 01/25.
--Flex Sig (01/26/24): Diffuse moderate mucosal changes characterized by congestion (edema), erythema and friability were found in the distal sigmoid colon through the proximal transverse colon, rectum spared.
--Flex Sig (01/11/24): erythematous ulcerated mucosa in desc/sig colon, rectum spared; bx with severe active colitis w/ crypt abscess, mild/mod architectural distortion compatible with chronic colitis.
--01/06/24 CT A/P oral only: Diffuse colonic wall thickening likely related to an infectious or inflammatory pancolitis. Overall somewhat limited evaluation in the absence of intravenous contrast.
--01/10/24 CT Abd/pel W Iv And Oral Contr: Findings compatible with colitis, contiguous involvement from the superior right colon through the rectum. There is interval increase in gaseous distention of the colon, particularly the transverse colon,
measurements given above. No evidence for free intraperitoneal air. No evidence for pneumatosis. Dilated air and fluid-filled loops of small bowel, most likely an adynamic ileus.
--01/21/24 CT Abd/pel W Iv And Oral Contr: Progressive colitis, most pronounced involving the transverse colon.
CRP 80.5 --> 70.50 --> 55.90 --> 56.90 --> 149.70-0->81.80
Fe 22, TIBC 161, %sat 13
C.diff negative x2 (previous hospitalization) with repeat C.diff +antigen, negative toxin , Repeat stool cultures negative. Initially placed on ertapenem and PO vanc, both d/rene per ID recommendations.
Her presentation is not consistent with inflammatory bowel disease given the acuity of her symptoms, however, pathology does show chronicity. Failed to respond to 3 days of IV steroids. Remicade infusion given 01/25 and 01/27 with some symptomatic
improvement but still with diarrhea and abdominal pain.
Her symptoms seem to be out of proportion to what we are seeing objectively. Her exam to me was unremarkable when I push on her belly she had no tenderness although she was stating she was reporting active 7 out of 10 pain. Her colitis looks to be
more moderate although her albumin is low, platelets are elevated, she is anemic which can be a sign of more severe disease. Her calprotectin is in the 400s which is elevated but not markedly elevated.
With her ongoing pain, I ordered another obstructive series which I reviewed which shows again persistent colitis with colonic ileus. There is also probably a small bowel ileus. I suspect this explains her pain. I have concerns about evolving
toxic megacolon. Reassuring she does not have a leukocytosis and bicarb normal.
Recommendations:
- I discussed with surgery and hospitalist - will stop narcotics (perhaps would benefit from IV Tylenol?), get daily Xray, surgery will continue to follow
- I d/w path - will add on CMV and will get result on Friday
- Full bloodwork tomorrow - CBC, BMP, LFTs (recheck albumin), CRP, lipid panel (possible Rinvoq as below)
- Rinvoq: We discussed risks and benefits of starting Rinvoq. Adverse events include infection, mortality from cardiovascular events, malignancy such as lymphoma, thrombosis, hypersensitivity, rare reports of GI perforation, zoster, neutropenia,
anemia, lymphopenia, elevated LFTs, elevated lipids. Patient needs periodic skin check for with risk of skin cancer. Recommend shingles vaccine before Rinvoq if possible. Recommend baseline CBC, LFTs and lipid and repeat 12 weeks posttherapy.
With her X-ray, there is potentially an increased risk of perforation with Rinvoq - therefore would wait to start until we reassess with repeat X-ray tomorrow. May need to stop steroid with Rinvoq
- Continue Lovenox especially if start Rinvoq risk of VTE as above
I went and reviewed with patient twice throughout the day extensive time spent in coordination of care of patient as above
Total Time Spent with Patient (in minutes): 60
Subjective
Subjective
Date of Service: January 30, 2024
Still c/o significant abd pain 11/25 (but better from 02/25)
Diarrhea better - 7 times a day instead of 10+ still with urgency, incontinence, nocturnal BM; no blood since steroids
Objective
Data Reviewed
Laboratory Data:
Laboratory Results
01/30/24 07:17
01/30/24 07:17
Laboratory Results
Magnesium 2.0 mg/dl (1.6-2.3) 01/22/24 07:19
Total Bilirubin 0.2 mg/dl (0.2-1.3) 01/25/24 07:57
AST 16 U/L (14-36) 01/25/24 07:57
ALT 13 U/L (0-35) 01/25/24 07:57
Alkaline Phosphatase 81 U/L (38-126) 01/25/24 07:57
Lipase 78 U/L (23-300) 01/21/24 17:11
Vital Signs and I&O:
Vital Signs
Temp Pulse Resp BP Pulse Ox
98.2 F 108 12 145/87 94
01/30/24 15:00 01/30/24 15:00 01/30/24 15:00 01/30/24 15:00 01/30/24 15:00
I&O
01/29/24 01/30/24 01/31/24
06:59 06:59 06:59
Intake Total 1080 / 1080 1680 / 1680
Balance 1080 / 1080 1680 / 1680
Physical Exam
Physical Exam
HEENT: Anicteric
Cardiology: Normal Sinus Rhythm
Pulmonary: Clear
GI: Non Distended and Non Tender
--- NOTE | 2024-01-30 16:12 | CM ---
Patient seen bedside.
Per still with loose stools.
Plan: home no needs anticipated.
[2024-01-30] MEDS: OFIRMEV 100 IV (19:47)
[2024-01-30] MEDS: RISPERDAL 4 MG PO (20:40)
[2024-01-30] MEDS: BENADRYL 50 MG PO (20:40)
[2024-01-30] MEDS: ZANAFLEX 16 MG PO (20:40)
[2024-01-30] MEDS: ATIVAN 1 MG PO (20:40)
[2024-01-30] MEDS: NON-FORMULARY ITEM 1 UNIT PO (20:50)
[2024-01-30 23:58] VITALS: BP 137/74
[2024-01-31] MEDS: OFIRMEV 100 IV ×3 (05:21→17:17)
[2024-01-31 06:50] LABS: Hematocrit 29.1 % (37.0-47.0); Hemoglobin 9.6 g/dL (12.0-16.0); Mean Corpuscular Hgb 30.6 pg (27.0-31.0); Mean Corpuscular Volume 92.7 fL (81.0-99.0); Mean Platelet Volume 8.2 fL (7.4-10.4); Platelet Count 557 10^3/uL (130-400); Red Blood Cell Count 3.14 10^6/uL (4.20-5.40); Red Cell Dist. Width 14.6 % (11.5-14.5); White Blood Cell Count 15.7 10^3/uL (4.8-10.8)
[2024-01-31 07:19] LABS: ALT (SGPT) 13 U/L (0-35); AST (SGOT) 17 U/L (14-36); Albumin 3.1 g/dl (3.5-5.0); Alkaline Phosphatase 86 U/L (38-126); Blood Urea Nitrogen 23 mg/dl (7-17); Calcium 9.2 mg/dl (8.4-10.2); Carbon Dioxide 27 mmol/L (22-30); Chloride 102 mmol/L (98-107); Direct Bilirubin 0.2 mg/dl (0.0-0.4); Estimated Creatinine Clearance 66 ml/min; Glucose 76 mg/dl (70-99); HDL Cholesterol 66 mg/dl; LDL Cholesterol, Calculated 64 mg/dl; Potassium 4.2 mmol/L (3.5-5.1); Sodium 137 mmol/L (135-145); Total Bilirubin 0.3 mg/dl (0.2-1.3); Total Cholesterol 170 mg/dl (50-199); Total Protein 5.8 g/dl (6.3-8.2); Triglyceride 202 mg/dl (10-149); Very Low Density Lipoprotein 40 mg/dl (0-30); eGFR > 60.00
[2024-01-31 07:44] VITALS: BP 147/84
[2024-01-31] MEDS: LAMICTAL 250 MG PO (09:05)
[2024-01-31] MEDS: EFFEXOR XR 75 MG PO (09:05)
[2024-01-31] MEDS: EFFEXOR XR 150 MG PO (09:05)
[2024-01-31] MEDS: RISPERDAL 2 MG PO (09:05)
[2024-01-31] MEDS: DETROL LA 4 MG PO (09:06)
--- NOTE | 2024-01-31 11:25 | W.PN.GI.CBS2 ---
Addendum entered and electronically signed by Gracie Mae MD 02/02/24 11:19:
d/w surgery on 01/30 as well
Addendum entered and electronically signed by Gracie Mae MD 01/31/24 12:11:
encouraged oob/amulate
also added HIV informed patient given degree of immunosuppressive medications she is getting
Original Note:
Today's Communication / Plan
-
daily xray, monitor exam, trend labs, monitor BM
Assessment / Plan
-
Vandana is a 63 y.o. female with recent hospital admission for diarrhea and abdominal pain s/p flex sig with Dr. Castillo on 01/10 with endoscopic concerns for pseudomembranous colitis with initial improvement readmitted with persistent symptoms. Repeat
stool testing with C.diff positive antigen, neg. toxin, vanc initially started inconjunction with IV solumedrol, later vanco discontinued by ID. Repeat flex sig 01/25 with improvement as well as improving CRP and abd xray but ongoing symptoms.
Remicade (5mg/kg) given following procedure, on 01/25.
--Flex Sig (01/26/24): Diffuse moderate mucosal changes characterized by congestion (edema), erythema and friability were found in the distal sigmoid colon through the proximal transverse colon, rectum spared.
--Flex Sig (01/11/24): erythematous ulcerated mucosa in desc/sig colon, rectum spared; bx with severe active colitis w/ crypt abscess, mild/mod architectural distortion compatible with chronic colitis.
--01/06/24 CT A/P oral only: Diffuse colonic wall thickening likely related to an infectious or inflammatory pancolitis. Overall somewhat limited evaluation in the absence of intravenous contrast.
--01/10/24 CT Abd/pel W Iv And Oral Contr: Findings compatible with colitis, contiguous involvement from the superior right colon through the rectum. There is interval increase in gaseous distention of the colon, particularly the transverse colon,
measurements given above. No evidence for free intraperitoneal air. No evidence for pneumatosis. Dilated air and fluid-filled loops of small bowel, most likely an adynamic ileus.
--01/21/24 CT Abd/pel W Iv And Oral Contr: Progressive colitis, most pronounced involving the transverse colon.
CRP 80.5 --> 70.50 --> 55.90 --> 56.90 --> 149.70-0->81.80
Fe 22, TIBC 161, %sat 13
C.diff negative x2 (previous hospitalization) with repeat C.diff +antigen, negative toxin , Repeat stool cultures negative. Initially placed on ertapenem and PO vanc, both d/rene per ID recommendations.
Her presentation is not consistent with inflammatory bowel disease given the acuity of her symptoms, however, pathology does show chronicity. Failed to respond to 3 days of IV steroids. Remicade infusion given 01/25 and 01/27 with some symptomatic
improvement but still with diarrhea and abdominal pain.
Her symptoms seem to be out of proportion to what we are seeing objectively. Her exam to me continues to be unremarkable when I push on her belly she is distractable and she had no tenderness although she was stating she was reporting active 8 out
of 10 pain today. Reviewing her labs, WBC went up today a little, bicarb normal, albumin improved, CRP trending down, Hb improved, platelets trending down (elevated due to inflammation).
I personally reviewed her X-ray today improved from yesterday - supporting narcotics may have been playing a role
Recommendations:
- continue to hold narcotics, continue IV Tylenol
- daily Xray
- trend CRP
- will have RN record all BM to help us determine is she is improving
- I lowered dose of steroids she got solumedrol 20 q12 yesterday and only solumedrol 20 x1 dose today in case we need to start Rinvoq with concern for increased risk of perforation (unclear how much steroids are helping)
- I d/w path 01/29 - will add on CMV and will get result on Friday
- Full bloodwork tomorrow - CBC, BMP, LFTs (recheck albumin), CRP, lipid panel (possible Rinvoq as below)
- If no improvement will consider to start Rinvoq tomorrow vs repeat dosing of IFX on Friday - there is rare reports of GI perforation with Rinvoq and with her dilation seen on X-ray will need to be cautious
- Clear liquid diet
- If not responding medically may need surgery discussed with patient in detail yesterday
- Continue Lovenox especially if start Rinvoq risk of VTE as above
I discussed with surgery, hospitalist, nurse
Subjective
Subjective
Date of Service: January 31, 2024
pt feels diarrhea better- had 3 BM since 11pm to now (12 hours)
pain no better slightly worse 12/26
Objective
Data Reviewed
Laboratory Data:
Laboratory Results
01/31/24 05:50
01/31/24 05:50
Laboratory Results
Magnesium 2.0 mg/dl (1.6-2.3) 01/22/24 07:19
Total Bilirubin 0.3 mg/dl (0.2-1.3) 01/31/24 05:50
AST 17 U/L (14-36) 01/31/24 05:50
ALT 13 U/L (0-35) 01/31/24 05:50
Alkaline Phosphatase 86 U/L (38-126) 01/31/24 05:50
Lipase 78 U/L (23-300) 01/21/24 17:11
Vital Signs and I&O:
Vital Signs
Temp Pulse Resp BP Pulse Ox
98.0 F 95 18 147/84 95
01/31/24 07:44 01/31/24 07:44 01/31/24 07:44 01/31/24 07:44 01/31/24 07:44
I&O
01/30/24 01/31/24 02/01/24
06:59 06:59 06:59
Intake Total 1679 / 1680 1919
Balance 1680 / 1680 1919
Physical Exam
Physical Exam
GI: Non Distended and Non Tender
[2024-01-31] MEDS: SOLU-MEDROL PF 20 MG IV (12:10)
--- NOTE | 2024-01-31 13:57 | W.PN.HOSP.TC ---
Today's Communication/Plan
-
Hold steroids
Start clear liquid diet
Potentially another dose of Remicade on Friday
Assessment / Plan
Assessment / Plan
NAD, resting comfortably in bed
Scleral anicteric
Moist mucous membranes
No JVD
CTA bilateral
Normal S1-S2 RUSB 2/6 ISELA
Soft tender-diffuse nondistended bowel sounds active
No peripheral pitting edema
Moves extremities spontaneously
AAOx3
Progressive pancolitis most pronounced at transverse colon. Concern for IBD/Crohn's flare. S/p flex sig with rectal sparing demonstration. s/p 2 doses of Remicade.
-GI considering to give additional dose of Remicade on Friday. Holding steroids at this time.
-GI has resume clear liquid diet. Will see how she tolerates
-CRP has improved significantly since presenting.
GI and surgery following.
Per GI may require additional transition of Biologics or even surgical eval if continues to have abdominal pain diarrhea.
Should be noted that stool cultures have been negative. C. difficile antigen was positive toxin negative initially on p.o. vancomycin discontinued by infectious diseases.
DNR
Lovenox
Anticipated Discharge: > 48 hours
Subjective/Interval History
-
Date of Service: January 31, 2024
Seen and examined. No new complaints. No acute overnight events.
Continues to have intermittent diarrhea abdominal pain. Asking for breakthrough pain meds.
X-ray from this morning was reviewed with her showed improved bowels less dilated. Therefore informed her would hold off on giving her any type of narcotics as this is likely making the abdominal pain worse as it is causing distention
Objective Data
-
Labs:
Laboratory Results
01/31/24
05:50
WBC 15.7 H
Hgb 9.6 L
Hct 29.1 L
Plt Count 557 H
Sodium 137
Potassium 4.2
Chloride 102
Carbon Dioxide 27
BUN 23 H
Creatinine 0.8
Glucose 76
Calcium 9.2
Total Bilirubin 0.3
AST 17
ALT 13
Alkaline Phosphatase 86
Vital Signs:
Vital Signs
Temp Pulse Resp BP Pulse Ox
98.0 F 95 18 147/84 95
01/31/24 07:44 01/31/24 07:44 01/31/24 07:44 01/31/24 07:44 01/31/24 07:44
I&O
01/30/24 01/31/24 02/01/24
06:59 06:59 06:59
Intake Total 1679 / 1679
Balance 1679 / 1680 1919
[2024-01-31 15:16] VITALS: BP 144/81
[2024-01-31] MEDS: LOVENOX 40 MG SC (17:18)
[2024-01-31] MEDS: ZANAFLEX 16 MG PO (20:41)
[2024-01-31] MEDS: BENADRYL 50 MG PO (20:41)
[2024-01-31] MEDS: ATIVAN 1 MG PO (20:41)
[2024-01-31] MEDS: RISPERDAL 4 MG PO (20:41)
[2024-01-31] MEDS: NON-FORMULARY ITEM 1 UNIT PO (20:43)
[2024-01-31 23:34] VITALS: BP 108/69
[2024-02-01] MEDS: OFIRMEV 100 IV ×3 (01:46→17:05)
[2024-02-01 07:02] LABS: Hematocrit 29.6 % (37.0-47.0); Hemoglobin 9.8 g/dL (12.0-16.0); Mean Corp Hgb Conc. 33.1 g/dL (33.0-37.0); Mean Corpuscular Hgb 31.9 pg (27.0-31.0); Mean Corpuscular Volume 96.4 fL (81.0-99.0); Mean Platelet Volume 8.5 fL (7.4-10.4); Platelet Count 501 10^3/uL (130-400); Red Blood Cell Count 3.07 10^6/uL (4.20-5.40); Red Cell Dist. Width 14.6 % (11.5-14.5); White Blood Cell Count 17.3 10^3/uL (4.8-10.8)
[2024-02-01 07:31] LABS: ALT (SGPT) 15 U/L (0-35); AST (SGOT) 20 U/L (14-36); Albumin 3.1 g/dl (3.5-5.0); Alkaline Phosphatase 93 U/L (38-126); Blood Urea Nitrogen 18 mg/dl (7-17); Calcium 9.2 mg/dl (8.4-10.2); Carbon Dioxide 29 mmol/L (22-30); Chloride 100 mmol/L (98-107); Direct Bilirubin 0.2 mg/dl (0.0-0.4); Estimated Creatinine Clearance 59 ml/min; Glucose 67 mg/dl (70-99); Potassium 4.4 mmol/L (3.5-5.1); Sodium 137 mmol/L (135-145); Total Bilirubin 0.3 mg/dl (0.2-1.3); Total Protein 5.7 g/dl (6.3-8.2); eGFR > 60.00
[2024-02-01 07:40] VITALS: BP 144/83
[2024-02-01] MEDS: EFFEXOR XR 75 MG PO (08:04)
[2024-02-01] MEDS: EFFEXOR XR 150 MG PO (08:04)
[2024-02-01] MEDS: LAMICTAL 250 MG PO (08:04)
[2024-02-01] MEDS: DETROL LA 4 MG PO (08:04)
[2024-02-01] MEDS: RISPERDAL 2 MG PO (08:04)
--- NOTE | 2024-02-01 12:13 | W.PN.GI.CBS2 ---
Today's Communication / Plan
-
ct today pending results possible cscope tomorrow
Assessment / Plan
-
Vandana is a 63 y.o. female with recent hospital admission for diarrhea and abdominal pain s/p flex sig with Dr. Castillo on 01/10 with endoscopic concerns for pseudomembranous colitis with initial improvement readmitted with persistent symptoms. Repeat
stool testing with C.diff positive antigen, neg. toxin, vanc initially started inconjunction with IV solumedrol, later vanco discontinued by ID. Repeat flex sig 01/25 with improvement as well as improving CRP and abd xray but ongoing symptoms.
Remicade (5mg/kg) given following procedure, on 01/25.
--Flex Sig (01/26/24): Diffuse moderate mucosal changes characterized by congestion (edema), erythema and friability were found in the distal sigmoid colon through the proximal transverse colon, rectum spared.
--Flex Sig (01/11/24): erythematous ulcerated mucosa in desc/sig colon, rectum spared; bx with severe active colitis w/ crypt abscess, mild/mod architectural distortion compatible with chronic colitis.
--01/06/24 CT A/P oral only: Diffuse colonic wall thickening likely related to an infectious or inflammatory pancolitis. Overall somewhat limited evaluation in the absence of intravenous contrast.
--01/10/24 CT Abd/pel W Iv And Oral Contr: Findings compatible with colitis, contiguous involvement from the superior right colon through the rectum. There is interval increase in gaseous distention of the colon, particularly the transverse colon,
measurements given above. No evidence for free intraperitoneal air. No evidence for pneumatosis. Dilated air and fluid-filled loops of small bowel, most likely an adynamic ileus.
--01/21/24 CT Abd/pel W Iv And Oral Contr: Progressive colitis, most pronounced involving the transverse colon.
CRP 80.5 --> 70.50 --> 55.90 --> 56.90 --> 149.70-0->81.80
Fe 22, TIBC 161, %sat 13
C.diff negative x2 (previous hospitalization) with repeat C.diff +antigen, negative toxin , Repeat stool cultures negative. Initially placed on ertapenem and PO vanc, both d/rene per ID recommendations.
Her presentation is not consistent with inflammatory bowel disease given the acuity of her symptoms, however, pathology does show chronicity. Failed to respond to 3 days of IV steroids. Remicade infusion given 01/25 and 01/27 with some symptomatic
improvement but still with abdominal pain (no further diarrhea).
Her symptoms seem to be out of proportion to what we are seeing objectively. Her exam to me continues to be unremarkable when I push on her belly she is distractable (as long as I talk to her while I examine her she has no tenderness) although she
was stating she was reporting active 9 out of 10 pain today. Reviewing her labs, WBC went up today a little, bicarb normal, albumin improved, CRP slightly up, Hb improved, platelets trending down (elevated due to inflammation).
I personally reviewed her X-ray today improved from yesterday - supporting narcotics may have been playing a role why X-ray looked worse on 01/29 (narcotics stopped afterwards).
Recommendations:
- continue to hold narcotics, continue IV Tylenol
- with worsening pain will get CT a/p today (last done 01/20) ensure no appendicitis etc with the RLQ pain
- if CT normal plan for FULL cscope tomorrow to evaluate the more proximal colon, small bowel to determine why she is having such severe pain d/w patient
- trend CRP
- will have RN record all BM to help us - diarrhea seems to have improved
- I lowered dose of steroids she got solumedrol 20 q12 01/29 and only solumedrol 20 x1 dose 01/30 in case we need to start Rinvoq with concern for increased risk of perforation (unclear how much steroids are helping) as well as in case she needs
surgery - will wait for CT to decide if we give her dose of solumedrol today
- I d/w path 01/29 - will add on CMV and will get result on Friday; path from flex sig 01/25 pending
- Clear liquid diet
- Continue Lovenox especially if start Rinvoq risk of VTE
- Can consider additional dose of IFX (I checked pharmacy may not have in stock until /Fri) vs Rinvoq pending objective data as above
- I ordered HIV - case seems atypical as above
I discussed with hospitalist and nurse and pharmacist
Total Time Spent with Patient (in minutes): 50
Subjective
Subjective
Date of Service: February 01, 2024
7 BM yesterday but more formed NOT liquid
Last BM 20:00
However having severe 9/10 pain RLQ per patient but she is sitting comfortably in bed
Objective
Data Reviewed
Laboratory Data:
Laboratory Results
02/01/24 05:37
02/01/24 05:37
Laboratory Results
Magnesium 2.0 mg/dl (1.6-2.3) 01/22/24 07:19
Total Bilirubin 0.3 mg/dl (0.2-1.3) 02/01/24 05:37
AST 20 U/L (14-36) 02/01/24 05:37
ALT 15 U/L (0-35) 02/01/24 05:37
Alkaline Phosphatase 93 U/L (38-126) 02/01/24 05:37
Lipase 78 U/L (23-300) 01/21/24 17:11
Vital Signs and I&O:
Vital Signs
Temp Pulse Resp BP Pulse Ox
98.5 F 99 16 144/83 96
02/01/24 07:40 02/01/24 07:40 02/01/24 07:40 02/01/24 07:40 02/01/24 07:40
I&O
01/31/24 02/01/24 02/02/24
06:59 06:59 06:59
Intake Total 1919 960 / 960
Balance 1919 960 / 960
Physical Exam
Physical Exam
HEENT: Anicteric
Cardiology: Normal Sinus Rhythm
Pulmonary: Clear
GI: Non Distended and Non Tender
Neuro: Non Focal
--- NOTE | 2024-02-01 12:14 | W.PN.HOSP.TC ---
Today's Communication/Plan
-
CTAP
+- c-scope in 24hours
Assessment / Plan
Assessment / Plan
NAD, resting comfortably in bed
Scleral anicteric
Moist mucous membranes
No JVD
CTA bilateral
Normal S1-S2 RUSB 2/6 ISELA
Soft tender-diffuse nondistended bowel sounds active
No peripheral pitting edema
Moves extremities spontaneously
AAOx3
Progressive pancolitis most pronounced at transverse colon. Concern for IBD/Crohn's flare. S/p flex sig with rectal sparing demonstration. s/p 2 doses of Remicade.
-GI considering to give additional dose of Remicade on Friday. Holding steroids at this time.
-GI has resume clear liquid diet. Will see how she tolerates
-CRP has improved significantly since presenting.
- -GI plans for repeat CT tiday. Possible for full C-scope tomorrow, if planned they will order the prep.
GI and surgery following.
Per GI may require additional transition of Biologics or even surgical eval if continues to have abdominal pain diarrhea.
Should be noted that stool cultures have been negative. C. difficile antigen was positive toxin negative initially on p.o. vancomycin discontinued by infectious diseases.
DNR
Lovenox
Anticipated Discharge: Within 24 hours
Subjective/Interval History
-
Date of Service: February 01, 2024
seen and examined
no new complaints
no acute ovenright events
still havubg abd pain. no tcontrolled by iv tylenol
explained why we are avoiding narcotics, verbalized understanding
took a shower this am.
Objective Data
-
Labs:
Laboratory Results
02/01/24
05:37
WBC 17.3 H
Hgb 9.8 L
Hct 29.6 L
Plt Count 501 H
Sodium 137
Potassium 4.4
Chloride 100
Carbon Dioxide 29
BUN 18 H
Creatinine 0.9
Glucose 67 L
Calcium 9.2
Total Bilirubin 0.3
AST 20
ALT 15
Alkaline Phosphatase 93
Vital Signs:
Vital Signs
Temp Pulse Resp BP Pulse Ox
98.5 F 99 16 144/83 96
02/01/24 07:40 02/01/24 07:40 02/01/24 07:40 02/01/24 07:40 02/01/24 07:40
I&O
01/31/24 02/01/24 02/02/24
06:59 06:59 06:59
Intake Total 1919 960 / 960
Balance 1919 960 / 960
[2024-02-01] MEDS: OMNIPAQUE 50 ML PO (12:55)
[2024-02-01 15:20] VITALS: BP 127/80
[2024-02-01] MEDS: LOVENOX 40 MG SC (17:05)
--- NOTE | 2024-02-01 17:28 | W.PN.UPDATE ---
Update Note
Progress Note Update
I personally reviewed the CT images- still with severe colitis in the descending/transverse colon.
I don't think repeating the colonoscopy tomorrow will add much at this point.
If she is still having pain, we should move forward with the Rinvoq tomorrow.
No BM today, stool seen in left side of colon on CT.
I am not going to give steroids today (or tomorrow) with the risk of perforation with Rinvoq.
Additionally if she fails the Rinvoq she will need surgery and would be better to be off steroids for surgery.
I ordered another fecal calpro although this willl take days to result.
I attempted to call patient to update her with plan via cell/room but unable to reach her - I touched base with her nurse and hospitalist.
[2024-02-01] MEDS: ZANAFLEX 16 MG PO (20:42)
[2024-02-01] MEDS: ATIVAN 1 MG PO (20:43)
[2024-02-01] MEDS: NON-FORMULARY ITEM 1 UNIT PO (20:43)
[2024-02-01] MEDS: BENADRYL 50 MG PO (20:43)
[2024-02-01] MEDS: RISPERDAL 4 MG PO (20:43)
[2024-02-01 23:29] VITALS: BP 90/45
[2024-02-02 03:49] VITALS: BP 137/83
[2024-02-02] MEDS: DETROL LA 4 MG PO (07:34)
[2024-02-02] MEDS: LAMICTAL 250 MG PO (07:34)
[2024-02-02 07:35] LABS: Hematocrit 30.5 % (37.0-47.0); Hemoglobin 10.3 g/dL (12.0-16.0); Mean Corp Hgb Conc. 33.8 g/dL (33.0-37.0); Mean Corpuscular Hgb 31.9 pg (27.0-31.0); Mean Corpuscular Volume 94.4 fL (81.0-99.0); Mean Platelet Volume 8.5 fL (7.4-10.4); Platelet Count 483 10^3/uL (130-400); Red Blood Cell Count 3.23 10^6/uL (4.20-5.40); Red Cell Dist. Width 15.1 % (11.5-14.5); White Blood Cell Count 13.6 10^3/uL (4.8-10.8)
[2024-02-02] MEDS: RISPERDAL 2 MG PO (07:35)
[2024-02-02] MEDS: EFFEXOR XR 75 MG PO (07:35)
[2024-02-02] MEDS: TYLENOL 650 MG PO (07:36)
[2024-02-02] MEDS: EFFEXOR XR 150 MG PO (07:36)
[2024-02-02 08:00] VITALS: BP 111/68
[2024-02-02 08:09] LABS: Blood Urea Nitrogen 17 mg/dl (7-17); Calcium 9.3 mg/dl (8.4-10.2); Carbon Dioxide 27 mmol/L (22-30); Chloride 102 mmol/L (98-107); Estimated Creatinine Clearance 66 ml/min; Glucose 84 mg/dl (70-99); Potassium 4.7 mmol/L (3.5-5.1); Sodium 137 mmol/L (135-145); eGFR > 60.00
[2024-02-02] MEDS: NON-FORMULARY ITEM 1 UNIT PO ×2 (09:47→20:40)
--- NOTE | 2024-02-02 09:58 | CM ---
[employer]float cryptologic manager reviewed patient's chart and plan is to home no needs when stable.
Plan; Home no needs.
--- NOTE | 2024-02-02 11:02 | W.PN.GI.CBS2 ---
Addendum entered and electronically signed by Gracie Mae MD 02/02/24 15:20:
will add on vancomycin with Ag + toxin negative in past
I d/w path today CMV negative will addend their report today
Perhaps this is more Crohn's on d/w Dr. Kan with rectal sparing on scope could consider MRE
Addendum entered and electronically signed by Gracie Mae MD 02/02/24 11:18:
50 min spent coordination of care of patient
Original Note:
Today's Communication / Plan
-
start Rinvoq; daily Xray/CRP
Assessment / Plan
-
Vandana is a 63 y.o. female with recent hospital admission for diarrhea and abdominal pain s/p flex sig with Dr. Castillo on 01/10 with endoscopic concerns for pseudomembranous colitis with initial improvement readmitted with persistent symptoms. Repeat
stool testing with C.diff positive antigen, neg. toxin, vanc initially started inconjunction with IV solumedrol, later vanco discontinued by ID. Repeat flex sig 01/25 with improvement as well as improving CRP and abd xray but ongoing symptoms.
Remicade (5mg/kg) given following procedure, on 01/25.
--Flex Sig (01/26/24): Diffuse moderate mucosal changes characterized by congestion (edema), erythema and friability were found in the distal sigmoid colon through the proximal transverse colon, rectum spared.
--Flex Sig (01/11/24): erythematous ulcerated mucosa in desc/sig colon, rectum spared; bx with severe active colitis w/ crypt abscess, mild/mod architectural distortion compatible with chronic colitis.
--01/06/24 CT A/P oral only: Diffuse colonic wall thickening likely related to an infectious or inflammatory pancolitis. Overall somewhat limited evaluation in the absence of intravenous contrast.
--01/10/24 CT Abd/pel W Iv And Oral Contr: Findings compatible with colitis, contiguous involvement from the superior right colon through the rectum. There is interval increase in gaseous distention of the colon, particularly the transverse colon,
measurements given above. No evidence for free intraperitoneal air. No evidence for pneumatosis. Dilated air and fluid-filled loops of small bowel, most likely an adynamic ileus.
--01/21/24 CT Abd/pel W Iv And Oral Contr: Progressive colitis, most pronounced involving the transverse colon.
CRP 80.5 --> 70.50 --> 55.90 --> 56.90 --> 149.70-0->81.80
Fe 22, TIBC 161, %sat 13
C.diff negative x2 (previous hospitalization) with repeat C.diff +antigen, negative toxin , Repeat stool cultures negative. Initially placed on ertapenem and PO vanc, both d/rene per ID recommendations.
Her presentation is not consistent with inflammatory bowel disease given the acuity of her symptoms, however, pathology does show chronicity. Failed to respond to 3 days of IV steroids. Remicade infusion given 01/25 and 01/27 with some symptomatic
improvement but still with abdominal pain (no further diarrhea).
Her symptoms seem to be out of proportion to what we are seeing objectively. Her exam to me continues to be unremarkable when I push on her belly she is distractable (as long as I talk to her while I examine her she has no tenderness) although she
was stating she was reporting active 9 out of 10 pain today. Reviewing her labs, WBC trending down, bicarb normal, albumin improved, CRP trending up again, Hb improved, platelets trending down (elevated due to inflammation).
Suspect narcotics may have been playing a role why X-ray looked worse on 01/29 (narcotics stopped afterwards).
Repeat CT yesterday 01/31 showed again severe colitis
Recommendations:
- continue to hold narcotics, continue IV Tyleno
- Will plan for Rinvoq today - again reviewed with patient today risks of Rinvoq:
We discussed risks and benefits of starting Rinvoq. Adverse events include infection, mortality from cardiovascular events, malignancy such as lymphoma, thrombosis, hypersensitivity, rare reports of GI perforation, zoster, neutropenia, anemia,
lymphopenia, elevated LFTs, elevated lipids. Patient needs periodic skin check for with risk of skin cancer. Recommend shingles vaccine before Rinvoq if possible. Recommend baseline CBC, LFTs and lipid and repeat 12 weeks posttherapy.
Will typically see a response to Rinvoq in 2-5 days
- trend CRP
- trend abd Xray
- I have tapered her off steroids (last dose 01/30) twofold: - there is a small risk of perforation with Rinvoq; - if she fails Rinvoq she will need surgery
- I reached out to colorectal surgery again today (I s/w them Friday and gen surg on Sat as well) and did ask they continue to follow the patient
- I d/w path 01/29 - will add on CMV and will get result on Friday; path from flex sig 01/25 pending
- Clear liquid diet (with possible surgery/perforation risk with Rinvoq) - if her pain improves plan to advance her diet
- Continue Lovenox especially if start Rinvoq risk of VTE
- I ordered HIV - case seems atypical as above
- Repeat calpro ordered 01/31 pending
I discussed with hospitalist and surgery and pharmacist
Subjective
Subjective
Date of Service: February 02, 2024
Still 01/26 pain
One BM last night one this AM soft but solid
Objective
Data Reviewed
Laboratory Data:
Laboratory Results
02/02/24 07:03
02/02/24 07:03
Laboratory Results
Magnesium 2.0 mg/dl (1.6-2.3) 01/22/24 07:19
Total Bilirubin 0.3 mg/dl (0.2-1.3) 02/01/24 05:37
AST 20 U/L (14-36) 02/01/24 05:37
ALT 15 U/L (0-35) 02/01/24 05:37
Alkaline Phosphatase 93 U/L (38-126) 02/01/24 05:37
Lipase 78 U/L (23-300) 01/21/24 17:11
Vital Signs and I&O:
Vital Signs
Temp Pulse Resp BP Pulse Ox
98.5 F 97 16 111/68 94
02/02/24 08:00 02/02/24 08:00 02/02/24 08:00 02/02/24 08:00 02/02/24 08:00
I&O
02/01/24 02/02/24 02/03/24
06:59 06:59 06:59
Intake Total 960 / 960 2340 / 2340
Balance 960 / 960 2340 / 2340
Physical Exam
Physical Exam
GI: Non Distended and Non Tender
--- NOTE | 2024-02-02 12:03 | W.PN.HOSP.TC ---
Today's Communication/Plan
-
Start Rinvoq
Assessment / Plan
Assessment / Plan
Gen-AAOx3, NAD
HEENT-NC, AT, anicteric, clear oral mm
Neck-supple
CV-reg, no M, +S1/S2
Lungs-clear B/L
Abd-soft, NT, ND
Ext-no edema
Musculoskeletal-no cyanosis, clubbing
Skin-warm and dry
Neuro-grossly non-focal
Psych-calm, cooperative
Acute colitis -concern for ulcerative colitis. Discussed with GI service. 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 To start Rinvoq today. Tolerating clear liquid diet, advance as per GI service.
Off steroids now.
Minimize use of opiates.
Chronic normocytic anemia -suspect inflammatory anemia. Hemoglobin stable.
Essential hypertension -stable.
History of migraines
Anxiety/depression
DNR
Updated at the bedside.
Anticipated Discharge: > 48 hours
Subjective/Interval History
-
Date of Service: February 02, 2024
Patient seen/examined. Still complaining of abdominal pain, intermittent. Tolerating clears.
Objective Data
-
Labs:
Laboratory Results
02/02/24
07:03
WBC 13.6 H
Hgb 10.3 L
Hct 30.5 L
Plt Count 483 H
Sodium 137
Potassium 4.7
Chloride 102
Carbon Dioxide 27
BUN 17
Creatinine 0.8
Glucose 84
Calcium 9.3
Vital Signs:
Vital Signs
Temp Pulse Resp BP Pulse Ox
98.5 F 97 16 111/68 94
02/02/24 08:00 02/02/24 08:00 02/02/24 08:00 02/02/24 08:00 02/02/24 08:00
I&O
02/01/24 02/02/24 02/03/24
06:59 06:59 06:59
Intake Total 960 / 960 2340 / 2340
Balance 960 / 960 2340 / 2340
Review of Systems
-
History Source: Patient
All other systems: Reviewed and negative
[2024-02-02] MEDS: OFIRMEV 100 IV (14:39)
[2024-02-02 15:45] VITALS: BP 133/79
--- NOTE | 2024-02-02 16:33 | W.PN.UPDATE ---
Update Note
Progress Note Update
got msg from rn
pt feels better!
10/26 pain
advanced diet to low residue
[2024-02-02] MEDS: FIRVANQ 250 MG PO ×2 (17:37→23:05)
[2024-02-02] MEDS: LOVENOX 40 MG SC (17:37)
[2024-02-02] MEDS: BENADRYL 50 MG PO (20:39)
[2024-02-02] MEDS: ATIVAN 1 MG PO (20:39)
[2024-02-02] MEDS: RISPERDAL 4 MG PO (20:39)
[2024-02-02] MEDS: ZANAFLEX 16 MG PO (20:40)
[2024-02-02 22:45] VITALS: BP 81/54
[2024-02-02] MEDS: NSS 500 IV (23:05)
[2024-02-02 23:15] VITALS: BP 81/54
[2024-02-03 01:08] VITALS: BP 105/63
[2024-02-03] MEDS: OFIRMEV 100 IV (04:51)
[2024-02-03] MEDS: FIRVANQ 250 MG PO ×2 (04:59→11:53)
[2024-02-03 07:52] VITALS: BP 136/79
--- NOTE | 2024-02-03 08:48 | W.PN.GI.CBS2 ---
Addendum entered and electronically signed by Corina Kan DO 02/03/24 12:41:
Patient seen and examined independently of the ELEMENTARY LIBRARIAN. I agree with her note with my additions below
Vandana was started on Rinvoq 45mg yesterday for suspected newly diagnosed crohns colitis after failing two doses of Remicade. She went from 9/10 pain to 5/10 and now zero pain. She's Tolerating a low residue diet and she even had soft brown bowel
movements. Her inflammatory markers are improving. Clinically looks much better.
She was also started on vanco 250 due to not improving clinically, having a positive antigen and little downside since she was on her way to colectomy based on her symptoms.
On exam she is soft and non-tender. Rinvoq works quickly.
Plan:
-- spoke to her and her - if she continues to do well and tolerates her low residue diet for lunch, she can be discharged today - no plans for OR considering her dramatic turnaround
-- I have given her samples of Rinvoq 45mg (indication: Crohns colitis) which is taken for 12wks, then dropped to maintenance
-- Follow up appt with Dr. Hooker on 02/11 at 8am
-- upon discharge continue and complete 10 day course of vancomycin (started yesterday, 02/01) - antigen +, reports of effective adjuvant treatment in IBD with little downside
-- I have asked my office to work on the PA for her Rinvoq chcf
Original Note:
Today's Communication / Plan
-
Continue on Rinvoq
Assessment / Plan
-
Vandana is a 63 y.o. female with recent hospital admission for diarrhea and abdominal pain s/p flex sig with Dr. Castillo on 01/10 with endoscopic concerns for pseudomembranous colitis with initial improvement readmitted with persistent symptoms. Repeat
stool testing with C.diff positive antigen, neg. toxin, vanc initially started inconjunction with IV solumedrol, later vanco discontinued by ID. Repeat flex sig 01/25 with improvement as well as improving CRP and abd xray but ongoing symptoms.
Remicade (5mg/kg) given following procedure, on 01/25.
-- 02/03/2024 obstruction series:IMPRESSION: No acute disease of the chest. No evidence of intestinal obstruction. Moderate residual oral contrast in the colon. Improved.
--Flex Sig (01/26/24): Diffuse moderate mucosal changes characterized by congestion (edema), erythema and friability were found in the distal sigmoid colon through the proximal transverse colon, rectum spared.
--Flex Sig (01/11/24): erythematous ulcerated mucosa in desc/sig colon, rectum spared; bx with severe active colitis w/ crypt abscess, mild/mod architectural distortion compatible with chronic colitis.
--01/06/24 CT A/P oral only: Diffuse colonic wall thickening likely related to an infectious or inflammatory pancolitis. Overall somewhat limited evaluation in the absence of intravenous contrast.
--01/10/24 CT Abd/pel W Iv And Oral Contr: Findings compatible with colitis, contiguous involvement from the superior right colon through the rectum. There is interval increase in gaseous distention of the colon, particularly the transverse colon,
measurements given above. No evidence for free intraperitoneal air. No evidence for pneumatosis. Dilated air and fluid-filled loops of small bowel, most likely an adynamic ileus.
--01/21/24 CT Abd/pel W Iv And Oral Contr: Progressive colitis, most pronounced involving the transverse colon.
CRP 80.5 --> 70.50 --> 55.90 --> 56.90 --> 149.70-0->81.80
Fe 22, TIBC 161, %sat 13
C.diff negative x2 (previous hospitalization) with repeat C.diff +antigen, negative toxin , Repeat stool cultures negative. Initially placed on ertapenem and PO vanc, both d/rene per ID recommendations.
Her presentation is not consistent with inflammatory bowel disease given the acuity of her symptoms, however, pathology does show chronicity. Failed to respond to 3 days of IV steroids. Remicade infusion given 01/25 and 01/27 with some symptomatic
improvement but still with abdominal pain (no further diarrhea).
Her symptoms seem to be out of proportion to what we are seeing objectively. Her exam to me continues to be unremarkable when I push on her belly she is distractable (as long as I talk to her while I examine her she has no tenderness) although she
was stating she was reporting active 9 out of 10 pain today. Reviewing her labs, WBC trending down, bicarb normal, albumin improved, CRP trending up again, Hb improved, platelets trending down (elevated due to inflammation).
Suspect narcotics may have been playing a role why X-ray looked worse on 01/29 (narcotics stopped afterwards).
Repeat CT 01/31 showed again severe colitis
Started on Firvanq for C. difficile positive antigen, toxin negative
--Patient started Rinvoq on 02/02/24
Recommendations:
- continue to hold narcotics, continue IV Tylenol
-Continue Rinvoq- again reviewed with patient today risks of Rinvoq:
We discussed risks and benefits of starting Rinvoq. Adverse events include infection, mortality from cardiovascular events, malignancy such as lymphoma, thrombosis, hypersensitivity, rare reports of GI perforation, zoster, neutropenia, anemia,
lymphopenia, elevated LFTs, elevated lipids. Patient needs periodic skin check for with risk of skin cancer. Recommend shingles vaccine before Rinvoq if possible. Recommend baseline CBC, LFTs and lipid and repeat 12 weeks posttherapy.
Will typically see a response to Rinvoq in 2-5 days
- trend CRP, improving 30.0 down from 44.1
- abd xr improving
- She has been tapered off steroids (last dose 01/30) twofold: - there is a small risk of perforation with Rinvoq; - if she fails Rinvoq she will need surgery
- colorectal surgery aware of patient (I s/w them Friday and gen surg on Sat as well) and did ask they continue to follow the patient
- I d/w path 01/29 -negative CMV. Negative for lymphocytic collagenous colitis.
-Continues on low residue diet
- Continue Lovenox especially if start Rinvoq risk of VTE
- I ordered HIV - case seems atypical as above
- Repeat calpro ordered 01/31 pending
I discussed with hospitalist and surgery and pharmacist
Subjective
Subjective
Date of Service: February 03, 2024
Patient starting to feel much improved. Had first dose of Rinvoq yesterday. Continues on Firvanq. Had 3 soft bowel movements overnight. The last 1 being 'snake like'. This is becoming more formed. She is tolerating a low residue diet. Her
abdominal discomfort is improving and is now a 5 out of 10. This is much improved. Only required IV Tylenol overnight. CRP is 30.0 down from 44.1 from yesterday. X-ray of the abdomen improved. Oral contrast seen within the colon. No
obstruction.
Objective
Data Reviewed
Laboratory Data:
Laboratory Results
02/02/24 07:03
02/02/24 07:03
Laboratory Results
Magnesium 2.0 mg/dl (1.6-2.3) 01/22/24 07:19
Total Bilirubin 0.3 mg/dl (0.2-1.3) 02/01/24 05:37
AST 20 U/L (14-36) 02/01/24 05:37
ALT 15 U/L (0-35) 02/01/24 05:37
Alkaline Phosphatase 93 U/L (38-126) 02/01/24 05:37
Lipase 78 U/L (23-300) 01/21/24 17:11
Vital Signs and I&O:
Vital Signs
Temp Pulse Resp BP Pulse Ox
98.6 F 100 18 136/79 93
02/03/24 07:52 02/03/24 07:52 02/03/24 07:52 02/03/24 07:52 02/03/24 07:52
I&O
02/02/24 02/03/24 02/04/24
06:59 06:59 06:59
Intake Total 2340 / 2340 3200 / 3200
Balance 2340 / 2340 3200 / 3200
Physical Exam
Physical Exam
HEENT: Anicteric
Cardiology: Normal Sinus Rhythm
Pulmonary: Clear
GI: Soft, Non Distended, Non Tender and Normal Bowel Sounds
Extremities: No Edema
Neuro: Non Focal
[2024-02-03] MEDS: RISPERDAL 2 MG PO (09:04)
[2024-02-03] MEDS: DETROL LA 4 MG PO (09:04)
[2024-02-03] MEDS: EFFEXOR XR 75 MG PO (09:04)
[2024-02-03] MEDS: LAMICTAL 250 MG PO (09:04)
[2024-02-03] MEDS: EFFEXOR XR 150 MG PO (09:05)
[2024-02-03] MEDS: NON-FORMULARY ITEM 1 UNIT PO (09:06)
--- NOTE | 2024-02-03 09:55 | W.PN.CRS1 ---
Today's Communication / Plan
-
doing better on Rinvoq
?OR if no improvement
Assessment/Plan
-
63 yo female patient with no relevant PMHx and a remote PSHx of gastric bypass and hysterectomy performed more than ten years ago, who presents with recurrent severe abdominal pain and diarrhea, associated fever, since January 07, initially
discharged but readmitted due to persistent symptoms and fever, due to unspecified colitis of unknown etiology.
-WBC normal
-Rinvoq/steroids per GI
-Exam is improving - will follow
-She is tentatively placed on the OR schedule for , 02/04 should she worsen despite Rinvoq. Discussed this possibility with the patient who is in agreement.
-Xray examine: No evidence of intestinal obstruction. Moderate residual oral contrast in the colon. Improved.
Subjective Data
Subjective Data
Date of Service: February 03, 2024
Patient states her pain has improved since her first dose of Rinvoq. She is having more formed bowel movements. Her pain yesterday was a 8/10 and the worst overnight was a 6/10. She currently has no pain now. She has been tolerating a diet.
Objective Data
-
Vital Signs
Temp Pulse Resp BP Pulse Ox
98.6 F 100 18 136/79 93
02/03/24 07:52 02/03/24 07:52 02/03/24 07:52 02/03/24 07:52 02/03/24 07:52
Intake & Output
02/02/24 02/03/24 02/04/24
06:59 06:59 06:59
Intake Total 2340 / 2340 3200 / 3200
Balance 2340 / 2340 3200 / 3200
Intake:
Oral fluids 2340 / 2340 2600 / 2600
IV fluids (Total) 500 / 500
IV piggybacks 100 / 100
Other:
Number of approximated MODERATE 4 2
amounts of urine
Number of approximated LARGE 3 2
amounts of urine
Lab Results
02/02/24 07:03
02/02/24 07:03
Physical Exam
-
General: No Acute Distress and AOx3
Abdomen: Soft, Non Distended and Non Tender
Skin: Warm and Dry
Data Reviewed
-
Diagnostic Radiology: Image Reviewed and Report Reviewed
--- NOTE | 2024-02-03 10:18 | CM ---
Patient seen at bedside with .
Discussed case advocate available for any needs.
No needs indicated at this time.
PLAN: Discharge when medically stable to home. No anticipated needs.
to transport.
--- NOTE | 2024-02-03 11:10 | W.PN.HOSP.TC ---
Today's Communication/Plan
-
Await GI input
Assessment / Plan
Assessment / Plan
Gen-AAOx3, NAD
HEENT-NC, AT, anicteric, clear oral mm
Neck-supple
CV-reg, no M, +S1/S2
Lungs-clear B/L
Abd-soft, NT, ND
Ext-no edema
Musculoskeletal-no cyanosis, clubbing
Skin-warm and dry
Neuro-grossly non-focal
Psych-calm, cooperative
Acute colitis -concern for ulcerative colitis. Discussed with GI service. 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 Started Rinvoq yesterday with significant improvement in pain and symptoms. Diet advanced to low residue.
Stool C. difficile antigen positive, toxin negative. Suspect colonization. GI service resumed oral vancomycin 02/01, will discuss with them.
Chronic normocytic anemia -suspect inflammatory anemia. Hemoglobin stable.
Essential hypertension -stable.
History of migraines
Anxiety/depression
DNR
Dispo -can discharge if cleared by GI and general surgery service. Outpatient follow-up.
Updated at the bedside.
Anticipated Discharge: Today
Subjective/Interval History
-
Date of Service: February 03, 2024
Patient seen and examined. Feels much better. Denies any abdominal pain. Requesting discharge.
Objective Data
-
Vital Signs:
Vital Signs
Temp Pulse Resp BP Pulse Ox
98.6 F 100 18 136/79 93
02/03/24 07:52 02/03/24 07:52 02/03/24 07:52 02/03/24 07:52 02/03/24 07:52
I&O
02/02/24 02/03/24 02/04/24
06:59 06:59 06:59
Intake Total 2340 / 2340 3200 / 3200
Balance 2340 / 2340 3200 / 3200
Review of Systems
-
History Source: Patient
All other systems: Reviewed and negative
[2024-02-03 12:39] LABS: HIV Combo Negative (Negative)
--- NOTE | 2024-02-03 12:52 | W.DS.TRANS ---
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
-
Discharge Instructions:
Discharge Diagnosis/Procedures Ulcerative colitis flare
Diet Low Residue
Activity As tolerated
Driving Restrictions As prior to admission
Bathing Restrictions None
Instructions:
Stand-Alone Forms:
Changes to Home Medications: No
Discharge Medications:
DC Medications w/original date entered in [employer]
risperidone 1 mg tablet 2 mg PO DAILY Mental Health/Anxiety 06/28/14
tizanidine 4 mg tablet 16 mg PO HS Muscle Spasms 06/28/14
amlodipine 5 mg tablet 5 mg PO DAILY Blood Pressure 10/06/17
diphenhydramine HCl 25 mg capsule (Banophen) 50 mg PO HS anti-histamine 10/06/17
mirabegron 50 mg tablet,extended release 24 hr (Myrbetriq) 50 mg PO DAILY Urinary Issue 10/06/17
lamotrigine 100 mg tablet 100 mg PO DAILY Seizures 10/27/19
lamotrigine 150 mg tablet (Lamictal) 150 mg PO DAILY Seizures 10/27/19
lorazepam 0.5 mg tablet 1 mg PO HS anxiety 10/27/19
risperidone 2 mg tablet 4 mg PO HS Mental Health/Anxiety 10/27/19
venlafaxine 225 mg tablet,extended release 24 hr 225 mg PO DAILY Depression 10/27/19
zaleplon 10 mg capsule 10 mg PO HS Sleep 10/27/19
zolpidem 5 mg tablet 5 mg PO HS Sleep 10/27/19
eletriptan 40 mg tablet 40 mg PO DAILYPRN PRN migraine 01/21/24
galcanezumab-gnlm 120 mg/mL subcutaneous pen injector (Emgality Pen) 120 mg SC QMONTH 01/21/24
hydrocodone 5 mg-acetaminophen 325 mg tablet 1 tab PO Q6HPRN PRN severe pain 01/21/24
valacyclovir 500 mg tablet 500 mg PO DAILYPRN PRN viral infection 01/21/24
upadacitinib 45 mg tablet,extended release 24 hr (Rinvoq) 45 mg PO DAILY 8 weeks #56 tabs 02/03/24
vancomycin 50 mg/mL oral solution 250 mg (5 mL) PO Q6 #180 mL 02/03/24
Home Medication Changes
Pending Results: No
[2024-02-03 13:59] VITALS: BP 124/79
[2024-02-04 10:48] LABS: Calprotectin, Fecal >3000 ug/g (<=49)
== END 2024-02-03 14:13 | disposition home or self-care (01) | DRG 872 ==
LOC: 4 WEST ACU 22:47
PROVIDERS: Hospitalist; Internal Medicine; Internal Medicine Gastroenterology; Nurse Practitioner Adult Health; Physician Assistant; ADMITTING PHYSICIAN Internal Medicine; ATTENDING PHYSICIAN Hospitalist; CONSULT PHYSICIAN Internal Medicine Gastroenterology; EMERGENCY PHYSICIAN Student in an Organized Health Care Education/Training Program; FAMILY PHYSICIAN Family Medicine; OTHER PHYSICIAN Student in an Organized Health Care Education/Training Program; OTHER PHYSICIAN Surgery
PROC: 0DBP8ZX Excision of Rectum, Via Natural or Artificial Opening Endoscopic, Diagnostic (ICD-10-PCS; 2024-01-26)
PROC: 0DBN8ZX Excision of Sigmoid Colon, Via Natural or Artificial Opening Endoscopic, Diagnostic (ICD-10-PCS; 2024-01-26)
DX: A41.9 Sepsis, unspecified organism (principal); E87.1 Hypo-osmolality and hyponatremia; K56.7 Ileus, unspecified; K51.00 Ulcerative (chronic) pancolitis without complications; Z66 Do not resuscitate; D72.828 Other elevated white blood cell count; T38.0X5A Adverse effect of glucocorticoids and synthetic analogues, initial encounter; E78.00 Pure hypercholesterolemia, unspecified; I10 Essential (primary) hypertension; F41.9 Anxiety disorder, unspecified; F32.9 Major depressive disorder, single episode, unspecified; G43.909 Migraine, unspecified, not intractable, without status migrainosus; D64.9 Anemia, unspecified; D75.839 Thrombocytosis, unspecified; K64.8 Other hemorrhoids; Z98.84 Bariatric surgery status; Z91.040 Latex allergy status; Z79.899 Other long term (current) drug therapy; Z22.1 Carrier of other intestinal infectious diseases
CPT/HCPCS: 88305; 74022; 74177; 80048; 80053; 80061; 80076; 82248; 83605; 83690; 83735; 83993; 85025; 85027; 85652; 86140; 86480; 86704; 86705; 86706; 86803; 87040; 87045; 87046; 87324; 87340; 87389; 87427; 87449; 88342; 93306; 96361; 96365; 96375; 99285; J1335; J1745; J2916; Q9967

== ENCOUNTER 2024-10-19 06:22 | Day surgery (SDC) | payer BC, SELFPAY | END 2024-10-19 11:36 | disposition home or self-care (01) | LOC: GI 06:22 | PROVIDERS: ATTENDING PHYSICIAN Internal Medicine; FAMILY PHYSICIAN Family Medicine | DX: Z12.11 Encounter for screening for malignant neoplasm of colon (principal); K57.30 Diverticulosis of large intestine without perforation or abscess without bleeding; K50.10 Crohn's disease of large intestine without complications; K64.8 Other hemorrhoids; R63.4 Abnormal weight loss; K44.9 Diaphragmatic hernia without obstruction or gangrene; K22.89 Other specified disease of esophagus; K22.10 Ulcer of esophagus without bleeding; D50.9 Iron deficiency anemia, unspecified; K50.90 Crohn's disease, unspecified, without complications; K63.9 Disease of intestine, unspecified; K29.50 Unspecified chronic gastritis without bleeding; K31.A15 Gastric intestinal metaplasia without dysplasia, involving multiple sites | CPT/HCPCS: 45380; 43239; 88305; 88342 ==

== ENCOUNTER → 2024-11-02 09:54 | Outpatient (REF) | payer BC, SELFPAY | LOC: RAD 09:54 | PROVIDERS: ATTENDING PHYSICIAN Internal Medicine; FAMILY PHYSICIAN Family Medicine | DX: K50.118 Crohn's disease of large intestine with other complication (principal); R63.4 Abnormal weight loss | CPT/HCPCS: 74177; Q9967 ==

== ENCOUNTER → 2024-12-17 09:34 | Outpatient (REF) | payer BC, SELFPAY | LOC: RAD 09:34 | PROVIDERS: ATTENDING PHYSICIAN Family Medicine | DX: Z13.820 Encounter for screening for osteoporosis (principal); Z78.0 Asymptomatic menopausal state | CPT/HCPCS: 77080 ==

== ENCOUNTER 2025-03-29 06:35 | Day surgery (SDC) | payer BC, SELFPAY | END 2025-03-29 09:53 | disposition home or self-care (01) | LOC: GI 06:35 | PROVIDERS: ATTENDING PHYSICIAN Internal Medicine | DX: K22.10 Ulcer of esophagus without bleeding (principal); K44.9 Diaphragmatic hernia without obstruction or gangrene; R63.4 Abnormal weight loss; K29.50 Unspecified chronic gastritis without bleeding | CPT/HCPCS: 43239; 88305; 88342 ==